=== PATIENT | female | born 1940 ===

== ENCOUNTER 2016-12-06 19:30 | Inpatient (IN) | payer MEDICARE, BC ==
[~2016-12-06] VITALS: Ht 157.5 cm; Wt 54.1 kg
[~2016-12-06 19:30] MED LIST: ACET500T68 PO; ALBU2.5V5 NEB; AMMO385C5 TP; AMOX1TAB58 PO; BENZ1LOZ48 MM; BENZ1TAB5 PO; BENZ2TAB5 PO; CALC1TAB67 PO; CEFT1FRO2 IV; CITA20TA5 PO; CRESTOR20 MG PO; CYCL1DRO OU; DEXT1DRO7 OP; DOCU100T5 PO; DONE10TA7 PO; GUAI600T28 PO; IPRA3AMP NEB; LAMO200T25 PO; LIPITOR80 MG PO; LISI-338 PO; LORA1TAB PO; MAG30ORA2 PO; MAGN2400 PO; MAGN400T3 PO; MEMA10TA PO; MEMA28CA PO; METF10002 PO; METH29OI TP; METO25TA4 PO; OLAN20TA7 PO; OMEP40CA5 PO; OXCA300T PO; OXYB5TAB7 PO; PANT40TA3 PO; POLY15DR7 OU; POLY17PO3 PO; ROPI0.5T2 PO; SENN8.6T3 PO; SODI104S NS; ZIPR20CA2 PO; ZIPR20VI IM; ZIPR40CA2 PO
[2016-12-06] MEDS ORDERED: METHYL SALICYLATE/MENTHOL TOPICAL OINTMENT 29GM TUBE. TP PRN (20:15)
[2016-12-06] MEDS ORDERED: ACETAMINOPHEN 325 MG TABLET PO PRN (20:15)
[2016-12-06] MEDS ORDERED: MAG HYDROX/AL HYDROX/SIMETH 30 ML ORAL.SUSP PO PRN (20:15)
[2016-12-06] MEDS ORDERED: FERR-26 PO (20:53)
[2016-12-06] MEDS ORDERED: METF10002 PO (20:53)
[2016-12-06] MEDS ORDERED: METO25TA9 PO (20:53)
[2016-12-06] MEDS ORDERED: ACET650T89 PO (20:53)
[2016-12-06] MEDS ORDERED: LISI-338 PO (20:53)
[2016-12-06] MEDS ORDERED: DEXT1DRO7 OU ×2 (20:53)
[2016-12-06] MEDS ORDERED: OMEP40CA5 PO (20:53)
[2016-12-06 21:00] LABS: BASO % 0 % (0-3); EOS % 0 % (0-3); HEMATOCRIT 33.1 % (36.0-47.0); HEMOGLOBIN 10.9 g/dL (12.0-15.5); LYMPH # 2.6 x10^3/uL (1.0-4.8); LYMPH % 19 % (24-48); MEAN CORPUSCULAR HEMOGLOBIN 29 pg (25-35); MEAN CORPUSCULAR HGB CONC 33 g/dL (31-37); MEAN CORPUSCULAR VOLUME 88 fL (79-100); MONO # 1.2 x10^3/uL (0.0-1.1); MONO % 9 % (0-9); NEUT # 9.5 x10^3uL (1.8-7.7); NEUT % 71 % (31-73); PLATELET COUNT 569 x10^3/uL (140-400); RED BLOOD COUNT 3.76 x10^6/uL (3.50-5.40); RED CELL DISTRIBUTION WIDTH 15.3 % (11.5-14.5); WHITE BLOOD COUNT 13.4 x10^3/uL (4.0-11.0)
[2016-12-06 21:08] LABS: ALBUMIN 3.5 g/dL (3.4-5.0); ALBUMIN/GLOBULIN RATIO 0.7 (1.0-1.7); CALCIUM 9.1 mg/dL (8.5-10.1); CREATININE 0.8 mg/dL (0.6-1.0); GFR 69.4; MAGNESIUM 1.5 mg/dL (1.8-2.4); POTASSIUM 3.7 mmol/L (3.5-5.1); TOTAL BILIRUBIN 0.4 mg/dL (0.2-1.0); TOTAL PROTEIN 8.3 g/dL (6.4-8.2)
--- NOTE | 2016-12-06 21:08 | PDOC ---
Exam Adrian Demential Exam: Adrian Note: Please also refer to the separate dictated note~for this date of service dictated separately.~Patient seen individually. Discussed the patient with Nursing staff reviewed the chart.~Reviewed interim history and current functioning. Reviewed vital signs,~Labs/ Radiology~and current medications noted below. Continue current treatment with the changes noted in the dictated addendum note Assessment: Labs: Laboratory Tests Test 12/06/16 20:48 White Blood Count 13.4x10^3/uL (4.0-11.0) H Red Blood Count 3.76x10^6/uL (3.50-5.40) Hemoglobin 10.9g/dL (12.0-15.5) L Hematocrit 33.1% (36.0-47.0) L Mean Corpuscular Volume 88fL (79-100) Mean Corpuscular Hemoglobin 29pg (25-35) Mean Corpuscular Hemoglobin Concent 33g/dL (31-37) Red Cell Distribution Width 15.3% (11.5-14.5) H Platelet Count 569x10^3/uL (140-400) #H Neutrophils (%) (Auto) 71% (31-73) Lymphocytes (%) (Auto) 19% (24-48) L Monocytes (%) (Auto) 9% (0-9) Eosinophils (%) (Auto) 0% (0-3) Basophils (%) (Auto) 0% (0-3) Neutrophils # (Auto) 9.5x10^3uL (1.8-7.7) H Lymphocytes # (Auto) 2.6x10^3/uL (1.0-4.8) Monocytes # (Auto) 1.2x10^3/uL (0.0-1.1) H Eosinophils # (Auto) 0.0x10^3/uL (0.0-0.7) Basophils # (Auto) 0.0x10^3/uL (0.0-0.2) Current Medications: Meds: Current Medications Acetaminophen (Tylenol) 650 mg PRN Q6HRS PRN PO PAIN / TEMP; Start 12/06/16 at 20:15 Multi-Ingredient Ointment (Analgesic Pryor) 1 dain PRN QID PRN TP MUSCLE PAIN; Start 3/21/17 at 20:15 Al Hydroxide/Mg Hydroxide (Mylanta Plus Xs) 15 ml PRN AFTMEALHC PRN PO DYSPEPSIA; Start 12/06/16 at 20:15 Magnesium Hydroxide (Milk Of Magnesia) 2,400 mg PRN QHS PRN PO CONSTIPATION; Start 12/06/16 at 20:15 Citalopram Hydrobromide (Celexa) 20 mg HS PO ; Start 12/06/16 at 21:00 Memantine (Namenda) 10 mg BID PO ; Start 12/06/16 at 21:00 Oxcarbazepine (Trileptal) 300 mg BID PO ; Start 12/06/16 at 21:00 Ziprasidone (Geodon) 40 mg BIDWMEALS PO ; Start 12/06/16 at 21:00 Non-Formulary Medication 200 mg HS PO MOOD STABIZILER; Start 12/06/16 at 21:00; Status UNV Active Scripts Active Reported Omeprazole 40 Mg Capsule.dr 40 Mg PO DAILY Artificial Tears (Dextran 70/Hypromellose) 1 Each Droperette 1 Each OU DAILY Artificial Tears (Dextran 70/Hypromellose) 1 Each Droperette 1 Each OU PRN QHS PRN Arthritis Pain (Acetaminophen) 650 Mg Tablet.er 650 Mg PO DAILY Metoprolol Succinate ( Xl ) (Metoprolol Succinate) 25 Mg Tab.er.24h 12.5 Mg PO BID Metformin Hcl 1,000 Mg Tablet 1,000 Mg PO BID Lisinopril 5 Mg Tablet 5 Mg PO DAILY Ferrous Sulfate 325 Mg Tablet 325 Mg PO BID Geodon (Ziprasidone Hcl) 40 Mg Capsule 40 Mg PO BID Give with food Oxcarbazepine 300 Mg Tablet 300 Mg PO BID Magnesium Oxide 400 Mg Tablet 400 Mg PO TID Namenda (Memantine Hcl) 10 Mg Tablet 10 Mg PO BID Lipitor (Atorvastatin Calcium) 80 Mg Tablet 80 Mg PO QHS Ropinirole Hcl 0.5 Mg Tablet 0.5 Mg PO TID Polyethylene Glycol 3350 17 Gm Powd.pack 17 Gm PO BID Oxybutynin Chloride 5 Mg Tablet 2.5 Mg PO DAILY Milk Of Magnesia (Magnesium Hydroxide) 2,400 Mg/10 Ml Oral.susp 2,400 Mg PO PRN DAILY PRN Lamotrigine 200 Mg Tab.er.24 200 Mg PO HS Docusate Sodium 100 Mg Tablet 200 Mg PO PRN HS PRN Restasis (Cyclosporine) 1 Each Droperette 1 Drop OU BID Citalopram Hbr (Citalopram Hydrobromide) 20 Mg Tablet 20 Mg PO HS Calcitrate + Vit D Caplet (Calcium Citrate/Vitamin D3) 1 Each Tablet 1 Tab PO DAILY Benztropine Mesylate 2 Mg Tablet 2 Mg PO BID Acetaminophen 500 Mg Tablet 650 Mg PO PRN Q6HRS PRN MAXIMUM DOSE OF ACETAMINIOPHEN IS 4,000 MG IN 24 HOURS FROM ALL SOURCES FOR ADULTS. LAST DOSE GIVEN: NOT GIVEN THIS ADMISSION NEXT DOSE DUE: DATE: TODAY TIME: IF NEEDED Diagnosis: Problems: (1) Healthcare-associated pneumonia (2) Anxiety disorder (3) Impulse control disorder (4) Psychosis, atypical (5) Schizoaffective disorder, chronic condition with acute exacerbation DONNELL VELASQUEZ MD Dec 06, 2016 21:08
[2016-12-06] MEDS ORDERED: lamoTRIgine 100 MG TABLET. PO SCH (21:30)
[2016-12-06] MEDS: ZIPRASIDONE 40 MG CAPSULE. PO SCH (22:03)
[2016-12-06] MEDS: CITALOPRAM 20 MG TABLET. PO SCH (22:03)
[2016-12-06] MEDS: MEMANTINE 10 MG TABLET. PO SCH (22:04)
[2016-12-06] MEDS: ATORVASTATIN CALCIUM 20 MG TABLET PO SCH (22:04)
[2016-12-06] MEDS: OLANZAPINE ZYDIS 5 MG TAB.RAPDIS PO PRN (22:16)
[2016-12-06] MEDS: HYDROXYZINE HCL 25 MG TABLET PO PRN (22:17)
[2016-12-06] MEDS: lamoTRIgine 100 MG TABLET. PO SCH (22:17)
[2016-12-06 23:17] VITALS: BP 199/107
[2016-12-07 00:53] VITALS: BP 151/72
[2016-12-07] MEDS: OLANZAPINE ZYDIS 5 MG TAB.RAPDIS PO PRN (01:55)
[2016-12-07] MEDS: HYDROXYZINE HCL 25 MG TABLET PO PRN (01:55)
[2016-12-07] MEDS ORDERED: DEXTRAN OU PRN (06:00)
[2016-12-07] MEDS ORDERED: HYPROMELLOSE OU PRN (06:00)
[2016-12-07] MEDS ORDERED: NON FORMULARY ITEM (Magnesium Hydroxide (Milk Of Magnesia) 2,400 MG) PO PRN (06:00)
[2016-12-07] MEDS ORDERED: traZODone 100 MG TABLET. PO PRN (06:00)
[2016-12-07] MEDS ORDERED: ACETAMINOPHEN 325 MG TABLET PO PRN (06:00)
[2016-12-07] MEDS ORDERED: DOCUSATE SODIUM 100 MG CAPSULE PO PRN (06:15)
[2016-12-07] MEDS ORDERED: traZODone 50 MG TABLET. PO ONE (06:30)
[2016-12-07 07:43] VITALS: BP 114/73
[2016-12-07] MEDS: METFORMIN 500 MG TABLET. PO SCH ×2 (08:34→16:57)
[2016-12-07] MEDS: ZIPRASIDONE 40 MG CAPSULE. PO SCH ×2 (08:34→16:57)
[2016-12-07] MEDS: PANTOPRAZOLE 40 MG TABLET. PO SCH (08:34)
[2016-12-07] MEDS: ACETAMINOPHEN 650 MG TABLET.ER PO SCH (08:35)
[2016-12-07] MEDS: LISINOPRIL 5 MG TABLET. PO SCH (08:36)
[2016-12-07] MEDS: rOPINIRole 0.5 MG TABLET. PO SCH ×3 (08:36→19:41)
[2016-12-07] MEDS: OXYBUTYNIN CHLORIDE 5 MG TABLET PO SCH (08:36)
[2016-12-07] MEDS: MEMANTINE 10 MG TABLET. PO SCH ×2 (08:36→19:41)
[2016-12-07] MEDS: MAGNESIUM OXIDE 400 MG TABLET PO SCH ×3 (08:36→19:42)
[2016-12-07] MEDS: lamoTRIgine 100 MG TABLET. PO SCH (08:37)
[2016-12-07] MEDS: FERROUS SULFATE 325 MG TABLET PO SCH ×2 (08:37→19:41)
[2016-12-07] MEDS: METOPROLOL TART IMMED RELEASE 25 MG TABLET PO SCH ×2 (08:37→19:43)
[2016-12-07] MEDS: BENZTROPINE MESYLATE 1 MG TABLET PO SCH ×2 (08:37→19:42)
[2016-12-07] MEDS: CALCIUM CARB/VIT D3 500/200 TABLET PO SCH (08:38)
[2016-12-07] MEDS: CYCLOSPORINE 0.05% OPTH DROPERETTE. OU SCH ×2 (08:38→20:11)
[2016-12-07] MEDS: POLYVINYL ALCOHOL 1.4% OPHTH SOLUTION 15ML BOTTLE. OU SCH (08:38)
[2016-12-07] MEDS: POLYETHYLENE GLYCOL 3350 17 GM PACKET. PO SCH ×2 (08:38→19:43)
--- NOTE | 2016-12-07 10:31 | HP ---
ADMIT DATE: 12/06/2016 ADMISSION PSYCHIATRIC HISTORY/EVALUATION This is a late entry for 12/06/2016. SUBJECTIVE: I met with the patient the evening of 12/06/2016 for this assessment in her room. Discussed with nursing staff, reviewed the chart. I had previously discussed with nursing staff after we receive the referral from the [facility] Emergency Room where she presented from [facility] on account of increased agitation, delusions, aggression, yelling, screaming, grandiose, unmanageable and dangerous behaviors. She had failed outpatient psychiatric interventions. IDENTIFYING DATA: The patient is a 76-year-old female, who was readmitted from the Emergency Room at [facility], referred from her fdc as noted above. CHIEF COMPLAINT: "Get the out of here. Don't say hello to me. Get out." The patient was extremely loud, disruptive, paranoid, psychotic. At the time of this dictation, I have been called by the nursing staff several times during the night late last evening and then early this morning on account of marked agitation, aggression, disruptive behaviors on the unit despite all the p.r.n. she has been given. She remains psychotic, dangerous, unmanageable and we made further adjustments to help compensate for this with her psychotropics. HISTORY OF PRESENT ILLNESS: The patient has a history of schizoaffective disorder, bipolar type. She has been residing at the above fdc for some time. Over the past several days, she has been increasingly agitated, psychotic, aggressive, disruptive as noted above. She has been yelling, screaming, physically and verbally aggressive with staff, grandiose. No active suicidal or homicidal ideation. She does have cognitive deficits, but despite this is reasonably oriented. PAST PSYCHIATRIC HISTORY: Schizoaffective disorder, bipolar type, mixed with psychotic symptoms. PAST MEDICAL HISTORY: Hypertension, hyperlipidemia, chronic kidney disease, GERD, overactive bladder, type 2 diabetes mellitus. ALLERGIES: HALDOL, RISPERDAL, MELLARIL. CURRENT PSYCHOTROPICS: Medication administration record was reviewed. FAMILY HISTORY: Noncontributory. SOCIAL HISTORY: No history of alcohol, drug abuse, physical, sexual or elder abuse history is noted. She is not known to be a perpetrator. MENTAL STATUS EXAMINATION: The patient was seen individually in her room the evening of 12/06/2016. She is extremely labile, psychotic, agitated, aggressive verbally as noted above. Speech coherent, rapid, loud at times. Abstraction fair, computation impaired, language function intact, attention span short, mood and affect labile. She denies active suicidal or homicidal ideation, but unable to engage in a conversation to any length to be able to question her further on this. Attention span short. Language function intact. Intellect average. Insight poor. Judgment marginal. LABORATORY DATA: Reviewed. REVIEW OF SYSTEMS: No CV, , pulmonary, eye, ENT system symptoms on review. VITAL SIGNS: Temperature 97.8, pulse 88, respirations 18. IMPRESSION: Schizoaffective disorder, bipolar type, mixed with psychotic features. Anxiety disorder, unspecified; impulse control disorder, unspecified; bipolar 1 disorder, mixed with psychotic features. Rest diagnoses as noted above. PLAN: Admit to geropsychiatry unit at [facility]. I will see the patient daily individually from a psychiatric standpoint. She will be followed medically per Dr. Salazar/Dr. Pacheco. Observe baseline, continue current psychotropics and adjust psychotropics as clinically indicated. We have added p.r.n. Zyprexa, hydroxyzine and we will reassess her mood stabilizers. MAN Gracia VELASQUEZ MD DR: JUSTIN/pattie JOB#: [id number] / [id number]
[2016-12-07 13:59] LABS: IRON,SERUM 38 ug/dL (50-170)
--- NOTE | 2016-12-07 14:42 | ACF ---
Admission Criteria Forms PSYCHIATRIC DISORDERS Clinical Indications for Inpatient Care (Place 'X' for any and all applicable criteria): Ongoing inpatient care may be needed for ANY ONE of the following(1)(2)(3)(4)(6) (7)(8): [ ]I. Danger to self or others not manageable at lower level of care. [ ]II. Grave disability (eg, inability to perform self care necessary at lower level of care) [X ]III. Agitation or inappropriate behavior interfering with care for primary condition (eg, attempting to discontinue lines or drains prematurely, unable to cooperate with respiratory care) [X ]IV. Severe disability or disorder indicated by ALL of the following: [X ]a) Severe behavioral health disorder-related symptoms or condition indicated by ANY ONE of the following: [ ]i) Severe problem with cognition, memory, judgment, or impulse control [X ]ii) Severe clinical manifestations (eg, hallucinations , delusions, other acute psychotic symptoms, anita, extreme agitation or anxiety) [ X]b) Patient management at lower level of care is not feasible until acute intervention or modification is initiated. Extended stay beyond goal length of stay for the primary condition may be indicated when ANY ONE of the following is present: (1)(2)(3)(4): [ ]a) Patient is a danger to self or others and not manageable at lower level of care. [ ]b) Behavior crisis management, including physical or chemical restraints, is required and is not available at a lower level of care. [ ]c) Behavioral symptoms (e.g., agitation, somnolence, inappropriate behavior) are present, and are not manageable at a lower level of care. [ ]d) Patient cannot understand follow-up treatment and crisis plan. [ ]e) Provider and supports are not sufficiently available at lower level of care. [ ]f) Patient cannot participate (e.g., verify absence of plan for harm) and is in needed of monitoring. The original [facility] [employer] content created by [facility] [employer] has been revised. The portions of the content which have been revised are identified through the use of italic text or in bold, and [email or web address] has neither reviewed nor approved the modified material. All other unmodified content is copyright [facility]. Please see references footnoted in the original [facility] edition 2016 Admission Criteria Met?: Yes COURT ANGELO Dec 07, 2016 14:42
--- NOTE | 2016-12-07 14:55 | HP ---
ADMIT DATE: 12/07/2016 MEDICAL HISTORY AND PHYSICAL FOR THE SENIOR BEHAVIOR UNIT REASON FOR ADMISSION TO THE SENIOR BEHAVIORAL UNIT: This is a 76-year-old female, who was referred from the [place] [facility] after failing outpatient intervention for agitation, delusions, aggressiveness with staff, grandiose thoughts, recurring theme of being and in labor. She was admitted here in 08/2016 for similar problems. PAST MEDICAL HISTORY: Dementia, psychosis, schizoaffective disorder with bipolar features, depression, diabetes, hypertension. Past hospitalized in August, had delirium. She has urinary retention, chronic kidney disease, diabetes, GERD, dry eyes. MEDICATIONS: Reviewed and are available on the NOV. ALLERGIES: HALDOL, RESPIRDAL, THIORIDAZINE. SOCIAL HISTORY: Resides at [facility] and had been treated with antibiotics. REVIEW OF SYSTEMS: The patient states she does not feel particularly well, but cannot give me any specifics. She is sitting in the hallway, calmly talking. OBJECTIVE: VITAL SIGNS: Blood pressure 114/73, pulse 97, temperature 97.3, O2 sat is 97% on room air, height 62 inches. GENERAL: Her weight is pending, but the patient looks more emaciated than she did previously. Her color is pale. HEENT: Her eyes are clear. Her nose was patent. Her throat was clear. Her gag reflex was intact. NECK: Supple. LUNGS: Clear. CARDIOVASCULAR: Regular rhythm and rate. ABDOMEN: Soft, nontender. EXTREMITIES: 1+ edema. MUSCULOSKELETAL: No tenderness. Gait was not examined, but is ambulating without assistance. Her parlor maid was good. NEUROLOGIC: No gross tremors were noted. Her cranial nerves were intact. She can follow directions. MENTAL STATUS: Right now is calm and cooperative, but confused. LABORATORY DATA: White blood cell count 13.4, hemoglobin , hematocrit 33.1. Chemistry: Magnesium was 1.5, iron 38, alkaline phosphatase 170. ASSESSMENT: Psychosis with schizoaffective disorder, bipolar type, anxiety, hypomagnesemia, iron deficiency, gastroesophageal reflux disease, fall risk, frail elderly. PLAN: Treat her medical conditions. Follow along with Dr. Carter. BILLIE STANTON DO DR: CANDY/pattie JOB#: [id number] / [id number]
[2016-12-07 14:56] LABS: THYROID STIM HORMONE (TSH) 2.251 uIU/mL (0.358-3.740)
[2016-12-07 16:24] VITALS: BP 153/85
[2016-12-07 17:10] LABS: T3 TOTAL 82 ng/dL (71-180); THYROXINE 8.4 ug/dL (4.5-12.0)
[2016-12-07] MEDS: ATORVASTATIN CALCIUM 20 MG TABLET PO SCH (19:40)
[2016-12-07] MEDS: CITALOPRAM 20 MG TABLET. PO SCH (19:42)
[2016-12-07] MEDS: DIVALPROEX ER 500 MG TAB.ER.24H PO SCH (20:10)
[2016-12-07] MEDS: traZODone 100 MG TABLET. PO SCH (20:11)
[2016-12-07] MEDS ORDERED: LAMOTRIGINE PO SCH (21:00)
--- NOTE | 2016-12-07 21:21 | PDOC ---
Exam Adrian Demential Exam: Adrian Note: Please also refer to the separate dictated note~for this date of service dictated separately.~Patient seen individually. Discussed the patient with Nursing staff reviewed the chart.~Reviewed interim history and current functioning. Reviewed vital signs,~Labs/ Radiology~and current medications noted below. Continue current treatment with the changes noted in the dictated addendum note Assessment: Vital Signs: Vital Signs Date Time Temp Pulse Resp B/P Pulse Ox O2 Delivery O2 Flow Rate FiO2 12/07/16 19:43 99 153/85 12/07/16 16:24 98.6 16 95 12/06/16 23:17 Room Air I&O Intake and Output 12/07/16 07:00 Intake Total 240 ml Balance 240 ml Intake Oral 240 ml # Voids 2 Current Medications: Meds: Current Medications Acetaminophen (Tylenol) 650 mg PRN Q6HRS PRN PO PAIN / TEMP; Start 12/06/16 at 20:15 Multi-Ingredient Ointment (Analgesic Carlton) 1 dain PRN QID PRN TP MUSCLE PAIN; Start 12/06/16 at 20:15 Al Hydroxide/Mg Hydroxide (Mylanta Plus Xs) 15 ml PRN AFTMEALHC PRN PO DYSPEPSIA; Start 12/06/16 at 20:15 Magnesium Hydroxide (Milk Of Magnesia) 2,400 mg PRN QHS PRN PO CONSTIPATION; Start 12/06/16 at 20:15 Citalopram Hydrobromide (Celexa) 20 mg HS PO Last administered on 12/07/16 19: 42; Start 12/06/16 at 21:00 Memantine (Namenda) 10 mg BID PO Last administered on 12/07/16 19:41; Start at 21:00 Oxcarbazepine (Trileptal) 300 mg BID PO Last administered on 12/07/16 19:41; Start 12/06/16 at 21:00 Ziprasidone (Geodon) 40 mg BIDWMEALS PO Last administered on 12/07/16 16:57; Start 12/06/16 at 21:00 Lamotrigine (LaMICtal) 200 mg QHS PO ; Start 12/06/16 at 21:30; Status Cancel Non-Formulary Medication 1 ea QHS PO ; Start 12/07/16 at 21:00; Status Cancel Lamotrigine (LaMICtal) 100 mg BID PO Last administered on 12/07/16 08:37; Start 12/06/16 at 22:15; Stop 12/07/16 at 18:21; Status DC Atorvastatin Calcium (Lipitor) 80 mg QHS PO Last administered on 12/07/16 19: 40; Start 12/06/16 at 22:00 Metformin HCl (Glucophage) 1,000 mg BIDWMEALS PO Last administered on 16:57; Start 12/07/16 at 08:00 Hydroxyzine HCl (Atarax) 50 mg PRN Q2HR PRN PO PSYCHOSIS Last administered on 01:55; Start 12/06/16 at 22:00 Olanzapine (Zyprexa Zydis) 5 mg PRN Q2HR PRN PO PSYCHOSIS Last administered on 12/07/16 01:55; Start 12/06/16 at 22:00 Acetaminophen (Tylenol) 650 mg PRN Q6HRS PRN PO fever/pain; Start 12/07/16 at 06:00 Acetaminophen (Tylenol Arthritis) 650 mg DAILY PO Last administered on 08:35; Start 12/07/16 at 09:00 Cyclosporine (Restasis) 1 drop BID OU Last administered on 12/07/16 20:11; Start 12/07/16 at 09:00 Ferrous Sulfate (Feosol) 325 mg BID PO Last administered on 12/07/16 19:41; Start 12/07/16 at 09:00 Lisinopril (Prinivil) 5 mg DAILY PO Last administered on 12/07/16 08:36; Start 12/07/16 at 09:00 Magnesium Oxide (Magnesium Oxide) 400 mg TID PO Last administered on 12/07/16 19:42; Start 12/07/16 at 09:00 Metoprolol Tartrate (Lopressor) 12.5 mg BID PO Last administered on 12/07/16 19:43; Start 12/07/16 at 09:00 Oxybutynin Chloride (Ditropan) 2.5 mg DAILY PO Last administered on 12/07/16 08:36; Start 12/07/16 at 09:00 Polyethylene Glycol (miraLAX) 17 gm BID PO Last administered on 12/07/16 19:43 ; Start 12/07/16 at 09:00 Ropinirole HCl (Requip) 0.5 mg TID PO Last administered on 12/07/16 19:41; Start 12/07/16 at 09:00 Benztropine Mesylate (Cogentin) 2 mg BID PO Last administered on 12/07/16 19: 42; Start 12/07/16 at 09:00 Calcium/Vitamin D (Oscal D 500mg/ 200uts) 1 tab DAILY PO Last administered on 08:38; Start 12/07/16 at 09:00 Artificial Tears (Artificial Tears) 1 drop DAILY OU Last administered on 08:38; Start 12/07/16 at 09:00 Non-Formulary Medication 1 each PRN QHS PRN OU DRY EYE; Start 12/07/16 at 06:00 ; Status UNV Docusate Sodium (Colace) 200 mg PRN QHS PRN PO CONSTIPATION; Start 12/07/16 at 06:15 Non-Formulary Medication 2,400 mg PRN DAILY PRN PO CONSTIPATION; Start at 06:00; Status UNV Pantoprazole Sodium (Protonix) 40 mg DAILYAC PO Last administered on 12/07/16 08:34; Start 12/07/16 at 07:30 Trazodone HCl (Desyrel) 100 mg 1X ONCE PO Last administered on 12/07/16 06:18 ; Start 12/07/16 at 06:30; Stop 12/07/16 at 06:31; Status DC Trazodone HCl (Desyrel) 100 mg PRN QHS PRN PO INSOMNIA; Start 12/07/16 at 06:00 Divalproex Sodium (Depakote Er) 500 mg QHS PO Last administered on 12/07/16 20 :10; Start 12/07/16 at 21:00 Trazodone HCl (Desyrel) 100 mg QHS PO Last administered on 12/07/16 20:11; Start 12/07/16 at 21:00 Active Scripts Active Reported Omeprazole 40 Mg Capsule.dr 40 Mg PO DAILY Artificial Tears (Dextran 70/Hypromellose) 1 Each Droperette 1 Each OU DAILY Artificial Tears (Dextran 70/Hypromellose) 1 Each Droperette 1 Each OU PRN QHS PRN Arthritis Pain (Acetaminophen) 650 Mg Tablet.er 650 Mg PO DAILY Metoprolol Succinate ( Xl ) (Metoprolol Succinate) 25 Mg Tab.er.24h 12.5 Mg PO BID Metformin Hcl 1,000 Mg Tablet 1,000 Mg PO BID Lisinopril 5 Mg Tablet 5 Mg PO DAILY Ferrous Sulfate 325 Mg Tablet 325 Mg PO BID Geodon (Ziprasidone Hcl) 40 Mg Capsule 40 Mg PO BID Give with food Oxcarbazepine 300 Mg Tablet 300 Mg PO BID Magnesium Oxide 400 Mg Tablet 400 Mg PO TID Namenda (Memantine Hcl) 10 Mg Tablet 10 Mg PO BID Lipitor (Atorvastatin Calcium) 80 Mg Tablet 80 Mg PO QHS Ropinirole Hcl 0.5 Mg Tablet 0.5 Mg PO TID Polyethylene Glycol 3350 17 Gm Powd.pack 17 Gm PO BID Oxybutynin Chloride 5 Mg Tablet 2.5 Mg PO DAILY Milk Of Magnesia (Magnesium Hydroxide) 2,400 Mg/10 Ml Oral.susp 2,400 Mg PO PRN DAILY PRN Lamotrigine 200 Mg Tab.er.24 200 Mg PO HS Docusate Sodium 100 Mg Tablet 200 Mg PO PRN HS PRN Restasis (Cyclosporine) 1 Each Droperette 1 Drop OU BID Citalopram Hbr (Citalopram Hydrobromide) 20 Mg Tablet 20 Mg PO HS Calcitrate + Vit D Caplet (Calcium Citrate/Vitamin D3) 1 Each Tablet 1 Tab PO DAILY Benztropine Mesylate 2 Mg Tablet 2 Mg PO BID Acetaminophen 500 Mg Tablet 650 Mg PO PRN Q6HRS PRN MAXIMUM DOSE OF ACETAMINIOPHEN IS 4,000 MG IN 24 HOURS FROM ALL SOURCES FOR ADULTS. LAST DOSE GIVEN: NOT GIVEN THIS ADMISSION NEXT DOSE DUE: DATE: TODAY TIME: IF NEEDED Diagnosis: Problems: (1) Anxiety disorder (2) Impulse control disorder (3) Psychosis, atypical (4) Schizoaffective disorder, chronic condition with acute exacerbation DONNELL VELASQUEZ MD Dec 07, 2016 21:21
--- NOTE | 2016-12-07 23:56 | EKG ---
[address] [address] Test Date: 2016-12-07 Test Time: 20:15:14 Pat Name: JULIAN SCHAEFER Department: Room: [address] [place] [address] Gender: F [employer] Technician: : 1940 Requested By: DONNELL VELASQUEZ Order Number: [id number] Reading MD: Braxton Proctor Measurements Intervals Basehor Rate: 101 P: -11 [place]: 168 QRS: -36 QRSD: 88 T: 50 QT: 382 QTc: 496 Interpretive Statements SINUS TACHYCARDIA Electronically Signed On 01-02-2017 14:46:38 CDT by Braxton Proctor
[2016-12-08 01:11] LABS: HEMOGLOBIN A1C 5.3 % (4.8-5.6)
[2016-12-08 03:12] LABS: RPR REFLEX Non Reactive (Non Reactive)
[2016-12-08 06:30] VITALS: BP 143/70
[2016-12-08 09:29] LABS: BILIRUBIN,URINE NEG (NEG); CLARITY,URINE CLEAR; COLOR,URINE AMBER; GLUCOSE,URINE NEG (NEG)
[2016-12-08 09:30] LABS: BACTERIA,URINE FEW /HPF (0-FEW); HYALINE CASTS, URINE MOD /HPF; NITRITE,URINE NEG (NEG); SQUAMOUS EPITHELIAL CELL,UR OCC /LPF; UROBILINOGEN,URINE 0.2 mg/dL (0.2 mg/dL)
[2016-12-08 10:03] LABS: BASO # 0.1 x10^3/uL (0.0-0.2); BASO % 0 % (0-3); EOS % 0 % (0-3); HEMATOCRIT 32.9 % (36.0-47.0); HEMOGLOBIN 10.5 g/dL (12.0-15.5); LYMPH % 16 % (24-48); MEAN CORPUSCULAR HEMOGLOBIN 29 pg (25-35); MEAN CORPUSCULAR HGB CONC 32 g/dL (31-37); MEAN CORPUSCULAR VOLUME 89 fL (79-100); MONO % 8 % (0-9); NEUT # 9.6 x10^3uL (1.8-7.7); NEUT % 76 % (31-73); PLATELET COUNT 542 x10^3/uL (140-400); RED CELL DISTRIBUTION WIDTH 15.2 % (11.5-14.5); WHITE BLOOD COUNT 12.7 x10^3/uL (4.0-11.0)
[2016-12-08 10:07] LABS: ALBUMIN 3.5 g/dL (3.4-5.0); ALBUMIN/GLOBULIN RATIO 0.8 (1.0-1.7); CALCIUM 9.4 mg/dL (8.5-10.1); GFR 53.6; POTASSIUM 4.3 mmol/L (3.5-5.1); TOTAL BILIRUBIN 0.3 mg/dL (0.2-1.0); TOTAL PROTEIN 7.9 g/dL (6.4-8.2)
[2016-12-08] MEDS: METOPROLOL TART IMMED RELEASE 25 MG TABLET PO SCH ×2 (10:18→20:44)
[2016-12-08] MEDS: PANTOPRAZOLE 40 MG TABLET. PO SCH (10:18)
[2016-12-08] MEDS: ACETAMINOPHEN 650 MG TABLET.ER PO SCH (10:18)
[2016-12-08] MEDS: BENZTROPINE MESYLATE 1 MG TABLET PO SCH ×2 (10:19→20:43)
[2016-12-08] MEDS: MAGNESIUM OXIDE 400 MG TABLET PO SCH ×3 (10:19→20:45)
[2016-12-08] MEDS: LISINOPRIL 5 MG TABLET. PO SCH (10:19)
[2016-12-08] MEDS: CALCIUM CARB/VIT D3 500/200 TABLET PO SCH (10:19)
[2016-12-08] MEDS: MEMANTINE 10 MG TABLET. PO SCH ×2 (10:19→20:43)
[2016-12-08] MEDS: rOPINIRole 0.5 MG TABLET. PO SCH ×3 (10:19→20:45)
[2016-12-08] MEDS: POLYVINYL ALCOHOL 1.4% OPHTH SOLUTION 15ML BOTTLE. OU SCH (10:20)
[2016-12-08] MEDS: CYCLOSPORINE 0.05% OPTH DROPERETTE. OU SCH ×2 (10:20→20:42)
[2016-12-08] MEDS: FERROUS SULFATE 325 MG TABLET PO SCH ×2 (10:20→20:46)
[2016-12-08] MEDS: OXYBUTYNIN CHLORIDE 5 MG TABLET PO SCH (10:20)
[2016-12-08] MEDS: ZIPRASIDONE 40 MG CAPSULE. PO SCH ×2 (10:20→17:08)
[2016-12-08] MEDS: POLYETHYLENE GLYCOL 3350 17 GM PACKET. PO SCH ×2 (10:20→20:45)
[2016-12-08] MEDS: METFORMIN 500 MG TABLET. PO SCH ×2 (10:20→17:08)
--- NOTE | 2016-12-08 15:35 | RAD ---
Indication change in mental status. Noncontrast images of the head were obtained. Note is made of a previous examination 09/08/2016. The calvarium appears unremarkable. The visualized paranasal sinuses appear normal. There is no subdural or epidural hematoma. The ventricles and sulci are within normal limits given the patient's age. There is no mass or midline shift. There is no hemorrhage. A significant change compared to the previous exam is not seen. IMPRESSION: No acute finding. No significant change PQRS Compliance Statement: One or more of the following individualized dose reduction techniques were utilized for this examination: 1. Automated exposure control 2. Adjustment of the mA and/or kV according to patient size 3. Use of iterative reconstruction technique
[2016-12-08 16:15] VITALS: BP 114/59
[2016-12-08] MEDS: ATORVASTATIN CALCIUM 20 MG TABLET PO SCH (20:42)
[2016-12-08] MEDS: traZODone 100 MG TABLET. PO SCH (20:44)
[2016-12-08] MEDS: DIVALPROEX ER 500 MG TAB.ER.24H PO SCH (20:44)
[2016-12-08] MEDS: CITALOPRAM 20 MG TABLET. PO SCH (20:44)
--- NOTE | 2016-12-08 21:06 | PDOC ---
Exam Adrian Demential Exam: Adrian Note: Please also refer to the separate dictated note~for this date of service dictated separately.~Patient seen individually. Discussed the patient with Nursing staff reviewed the chart.~Reviewed interim history and current functioning. Reviewed vital signs,~Labs/ Radiology~and current medications noted below. Continue current treatment with the changes noted in the dictated addendum note Assessment: Vital Signs: Vital Signs Date Time Temp Pulse Resp B/P Pulse Ox O2 Delivery O2 Flow Rate FiO2 12/08/16 20:44 84 114/59 12/08/16 16:15 97.8 18 95 12/06/16 23:17 Room Air I&O Intake and Output 12/08/16 07:00 Intake Total 120 ml Balance 120 ml Intake Oral 120 ml Labs: Laboratory Tests Test 12/08/16 09:05 12/08/16 09:40 12/08/16 12:46 12/08/16 17:21 Urine Collection Type Unknown Urine Color Chas[place] Urine Clarity Clear Urine pH 5.5 Urine Specific [place] 1.015 Urine Protein 30 mg/dl (NEG-TRACE) Urine Glucose (UA) Negmg/dL (NEG) Urine Ketones (Stick) Tracemg/dL (NEG) Urine Blood Neg (NEG) Urine Nitrite Neg (NEG) Urine Bilirubin Neg (NEG) Urine Urobilinogen Dipstick 0.2mg/dL (0.2 mg/dL) Urine Leukocyte Esterase Neg (NEG) Urine RBC 1-2/HPF (0-2) Urine WBC 5-10/HPF (0-4) Urine Squamous Epithelial Cells Occ/LPF Urine Bacteria Few/HPF (0-FEW) Urine Hyaline Casts Mod/HPF Urine Mucus Mod/LPF White Blood Count 12.7x10^3/uL (4.0-11.0) H Red Blood Count 3.70x10^6/uL (3.50-5.40) Hemoglobin 10.5g/dL (12.0-15.5) L Hematocrit 32.9% (36.0-47.0) L Mean Corpuscular Volume 89fL (79-100) Mean Corpuscular Hemoglobin 29pg (25-35) Mean Corpuscular Hemoglobin Concent 32g/dL (31-37) Red Cell Distribution Width 15.2% (11.5-14.5) H Platelet Count 542x10^3/uL (140-400) H Neutrophils (%) (Auto) 76% (31-73) H Lymphocytes (%) (Auto) 16% (24-48) L Monocytes (%) (Auto) 8% (0-9) Eosinophils (%) (Auto) 0% (0-3) Basophils (%) (Auto) 0% (0-3) Neutrophils # (Auto) 9.6x10^3uL (1.8-7.7) H Lymphocytes # (Auto) 2.0x10^3/uL (1.0-4.8) Monocytes # (Auto) 1.0x10^3/uL (0.0-1.1) Eosinophils # (Auto) 0.0x10^3/uL (0.0-0.7) Basophils # (Auto) 0.1x10^3/uL (0.0-0.2) Sodium Level 141mmol/L (136-145) Potassium Level 4.3mmol/L (3.5-5.1) Chloride Level 99mmol/L (98-107) Carbon Dioxide Level 31mmol/L (21-32) Anion Gap 11 (6-14) Blood Urea Nitrogen 23mg/dL (7-20) H Creatinine 1.0mg/dL (0.6-1.0) Estimated GFR (Cockcroft-Gault) 53.6 BUN/Creatinine Ratio 23 (6-20) H Glucose Level 173mg/dL (70-99) H Calcium Level 9.4mg/dL (8.5-10.1) Total Bilirubin 0.3mg/dL (0.2-1.0) Aspartate Amino Transferase (AST) 21U/L (15-37) Alanine Aminotransferase (ALT) 19U/L (14-59) Alkaline Phosphatase 179U/L (46-116) H Total Protein 7.9g/dL (6.4-8.2) Albumin 3.5g/dL (3.4-5.0) Albumin/Globulin Ratio 0.8 (1.0-1.7) L Glucose (Fingerstick) 149mg/dL (70-99) H 102mg/dL (70-99) H Test 12/08/16 19:12 Glucose (Fingerstick) 146mg/dL (70-99) H Current Medications: Meds: Current Medications Acetaminophen (Tylenol) 650 mg PRN Q6HRS PRN PO PAIN / TEMP; Start 12/06/16 at 20:15 Multi-Ingredient Ointment (Analgesic [place]) 1 dain PRN QID PRN TP MUSCLE PAIN; Start 12/06/16 at 20:15 Al Hydroxide/Mg Hydroxide (Mylanta Plus Xs) 15 ml PRN AFTMEALHC PRN PO DYSPEPSIA; Start 12/06/16 at 20:15 Magnesium Hydroxide (Milk Of Magnesia) 2,400 mg PRN QHS PRN PO CONSTIPATION; Start 12/06/16 at 20:15 Citalopram Hydrobromide (Celexa) 20 mg HS PO Last administered on 12/08/16 20: 44; Start 12/06/16 at 21:00 Memantine (Namenda) 10 mg BID PO Last administered on 12/08/16 20:43; Start at 21:00 Oxcarbazepine (Trileptal) 300 mg BID PO Last administered on 12/08/16 20:45; Start 12/06/16 at 21:00 Ziprasidone (Geodon) 40 mg BIDWMEALS PO Last administered on 12/08/16 17:08; Start 12/06/16 at 21:00 Lamotrigine (LaMICtal) 200 mg QHS PO ; Start 12/06/16 at 21:30; Status Cancel Non-Formulary Medication 1 ea QHS PO ; Start 12/07/16 at 21:00; Status Cancel Lamotrigine (LaMICtal) 100 mg BID PO Last administered on 12/07/16 08:37; Start 12/06/16 at 22:15; Stop 12/07/16 at 18:21; Status DC Atorvastatin Calcium (Lipitor) 80 mg QHS PO Last administered on 12/08/16 20: 42; Start 12/06/16 at 22:00 Metformin HCl (Glucophage) 1,000 mg BIDWMEALS PO Last administered on 17:08; Start 12/07/16 at 08:00 Hydroxyzine HCl (Atarax) 50 mg PRN Q2HR PRN PO PSYCHOSIS Last administered on 01:55; Start 12/06/16 at 22:00 Olanzapine (Zyprexa Zydis) 5 mg PRN Q2HR PRN PO PSYCHOSIS Last administered on 12/07/16 01:55; Start 12/06/16 at 22:00 Acetaminophen (Tylenol) 650 mg PRN Q6HRS PRN PO fever/pain; Start 12/07/16 at 06:00 Acetaminophen (Tylenol Arthritis) 650 mg DAILY PO Last administered on 10:18; Start 12/07/16 at 09:00 Cyclosporine (Restasis) 1 drop BID OU Last administered on 12/08/16 20:42; Start 12/07/16 at 09:00 Ferrous Sulfate (Feosol) 325 mg BID PO Last administered on 12/08/16 20:46; Start 12/07/16 at 09:00 Lisinopril (Prinivil) 5 mg DAILY PO Last administered on 12/08/16 10:19; Start 12/07/16 at 09:00 Magnesium Oxide (Magnesium Oxide) 400 mg TID PO Last administered on 12/08/16 20:45; Start 12/07/16 at 09:00 Metoprolol Tartrate (Lopressor) 12.5 mg BID PO Last administered on 12/08/16 20:44; Start 12/07/16 at 09:00 Oxybutynin Chloride (Ditropan) 2.5 mg DAILY PO Last administered on 12/08/16 10:20; Start 12/07/16 at 09:00 Polyethylene Glycol (miraLAX) 17 gm BID PO Last administered on 12/08/16 20:45 ; Start 12/07/16 at 09:00 Ropinirole HCl (Requip) 0.5 mg TID PO Last administered on 12/08/16 20:45; Start 12/07/16 at 09:00 Benztropine Mesylate (Cogentin) 2 mg BID PO Last administered on 12/08/16 20: 43; Start 12/07/16 at 09:00 Calcium/Vitamin D (Oscal D 500mg/ 200uts) 1 tab DAILY PO Last administered on 10:19; Start 12/07/16 at 09:00 Artificial Tears (Artificial Tears) 1 drop DAILY OU Last administered on 10:20; Start 12/07/16 at 09:00 Non-Formulary Medication 1 each PRN QHS PRN OU DRY EYE; Start 12/07/16 at 06:00 ; Status UNV Docusate Sodium (Colace) 200 mg PRN QHS PRN PO CONSTIPATION; Start 12/07/16 at 06:15 Non-Formulary Medication 2,400 mg PRN DAILY PRN PO CONSTIPATION; Start at 06:00; Status UNV Pantoprazole Sodium (Protonix) 40 mg DAILYAC PO Last administered on 12/08/16 10:18; Start 12/07/16 at 07:30 Trazodone HCl (Desyrel) 100 mg 1X ONCE PO Last administered on 12/07/16 06:18 ; Start 12/07/16 at 06:30; Stop 12/07/16 at 06:31; Status DC Trazodone HCl (Desyrel) 100 mg PRN QHS PRN PO INSOMNIA; Start 12/07/16 at 06:00 Divalproex Sodium (Depakote Er) 500 mg QHS PO Last administered on 12/08/16 20 :44; Start 12/07/16 at 21:00 Trazodone HCl (Desyrel) 100 mg QHS PO Last administered on 12/08/16 20:44; Start 12/07/16 at 21:00 Active Scripts Active Reported Omeprazole 40 Mg Capsule.dr 40 Mg PO DAILY Artificial Tears (Dextran 70/Hypromellose) 1 Each Droperette 1 Each OU DAILY Artificial Tears (Dextran 70/Hypromellose) 1 Each Droperette 1 Each OU PRN QHS PRN Arthritis Pain (Acetaminophen) 650 Mg Tablet.er 650 Mg PO DAILY Metoprolol Succinate ( Xl ) (Metoprolol Succinate) 25 Mg Tab.er.24h 12.5 Mg PO BID Metformin Hcl 1,000 Mg Tablet 1,000 Mg PO BID Lisinopril 5 Mg Tablet 5 Mg PO DAILY Ferrous Sulfate 325 Mg Tablet 325 Mg PO BID Geodon (Ziprasidone Hcl) 40 Mg Capsule 40 Mg PO BID Give with food Oxcarbazepine 300 Mg Tablet 300 Mg PO BID Magnesium Oxide 400 Mg Tablet 400 Mg PO TID Namenda (Memantine Hcl) 10 Mg Tablet 10 Mg PO BID Lipitor (Atorvastatin Calcium) 80 Mg Tablet 80 Mg PO QHS Ropinirole Hcl 0.5 Mg Tablet 0.5 Mg PO TID Polyethylene Glycol 3350 17 Gm Powd.pack 17 Gm PO BID Oxybutynin Chloride 5 Mg Tablet 2.5 Mg PO DAILY Milk Of Magnesia (Magnesium Hydroxide) 2,400 Mg/10 Ml Oral.susp 2,400 Mg PO PRN DAILY PRN Lamotrigine 200 Mg Tab.er.24 200 Mg PO HS Docusate Sodium 100 Mg Tablet 200 Mg PO PRN HS PRN Restasis (Cyclosporine) 1 Each Droperette 1 Drop OU BID Citalopram Hbr (Citalopram Hydrobromide) 20 Mg Tablet 20 Mg PO HS Calcitrate + Vit D Caplet (Calcium Citrate/Vitamin D3) 1 Each Tablet 1 Tab PO DAILY Benztropine Mesylate 2 Mg Tablet 2 Mg PO BID Acetaminophen 500 Mg Tablet 650 Mg PO PRN Q6HRS PRN MAXIMUM DOSE OF ACETAMINIOPHEN IS 4,000 MG IN 24 HOURS FROM ALL SOURCES FOR ADULTS. LAST DOSE GIVEN: NOT GIVEN THIS ADMISSION NEXT DOSE DUE: DATE: TODAY TIME: IF NEEDED Diagnosis: Problems: (1) Anxiety disorder (2) Impulse control disorder (3) Psychosis, atypical (4) Schizoaffective disorder, chronic condition with acute exacerbation DONNELL VELASQUEZ MD Dec 08, 2016 21:06
[2016-12-09 06:36] VITALS: BP 119/64
[2016-12-09] MEDS: PANTOPRAZOLE 40 MG TABLET. PO SCH (09:03)
[2016-12-09] MEDS: POLYETHYLENE GLYCOL 3350 17 GM PACKET. PO SCH ×2 (09:03→20:27)
[2016-12-09] MEDS: CALCIUM CARB/VIT D3 500/200 TABLET PO SCH (09:04)
[2016-12-09] MEDS: FERROUS SULFATE 325 MG TABLET PO SCH ×2 (09:04→20:27)
[2016-12-09] MEDS: MEMANTINE 10 MG TABLET. PO SCH ×2 (09:04→20:27)
[2016-12-09] MEDS: MAGNESIUM OXIDE 400 MG TABLET PO SCH ×3 (09:04→20:26)
[2016-12-09] MEDS: ZIPRASIDONE 40 MG CAPSULE. PO SCH ×2 (09:04→16:57)
[2016-12-09] MEDS: OXYBUTYNIN CHLORIDE 5 MG TABLET PO SCH (09:04)
[2016-12-09] MEDS: ACETAMINOPHEN 650 MG TABLET.ER PO SCH (09:05)
[2016-12-09] MEDS: METFORMIN 500 MG TABLET. PO SCH ×2 (09:05→16:57)
[2016-12-09] MEDS: CYCLOSPORINE 0.05% OPTH DROPERETTE. OU SCH ×2 (09:05→20:28)
[2016-12-09] MEDS: BENZTROPINE MESYLATE 1 MG TABLET PO SCH ×2 (09:05→20:27)
[2016-12-09] MEDS: rOPINIRole 0.5 MG TABLET. PO SCH ×3 (09:05→20:25)
[2016-12-09] MEDS: LISINOPRIL 5 MG TABLET. PO SCH (09:06)
[2016-12-09] MEDS: POLYVINYL ALCOHOL 1.4% OPHTH SOLUTION 15ML BOTTLE. OU SCH (09:07)
[2016-12-09] MEDS: METOPROLOL TART IMMED RELEASE 25 MG TABLET PO SCH ×2 (09:07→20:26)
[2016-12-09 16:09] VITALS: BP 125/62
[2016-12-09] MEDS: DIVALPROEX ER 500 MG TAB.ER.24H PO SCH (20:25)
[2016-12-09] MEDS: ATORVASTATIN CALCIUM 20 MG TABLET PO SCH (20:25)
[2016-12-09] MEDS: traZODone 100 MG TABLET. PO SCH (20:27)
[2016-12-09] MEDS: CITALOPRAM 20 MG TABLET. PO SCH (20:27)
--- NOTE | 2016-12-09 21:04 | PDOC ---
Exam Adrian Demential Exam: Adrian Note: Please also refer to the separate dictated note~for this date of service dictated separately.~Patient seen individually. Discussed the patient with Nursing staff reviewed the chart.~Reviewed interim history and current functioning. Reviewed vital signs,~Labs/ Radiology~and current medications noted below. Continue current treatment with the changes noted in the dictated addendum note Assessment: Vital Signs: Vital Signs Date Time Temp Pulse Resp B/P Pulse Ox O2 Delivery O2 Flow Rate FiO2 12/09/16 20:26 85 125/62 12/09/16 16:09 97.8 20 94 12/06/16 23:17 Room Air I&O Intake and Output 12/09/16 07:00 Intake Total 1020 ml Balance 1020 ml Intake Oral 1020 ml # Voids 3 Labs: Laboratory Tests Test 12/09/16 07:38 12/09/16 11:13 12/09/16 16:22 12/09/16 19:10 Glucose (Fingerstick) 110mg/dL (70-99) H 126mg/dL (70-99) H 77mg/dL (70-99) 91mg/dL (70-99) Current Medications: Meds: Current Medications Acetaminophen (Tylenol) 650 mg PRN Q6HRS PRN PO PAIN / TEMP; Start 12/06/16 at 20:15; Status Cancel Multi-Ingredient Ointment (Analgesic [place]) 1 dain PRN QID PRN TP MUSCLE PAIN; Start 12/06/16 at 20:15 Al Hydroxide/Mg Hydroxide (Mylanta Plus Xs) 15 ml PRN AFTMEALHC PRN PO DYSPEPSIA; Start 12/06/16 at 20:15 Magnesium Hydroxide (Milk Of Magnesia) 2,400 mg PRN QHS PRN PO CONSTIPATION; Start 12/06/16 at 20:15 Citalopram Hydrobromide (Celexa) 20 mg HS PO Last administered on 12/09/16 20: 27; Start 12/06/16 at 21:00 Memantine (Namenda) 10 mg BID PO Last administered on 12/09/16 20:27; Start at 21:00 Oxcarbazepine (Trileptal) 300 mg BID PO Last administered on 12/09/16 20:26; Start 12/06/16 at 21:00 Ziprasidone (Geodon) 40 mg BIDWMEALS PO Last administered on 12/09/16 16:57; Start 12/06/16 at 21:00 Lamotrigine (LaMICtal) 200 mg QHS PO ; Start 12/06/16 at 21:30; Status Cancel Non-Formulary Medication 1 ea QHS PO ; Start 12/07/16 at 21:00; Status Cancel Lamotrigine (LaMICtal) 100 mg BID PO Last administered on 12/07/16 08:37; Start 12/06/16 at 22:15; Stop 12/07/16 at 18:21; Status DC Atorvastatin Calcium (Lipitor) 80 mg QHS PO Last administered on 12/09/16 20: 25; Start 12/06/16 at 22:00 Metformin HCl (Glucophage) 1,000 mg BIDWMEALS PO Last administered on 16:57; Start 12/07/16 at 08:00 Hydroxyzine HCl (Atarax) 50 mg PRN Q2HR PRN PO PSYCHOSIS Last administered on 01:55; Start 12/06/16 at 22:00 Olanzapine (Zyprexa Zydis) 5 mg PRN Q2HR PRN PO PSYCHOSIS Last administered on 12/07/16 01:55; Start 12/06/16 at 22:00 Acetaminophen (Tylenol) 650 mg PRN Q6HRS PRN PO fever/pain; Start 12/07/16 at 06:00 Acetaminophen (Tylenol Arthritis) 650 mg DAILY PO Last administered on 09:05; Start 12/07/16 at 09:00 Cyclosporine (Restasis) 1 drop BID OU Last administered on 12/09/16 20:28; Start 12/07/16 at 09:00 Ferrous Sulfate (Feosol) 325 mg BID PO Last administered on 12/09/16 20:27; Start 12/07/16 at 09:00 Lisinopril (Prinivil) 5 mg DAILY PO Last administered on 12/09/16 09:06; Start 12/07/16 at 09:00 Magnesium Oxide (Magnesium Oxide) 400 mg TID PO Last administered on 12/09/16 20:26; Start 12/07/16 at 09:00 Metoprolol Tartrate (Lopressor) 12.5 mg BID PO Last administered on 12/09/16 20:26; Start 12/07/16 at 09:00 Oxybutynin Chloride (Ditropan) 2.5 mg DAILY PO Last administered on 12/09/16 09:04; Start 12/07/16 at 09:00 Polyethylene Glycol (miraLAX) 17 gm BID PO Last administered on 12/09/16 20:27 ; Start 12/07/16 at 09:00 Ropinirole HCl (Requip) 0.5 mg TID PO Last administered on 12/09/16 20:25; Start 12/07/16 at 09:00 Benztropine Mesylate (Cogentin) 2 mg BID PO Last administered on 12/09/16 20: 27; Start 12/07/16 at 09:00 Calcium/Vitamin D (Oscal D 500mg/ 200uts) 1 tab DAILY PO Last administered on 09:04; Start 12/07/16 at 09:00 Artificial Tears (Artificial Tears) 1 drop DAILY OU Last administered on 09:07; Start 12/07/16 at 09:00 Non-Formulary Medication 1 each PRN QHS PRN OU DRY EYE; Start 12/07/16 at 06:00 ; Status UNV Docusate Sodium (Colace) 200 mg PRN QHS PRN PO CONSTIPATION; Start 12/07/16 at 06:15 Non-Formulary Medication 2,400 mg PRN DAILY PRN PO CONSTIPATION; Start at 06:00; Status UNV Pantoprazole Sodium (Protonix) 40 mg DAILYAC PO Last administered on 12/09/16 09:03; Start 12/07/16 at 07:30 Trazodone HCl (Desyrel) 100 mg 1X ONCE PO Last administered on 12/07/16 06:18 ; Start 12/07/16 at 06:30; Stop 12/07/16 at 06:31; Status DC Trazodone HCl (Desyrel) 100 mg PRN QHS PRN PO INSOMNIA; Start 12/07/16 at 06:00 Divalproex Sodium (Depakote Er) 500 mg QHS PO Last administered on 3/24/17at 20 :25; Start 12/07/16 at 21:00 Trazodone HCl (Desyrel) 100 mg QHS PO Last administered on 12/09/16t 20:27; Start 12/07/16 at 21:00 Active Scripts Active Reported Omeprazole 40 Mg Capsule.dr 40 Mg PO DAILY Artificial Tears (Dextran 70/Hypromellose) 1 Each Droperette 1 Each OU DAILY Artificial Tears (Dextran 70/Hypromellose) 1 Each Droperette 1 Each OU PRN QHS PRN Arthritis Pain (Acetaminophen) 650 Mg Tablet.er 650 Mg PO DAILY Metoprolol Succinate ( Xl ) (Metoprolol Succinate) 25 Mg Tab.er.24h 12.5 Mg PO BID Metformin Hcl 1,000 Mg Tablet 1,000 Mg PO BID Lisinopril 5 Mg Tablet 5 Mg PO DAILY Ferrous Sulfate 325 Mg Tablet 325 Mg PO BID Geodon (Ziprasidone Hcl) 40 Mg Capsule 40 Mg PO BID Give with food Oxcarbazepine 300 Mg Tablet 300 Mg PO BID Magnesium Oxide 400 Mg Tablet 400 Mg PO TID Namenda (Memantine Hcl) 10 Mg Tablet 10 Mg PO BID Lipitor (Atorvastatin Calcium) 80 Mg Tablet 80 Mg PO QHS Ropinirole Hcl 0.5 Mg Tablet 0.5 Mg PO TID Polyethylene Glycol 3350 17 Gm Powd.pack 17 Gm PO BID Oxybutynin Chloride 5 Mg Tablet 2.5 Mg PO DAILY Milk Of Magnesia (Magnesium Hydroxide) 2,400 Mg/10 Ml Oral.susp 2,400 Mg PO PRN DAILY PRN Lamotrigine 200 Mg Tab.er.24 200 Mg PO HS Docusate Sodium 100 Mg Tablet 200 Mg PO PRN HS PRN Restasis (Cyclosporine) 1 Each Droperette 1 Drop OU BID Citalopram Hbr (Citalopram Hydrobromide) 20 Mg Tablet 20 Mg PO HS Calcitrate + Vit D Caplet (Calcium Citrate/Vitamin D3) 1 Each Tablet 1 Tab PO DAILY Benztropine Mesylate 2 Mg Tablet 2 Mg PO BID Acetaminophen 500 Mg Tablet 650 Mg PO PRN Q6HRS PRN MAXIMUM DOSE OF ACETAMINIOPHEN IS 4,000 MG IN 24 HOURS FROM ALL SOURCES FOR ADULTS. LAST DOSE GIVEN: NOT GIVEN THIS ADMISSION NEXT DOSE DUE: DATE: TODAY TIME: IF NEEDED Diagnosis: Problems: (1) Anxiety disorder (2) Impulse control disorder (3) Psychosis, atypical (4) Schizoaffective disorder, chronic condition with acute exacerbation (5) Healthcare-associated pneumonia DONNELL VELASQUEZ MD Dec 09, 2016 21:04
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
--- NOTE | 2016-12-10 02:21 | PN ---
DATE: 12/08/2016 This is a late entry for 12/08/2016, covers elements not covered in my initial note. SUBJECTIVE: The patient was staffed at a treatment team meeting with the entire team. Reviewed the patient's history, diagnoses, appetite about 50%, sleeping about 7-1/4 hours. She has been aggressive, cursing, belligerent, hitting staff member, labile, and psychotic. REVIEW OF SYSTEMS: No CV, , pulmonary, eye, ENT system symptoms on review. Reliability poor. MENTAL STATUS EXAM: Oriented to herself and situation. Speech coherent, rapid, loud at times; abstraction fair, computation impaired, language function intact, attention span short, mood and affect remain somewhat grandiose, labile. LABORATORY DATA: Reviewed. IMPRESSION: Schizoaffective disorder, bipolar type, mixed with psychotic features. Rest diagnoses unchanged. PLAN: Continue Geodon, Namenda, Trileptal, Celexa, Atarax p.r.n., Zyprexa p.r.n., Depakote ER 500 at bedtime, trazodone 100 at bedtime, may repeat x 1. Follow labs level on the Depakote. Adjust to reach a therapeutic level. DONNELL VELASQUEZ MD DR: JUSTIN/pattie JOB#: [id number] / [id number]
[2016-12-10 06:20] VITALS: BP 150/73
[2016-12-10 06:26] LABS: BASO % 1 % (0-3); EOS # 0.1 x10^3/uL (0.0-0.7); EOS % 1 % (0-3); HEMATOCRIT 33.3 % (36.0-47.0); HEMOGLOBIN 10.8 g/dL (12.0-15.5); LYMPH # 2.2 x10^3/uL (1.0-4.8); LYMPH % 21 % (24-48); MEAN CORPUSCULAR HEMOGLOBIN 29 pg (25-35); MEAN CORPUSCULAR HGB CONC 33 g/dL (31-37); MEAN CORPUSCULAR VOLUME 89 fL (79-100); MONO # 0.9 x10^3/uL (0.0-1.1); MONO % 8 % (0-9); NEUT # 7.3 x10^3uL (1.8-7.7); NEUT % 69 % (31-73); PLATELET COUNT 498 x10^3/uL (140-400); RED BLOOD COUNT 3.76 x10^6/uL (3.50-5.40); RED CELL DISTRIBUTION WIDTH 14.9 % (11.5-14.5); WHITE BLOOD COUNT 10.5 x10^3/uL (4.0-11.0)
[2016-12-10 06:47] LABS: ALBUMIN 3.1 g/dL (3.4-5.0); ALBUMIN/GLOBULIN RATIO 0.7 (1.0-1.7); CALCIUM 9.2 mg/dL (8.5-10.1); CREATININE 0.7 mg/dL (0.6-1.0); GFR 80.9; POTASSIUM 4.1 mmol/L (3.5-5.1); TOTAL BILIRUBIN 0.2 mg/dL (0.2-1.0); TOTAL PROTEIN 7.7 g/dL (6.4-8.2)
[2016-12-10] MEDS: ZIPRASIDONE 40 MG CAPSULE. PO SCH ×2 (08:28→16:50)
[2016-12-10] MEDS: METFORMIN 500 MG TABLET. PO SCH ×2 (08:28→16:50)
[2016-12-10] MEDS: FERROUS SULFATE 325 MG TABLET PO SCH ×2 (08:28→20:59)
[2016-12-10] MEDS: ACETAMINOPHEN 650 MG TABLET.ER PO SCH (08:28)
[2016-12-10] MEDS: MAGNESIUM OXIDE 400 MG TABLET PO SCH ×3 (08:28→21:00)
[2016-12-10] MEDS: PANTOPRAZOLE 40 MG TABLET. PO SCH (08:28)
[2016-12-10] MEDS: LISINOPRIL 5 MG TABLET. PO SCH (08:28)
[2016-12-10] MEDS: POLYETHYLENE GLYCOL 3350 17 GM PACKET. PO SCH ×2 (08:28→21:01)
[2016-12-10] MEDS: BENZTROPINE MESYLATE 1 MG TABLET PO SCH ×2 (08:28→20:59)
[2016-12-10] MEDS: CALCIUM CARB/VIT D3 500/200 TABLET PO SCH (08:29)
[2016-12-10] MEDS: MEMANTINE 10 MG TABLET. PO SCH ×2 (08:29→21:00)
[2016-12-10] MEDS: METOPROLOL TART IMMED RELEASE 25 MG TABLET PO SCH ×2 (08:31→21:00)
[2016-12-10] MEDS: rOPINIRole 0.5 MG TABLET. PO SCH ×3 (08:31→21:01)
[2016-12-10] MEDS: OXYBUTYNIN CHLORIDE 5 MG TABLET PO SCH (08:32)
[2016-12-10] MEDS: POLYVINYL ALCOHOL 1.4% OPHTH SOLUTION 15ML BOTTLE. OU SCH (08:33)
[2016-12-10] MEDS: CYCLOSPORINE 0.05% OPTH DROPERETTE. OU SCH ×2 (08:33→20:59)
[2016-12-10 16:37] VITALS: BP 133/70
[2016-12-10] MEDS: ATORVASTATIN CALCIUM 20 MG TABLET PO SCH (20:59)
[2016-12-10] MEDS: DIVALPROEX ER 500 MG TAB.ER.24H PO SCH (20:59)
[2016-12-10] MEDS: traZODone 100 MG TABLET. PO SCH (21:00)
[2016-12-10] MEDS: CITALOPRAM 20 MG TABLET. PO SCH (21:00)
--- NOTE | 2016-12-10 22:45 | PDOC ---
Exam Adrian Demential Exam: Adrian Note: Please also refer to the separate dictated note~for this date of service dictated separately.~Patient seen individually. Discussed the patient with Nursing staff reviewed the chart.~Reviewed interim history and current functioning. Reviewed vital signs,~Labs/ Radiology~and current medications noted below. Continue current treatment with the changes noted in the dictated addendum note Assessment: Vital Signs: Vital Signs Date Time Temp Pulse Resp B/P Pulse Ox O2 Delivery O2 Flow Rate FiO2 12/10/16 21:00 81 133/70 12/10/16 16:37 97.8 20 92 12/06/16 23:17 Room Air I&O Intake and Output 12/10/16 07:00 Intake Total 680 ml Balance 680 ml Intake Oral 680 ml # Voids 2 Labs: Laboratory Tests Test 12/10/16 06:05 12/10/16 07:51 12/10/16 11:45 12/10/16 16:33 White Blood Count 10.5x10^3/uL (4.0-11.0) Red Blood Count 3.76x10^6/uL (3.50-5.40) Hemoglobin 10.8g/dL (12.0-15.5) L Hematocrit 33.3% (36.0-47.0) L Mean Corpuscular Volume 89fL (79-100) Mean Corpuscular Hemoglobin 29pg (25-35) Mean Corpuscular Hemoglobin Concent 33g/dL (31-37) Red Cell Distribution Width 14.9% (11.5-14.5) H Platelet Count 498x10^3/uL (140-400) H Neutrophils (%) (Auto) 69% (31-73) Lymphocytes (%) (Auto) 21% (24-48) L Monocytes (%) (Auto) 8% (0-9) Eosinophils (%) (Auto) 1% (0-3) Basophils (%) (Auto) 1% (0-3) Neutrophils # (Auto) 7.3x10^3uL (1.8-7.7) Lymphocytes # (Auto) 2.2x10^3/uL (1.0-4.8) Monocytes # (Auto) 0.9x10^3/uL (0.0-1.1) Eosinophils # (Auto) 0.1x10^3/uL (0.0-0.7) Basophils # (Auto) 0.0x10^3/uL (0.0-0.2) Sodium Level 141mmol/L (136-145) Potassium Level 4.1mmol/L (3.5-5.1) Chloride Level 101mmol/L (98-107) Carbon Dioxide Level 32mmol/L (21-32) Anion Gap 8 (6-14) Blood Urea Nitrogen 25mg/dL (7-20) H Creatinine 0.7mg/dL (0.6-1.0) Estimated GFR (Cockcroft-Gault) 80.9 BUN/Creatinine Ratio 36 (6-20) H Glucose Level 99mg/dL (70-99) Calcium Level 9.2mg/dL (8.5-10.1) Total Bilirubin 0.2mg/dL (0.2-1.0) Aspartate Amino Transferase (AST) 15U/L (15-37) Alanine Aminotransferase (ALT) 19U/L (14-59) Alkaline Phosphatase 156U/L (46-116) H Total Protein 7.7g/dL (6.4-8.2) Albumin 3.1g/dL (3.4-5.0) L Albumin/Globulin Ratio 0.7 (1.0-1.7) L Glucose (Fingerstick) 79mg/dL (70-99) 104mg/dL (70-99) H 73mg/dL (70-99) Test 12/10/16 19:11 Glucose (Fingerstick) 77mg/dL (70-99) Current Medications: Meds: Current Medications Acetaminophen (Tylenol) 650 mg PRN Q6HRS PRN PO PAIN / TEMP; Start 12/06/16 at 20:15; Status Cancel Multi-Ingredient Ointment (Analgesic [place]) 1 dain PRN QID PRN TP MUSCLE PAIN; Start 12/06/16 at 20:15 Al Hydroxide/Mg Hydroxide (Mylanta Plus Xs) 15 ml PRN AFTMEALHC PRN PO DYSPEPSIA; Start 12/06/16 at 20:15 Magnesium Hydroxide (Milk Of Magnesia) 2,400 mg PRN QHS PRN PO CONSTIPATION; Start 12/06/16 at 20:15 Citalopram Hydrobromide (Celexa) 20 mg HS PO Last administered on 12/10/16 21: 00; Start 12/06/16 at 21:00 Memantine (Namenda) 10 mg BID PO Last administered on 12/10/16 21:00; Start at 21:00 Oxcarbazepine (Trileptal) 300 mg BID PO Last administered on 12/10/16 21:00; Start 12/06/16 at 21:00 Ziprasidone (Geodon) 40 mg BIDWMEALS PO Last administered on 12/10/16 16:50; Start 12/06/16 at 21:00 Lamotrigine (LaMICtal) 200 mg QHS PO ; Start 12/06/16 at 21:30; Status Cancel Non-Formulary Medication 1 ea QHS PO ; Start 12/07/16 at 21:00; Status Cancel Lamotrigine (LaMICtal) 100 mg BID PO Last administered on 12/07/16 08:37; Start 12/06/16 at 22:15; Stop 12/07/16 at 18:21; Status DC Atorvastatin Calcium (Lipitor) 80 mg QHS PO Last administered on 12/10/16 20: 59; Start 12/06/16 at 22:00 Metformin HCl (Glucophage) 1,000 mg BIDWMEALS PO Last administered on 16:50; Start 12/07/16 at 08:00 Hydroxyzine HCl (Atarax) 50 mg PRN Q2HR PRN PO PSYCHOSIS Last administered on 01:55; Start 12/06/16 at 22:00 Olanzapine (Zyprexa Zydis) 5 mg PRN Q2HR PRN PO PSYCHOSIS Last administered on 12/07/16 01:55; Start 12/06/16 at 22:00 Acetaminophen (Tylenol) 650 mg PRN Q6HRS PRN PO fever/pain; Start 12/07/16 at 06:00 Acetaminophen (Tylenol Arthritis) 650 mg DAILY PO Last administered on 08:28; Start 12/07/16 at 09:00 Cyclosporine (Restasis) 1 drop BID OU Last administered on 12/10/16 20:59; Start 12/07/16 at 09:00 Ferrous Sulfate (Feosol) 325 mg BID PO Last administered on 12/10/16 20:59; Start 12/07/16 at 09:00 Lisinopril (Prinivil) 5 mg DAILY PO Last administered on 12/10/16 08:28; Start 12/07/16 at 09:00 Magnesium Oxide (Magnesium Oxide) 400 mg TID PO Last administered on 12/10/16 21:00; Start 12/07/16 at 09:00 Metoprolol Tartrate (Lopressor) 12.5 mg BID PO Last administered on 12/10/16 21:00; Start 12/07/16 at 09:00 Oxybutynin Chloride (Ditropan) 2.5 mg DAILY PO Last administered on 12/10/16 08:32; Start 12/07/16 at 09:00 Polyethylene Glycol (miraLAX) 17 gm BID PO Last administered on 12/10/16 21:01 ; Start 12/07/16 at 09:00 Ropinirole HCl (Requip) 0.5 mg TID PO Last administered on 12/10/16 21:01; Start 12/07/16 at 09:00 Benztropine Mesylate (Cogentin) 2 mg BID PO Last administered on 12/10/16 20: 59; Start 12/07/16 at 09:00 Calcium/Vitamin D (Oscal D 500mg/ 200uts) 1 tab DAILY PO Last administered on 08:29; Start 12/07/16 at 09:00 Artificial Tears (Artificial Tears) 1 drop DAILY OU Last administered on 08:33; Start 12/07/16 at 09:00 Non-Formulary Medication 1 each PRN QHS PRN OU DRY EYE; Start 12/07/16 at 06:00 ; Status UNV Docusate Sodium (Colace) 200 mg PRN QHS PRN PO CONSTIPATION; Start 12/07/16 at 06:15 Non-Formulary Medication 2,400 mg PRN DAILY PRN PO CONSTIPATION; Start at 06:00; Status UNV Pantoprazole Sodium (Protonix) 40 mg DAILYAC PO Last administered on 12/10/16 08:28; Start 12/07/16 at 07:30 Trazodone HCl (Desyrel) 100 mg 1X ONCE PO Last administered on 12/07/16 06:18 ; Start 12/07/16 at 06:30; Stop 12/07/16 at 06:31; Status DC Trazodone HCl (Desyrel) 100 mg PRN QHS PRN PO INSOMNIA; Start 12/07/16 at 06:00 Divalproex Sodium (Depakote Er) 500 mg QHS PO Last administered on 12/10/16 20 :59; Start 12/07/16 at 21:00 Trazodone HCl (Desyrel) 100 mg QHS PO Last administered on 12/10/16 21:00; Start 12/07/16 at 21:00 Active Scripts Active Reported Omeprazole 40 Mg Capsule.dr 40 Mg PO DAILY Artificial Tears (Dextran 70/Hypromellose) 1 Each Droperette 1 Each OU DAILY Artificial Tears (Dextran 70/Hypromellose) 1 Each Droperette 1 Each OU PRN QHS PRN Arthritis Pain (Acetaminophen) 650 Mg Tablet.er 650 Mg PO DAILY Metoprolol Succinate ( Xl ) (Metoprolol Succinate) 25 Mg Tab.er.24h 12.5 Mg PO BID Metformin Hcl 1,000 Mg Tablet 1,000 Mg PO BID Lisinopril 5 Mg Tablet 5 Mg PO DAILY Ferrous Sulfate 325 Mg Tablet 325 Mg PO BID Geodon (Ziprasidone Hcl) 40 Mg Capsule 40 Mg PO BID Give with food Oxcarbazepine 300 Mg Tablet 300 Mg PO BID Magnesium Oxide 400 Mg Tablet 400 Mg PO TID Namenda (Memantine Hcl) 10 Mg Tablet 10 Mg PO BID Lipitor (Atorvastatin Calcium) 80 Mg Tablet 80 Mg PO QHS Ropinirole Hcl 0.5 Mg Tablet 0.5 Mg PO TID Polyethylene Glycol 3350 17 Gm Powd.pack 17 Gm PO BID Oxybutynin Chloride 5 Mg Tablet 2.5 Mg PO DAILY Milk Of Magnesia (Magnesium Hydroxide) 2,400 Mg/10 Ml Oral.susp 2,400 Mg PO PRN DAILY PRN Lamotrigine 200 Mg Tab.er.24 200 Mg PO HS Docusate Sodium 100 Mg Tablet 200 Mg PO PRN HS PRN Restasis (Cyclosporine) 1 Each Droperette 1 Drop OU BID Citalopram Hbr (Citalopram Hydrobromide) 20 Mg Tablet 20 Mg PO HS Calcitrate + Vit D Caplet (Calcium Citrate/Vitamin D3) 1 Each Tablet 1 Tab PO DAILY Benztropine Mesylate 2 Mg Tablet 2 Mg PO BID Acetaminophen 500 Mg Tablet 650 Mg PO PRN Q6HRS PRN MAXIMUM DOSE OF ACETAMINIOPHEN IS 4,000 MG IN 24 HOURS FROM ALL SOURCES FOR ADULTS. LAST DOSE GIVEN: NOT GIVEN THIS ADMISSION NEXT DOSE DUE: DATE: TODAY TIME: IF NEEDED Diagnosis: Problems: (1) Anxiety disorder (2) Impulse control disorder (3) Psychosis, atypical (4) Schizoaffective disorder, chronic condition with acute exacerbation (5) Healthcare-associated pneumonia DONNELL VELASQUEZ MD Dec 10, 2016 22:45
[2016-12-11 06:13] VITALS: BP 122/71
[2016-12-11] MEDS: POLYETHYLENE GLYCOL 3350 17 GM PACKET. PO SCH ×2 (08:01→20:49)
[2016-12-11] MEDS: MAGNESIUM OXIDE 400 MG TABLET PO SCH ×3 (08:01→20:48)
[2016-12-11] MEDS: LISINOPRIL 5 MG TABLET. PO SCH (08:01)
[2016-12-11] MEDS: ZIPRASIDONE 40 MG CAPSULE. PO SCH ×2 (08:02→16:51)
[2016-12-11] MEDS: MEMANTINE 10 MG TABLET. PO SCH ×2 (08:02→20:48)
[2016-12-11] MEDS: PANTOPRAZOLE 40 MG TABLET. PO SCH (08:02)
[2016-12-11] MEDS: rOPINIRole 0.5 MG TABLET. PO SCH ×3 (08:02→20:52)
[2016-12-11] MEDS: FERROUS SULFATE 325 MG TABLET PO SCH ×2 (08:02→20:48)
[2016-12-11] MEDS: METFORMIN 500 MG TABLET. PO SCH ×2 (08:02→16:51)
[2016-12-11] MEDS: OXYBUTYNIN CHLORIDE 5 MG TABLET PO SCH (08:02)
[2016-12-11] MEDS: ACETAMINOPHEN 650 MG TABLET.ER PO SCH (08:02)
[2016-12-11] MEDS: METOPROLOL TART IMMED RELEASE 25 MG TABLET PO SCH ×2 (08:04→20:53)
[2016-12-11] MEDS: CALCIUM CARB/VIT D3 500/200 TABLET PO SCH (08:04)
[2016-12-11] MEDS: POLYVINYL ALCOHOL 1.4% OPHTH SOLUTION 15ML BOTTLE. OU SCH (08:04)
[2016-12-11] MEDS: CYCLOSPORINE 0.05% OPTH DROPERETTE. OU SCH ×2 (08:04→20:48)
[2016-12-11] MEDS: BENZTROPINE MESYLATE 1 MG TABLET PO SCH ×2 (08:04→20:48)
[2016-12-11 08:13] LABS: BASO # 0.1 x10^3/uL (0.0-0.2); BASO % 1 % (0-3); EOS % 0 % (0-3); HEMATOCRIT 30.6 % (36.0-47.0); HEMOGLOBIN 10.2 g/dL (12.0-15.5); LYMPH # 1.7 x10^3/uL (1.0-4.8); LYMPH % 15 % (24-48); MEAN CORPUSCULAR HEMOGLOBIN 29 pg (25-35); MEAN CORPUSCULAR HGB CONC 33 g/dL (31-37); MEAN CORPUSCULAR VOLUME 88 fL (79-100); MONO # 0.7 x10^3/uL (0.0-1.1); MONO % 6 % (0-9); NEUT # 9.1 x10^3uL (1.8-7.7); NEUT % 78 % (31-73); PLATELET COUNT 455 x10^3/uL (140-400); RED BLOOD COUNT 3.49 x10^6/uL (3.50-5.40); RED CELL DISTRIBUTION WIDTH 15.2 % (11.5-14.5); WHITE BLOOD COUNT 11.6 x10^3/uL (4.0-11.0)
[2016-12-11 08:20] LABS: ALBUMIN/GLOBULIN RATIO 0.7 (1.0-1.7); ALK PHOS 154 U/L (46-116); ALT (SGPT) 16 U/L (14-59); ANION GAP 8 (6-14); AST (SGOT) 14 U/L (15-37); BLOOD UREA NITROGEN 26 mg/dL (7-20); BUN/CREATININE RATIO 37 (6-20); CALCIUM 9.3 mg/dL (8.5-10.1); CARBON DIOXIDE 31 mmol/L (21-32); CHLORIDE 102 mmol/L (98-107); CREATININE 0.7 mg/dL (0.6-1.0); GFR 80.9; GLUCOSE 78 mg/dL (70-99); POTASSIUM 4.9 mmol/L (3.5-5.1); SODIUM 141 mmol/L (136-145); TOTAL BILIRUBIN 0.3 mg/dL (0.2-1.0); TOTAL PROTEIN 7.5 g/dL (6.4-8.2)
[2016-12-11 08:25] LABS: VAL ACID 42 mcg/mL (50-100)
[2016-12-11 16:01] VITALS: BP 117/59
[2016-12-11] MEDS: ATORVASTATIN CALCIUM 20 MG TABLET PO SCH (20:47)
[2016-12-11] MEDS: CITALOPRAM 20 MG TABLET. PO SCH (20:48)
[2016-12-11] MEDS: DIVALPROEX ER 500 MG TAB.ER.24H PO SCH (20:48)
[2016-12-11] MEDS: traZODone 100 MG TABLET. PO SCH (20:52)
--- NOTE | 2016-12-11 21:12 | PDOC ---
Exam Adrian Demential Exam: Adrian Note: Please also refer to the separate dictated note~for this date of service dictated separately.~Patient seen individually. Discussed the patient with Nursing staff reviewed the chart.~Reviewed interim history and current functioning. Reviewed vital signs,~Labs/ Radiology~and current medications noted below. Continue current treatment with the changes noted in the dictated addendum note Assessment: Vital Signs: Vital Signs Date Time Temp Pulse Resp B/P Pulse Ox O2 Delivery O2 Flow Rate FiO2 12/11/16 20:53 85 117/59 12/11/16 16:01 98.2 18 96 12/06/16 23:17 Room Air I&O Intake and Output 12/11/16 07:00 Intake Total 840 ml Balance 840 ml Intake Oral 840 ml Labs: Laboratory Tests Test 12/11/16 07:20 12/11/16 07:44 12/11/16 11:18 12/11/16 16:36 Glucose (Fingerstick) 71mg/dL (70-99) 83mg/dL (70-99) 74mg/dL (70-99) White Blood Count 11.6x10^3/uL (4.0-11.0) H Red Blood Count 3.49x10^6/uL (3.50-5.40) L Hemoglobin 10.2g/dL (12.0-15.5) L Hematocrit 30.6% (36.0-47.0) L Mean Corpuscular Volume 88fL (79-100) Mean Corpuscular Hemoglobin 29pg (25-35) Mean Corpuscular Hemoglobin Concent 33g/dL (31-37) Red Cell Distribution Width 15.2% (11.5-14.5) H Platelet Count 455x10^3/uL (140-400) H Neutrophils (%) (Auto) 78% (31-73) H Lymphocytes (%) (Auto) 15% (24-48) L Monocytes (%) (Auto) 6% (0-9) Eosinophils (%) (Auto) 0% (0-3) Basophils (%) (Auto) 1% (0-3) Neutrophils # (Auto) 9.1x10^3uL (1.8-7.7) H Lymphocytes # (Auto) 1.7x10^3/uL (1.0-4.8) Monocytes # (Auto) 0.7x10^3/uL (0.0-1.1) Eosinophils # (Auto) 0.0x10^3/uL (0.0-0.7) Basophils # (Auto) 0.1x10^3/uL (0.0-0.2) Sodium Level 141mmol/L (136-145) Potassium Level 4.9mmol/L (3.5-5.1) Chloride Level 102mmol/L (98-107) Carbon Dioxide Level 31mmol/L (21-32) Anion Gap 8 (6-14) Blood Urea Nitrogen 26mg/dL (7-20) H Creatinine 0.7mg/dL (0.6-1.0) Estimated GFR (Cockcroft-Gault) 80.9 BUN/Creatinine Ratio 37 (6-20) H Glucose Level 78mg/dL (70-99) Calcium Level 9.3mg/dL (8.5-10.1) Total Bilirubin 0.3mg/dL (0.2-1.0) Aspartate Amino Transferase (AST) 14U/L (15-37) L Alanine Aminotransferase (ALT) 16U/L (14-59) Alkaline Phosphatase 154U/L (46-116) H Total Protein 7.5g/dL (6.4-8.2) Albumin 3.0g/dL (3.4-5.0) L Albumin/Globulin Ratio 0.7 (1.0-1.7) L Valproic Acid Level 42mcg/mL (50-100) L Valproic Acid Last Dose Date 12/10/16 Valproic Acid Last Dose Time 2100 Test 12/11/16 19:12 Glucose (Fingerstick) 82mg/dL (70-99) Current Medications: Meds: Current Medications Acetaminophen (Tylenol) 650 mg PRN Q6HRS PRN PO PAIN / TEMP; Start 12/06/16 at 20:15; Status Cancel Multi-Ingredient Ointment (Analgesic [place]) 1 dain PRN QID PRN TP MUSCLE PAIN; Start 12/06/16 at 20:15 Al Hydroxide/Mg Hydroxide (Mylanta Plus Xs) 15 ml PRN AFTMEALHC PRN PO DYSPEPSIA; Start 12/06/16 at 20:15 Magnesium Hydroxide (Milk Of Magnesia) 2,400 mg PRN QHS PRN PO CONSTIPATION; Start 12/06/16 at 20:15 Citalopram Hydrobromide (Celexa) 20 mg HS PO Last administered on 12/11/16 20: 48; Start 12/06/16 at 21:00 Memantine (Namenda) 10 mg BID PO Last administered on 12/11/16 20:48; Start at 21:00 Oxcarbazepine (Trileptal) 300 mg BID PO Last administered on 12/11/16 20:48; Start 12/06/16 at 21:00 Ziprasidone (Geodon) 40 mg BIDWMEALS PO Last administered on 12/11/16 16:51; Start 12/06/16 at 21:00 Lamotrigine (LaMICtal) 200 mg QHS PO ; Start 12/06/16 at 21:30; Status Cancel Non-Formulary Medication 1 ea QHS PO ; Start 12/07/16 at 21:00; Status Cancel Lamotrigine (LaMICtal) 100 mg BID PO Last administered on 12/07/16 08:37; Start 12/06/16 at 22:15; Stop 12/07/16 at 18:21; Status DC Atorvastatin Calcium (Lipitor) 80 mg QHS PO Last administered on 12/11/16 20: 47; Start 12/06/16 at 22:00 Metformin HCl (Glucophage) 1,000 mg BIDWMEALS PO Last administered on 16:51; Start 12/07/16 at 08:00 Hydroxyzine HCl (Atarax) 50 mg PRN Q2HR PRN PO PSYCHOSIS Last administered on 01:55; Start 12/06/16 at 22:00 Olanzapine (Zyprexa Zydis) 5 mg PRN Q2HR PRN PO PSYCHOSIS Last administered on 12/07/16 01:55; Start 12/06/16 at 22:00 Acetaminophen (Tylenol) 650 mg PRN Q6HRS PRN PO fever/pain; Start 12/07/16 at 06:00 Acetaminophen (Tylenol Arthritis) 650 mg DAILY PO Last administered on 08:02; Start 12/07/16 at 09:00 Cyclosporine (Restasis) 1 drop BID OU Last administered on 12/11/16 20:48; Start 12/07/16 at 09:00 Ferrous Sulfate (Feosol) 325 mg BID PO Last administered on 12/11/16 20:48; Start 12/07/16 at 09:00 Lisinopril (Prinivil) 5 mg DAILY PO Last administered on 12/11/16 08:01; Start 12/07/16 at 09:00 Magnesium Oxide (Magnesium Oxide) 400 mg TID PO Last administered on 12/11/16 20:48; Start 12/07/16 at 09:00 Metoprolol Tartrate (Lopressor) 12.5 mg BID PO Last administered on 12/11/16 08:04; Start 12/07/16 at 09:00 Oxybutynin Chloride (Ditropan) 2.5 mg DAILY PO Last administered on 12/11/16 08:02; Start 12/07/16 at 09:00 Polyethylene Glycol (miraLAX) 17 gm BID PO Last administered on 12/11/16 20:49 ; Start 12/07/16 at 09:00 Ropinirole HCl (Requip) 0.5 mg TID PO Last administered on 12/11/16 20:52; Start 12/07/16 at 09:00 Benztropine Mesylate (Cogentin) 2 mg BID PO Last administered on 12/11/16 20: 48; Start 12/07/16 at 09:00 Calcium/Vitamin D (Oscal D 500mg/ 200uts) 1 tab DAILY PO Last administered on 08:04; Start 12/07/16 at 09:00 Artificial Tears (Artificial Tears) 1 drop DAILY OU Last administered on 08:04; Start 12/07/16 at 09:00 Non-Formulary Medication 1 each PRN QHS PRN OU DRY EYE; Start 12/07/16 at 06:00 ; Status UNV Docusate Sodium (Colace) 200 mg PRN QHS PRN PO CONSTIPATION; Start 12/07/16 at 06:15 Non-Formulary Medication 2,400 mg PRN DAILY PRN PO CONSTIPATION; Start at 06:00; Status UNV Pantoprazole Sodium (Protonix) 40 mg DAILYAC PO Last administered on 12/11/16 08:02; Start 12/07/16 at 07:30 Trazodone HCl (Desyrel) 100 mg 1X ONCE PO Last administered on 12/07/16 06:18 ; Start 12/07/16 at 06:30; Stop 12/07/16 at 06:31; Status DC Trazodone HCl (Desyrel) 100 mg PRN QHS PRN PO INSOMNIA; Start 12/07/16 at 06:00 Divalproex Sodium (Depakote Er) 500 mg QHS PO Last administered on 12/11/16 20 :48; Start 12/07/16 at 21:00 Trazodone HCl (Desyrel) 100 mg QHS PO Last administered on 12/11/16 20:52; Start 12/07/16 at 21:00 Active Scripts Active Reported Omeprazole 40 Mg Capsule.dr 40 Mg PO DAILY Artificial Tears (Dextran 70/Hypromellose) 1 Each Droperette 1 Each OU DAILY Artificial Tears (Dextran 70/Hypromellose) 1 Each Droperette 1 Each OU PRN QHS PRN Arthritis Pain (Acetaminophen) 650 Mg Tablet.er 650 Mg PO DAILY Metoprolol Succinate ( Xl ) (Metoprolol Succinate) 25 Mg Tab.er.24h 12.5 Mg PO BID Metformin Hcl 1,000 Mg Tablet 1,000 Mg PO BID Lisinopril 5 Mg Tablet 5 Mg PO DAILY Ferrous Sulfate 325 Mg Tablet 325 Mg PO BID Geodon (Ziprasidone Hcl) 40 Mg Capsule 40 Mg PO BID Give with food Oxcarbazepine 300 Mg Tablet 300 Mg PO BID Magnesium Oxide 400 Mg Tablet 400 Mg PO TID Namenda (Memantine Hcl) 10 Mg Tablet 10 Mg PO BID Lipitor (Atorvastatin Calcium) 80 Mg Tablet 80 Mg PO QHS Ropinirole Hcl 0.5 Mg Tablet 0.5 Mg PO TID Polyethylene Glycol 3350 17 Gm Powd.pack 17 Gm PO BID Oxybutynin Chloride 5 Mg Tablet 2.5 Mg PO DAILY Milk Of Magnesia (Magnesium Hydroxide) 2,400 Mg/10 Ml Oral.susp 2,400 Mg PO PRN DAILY PRN Lamotrigine 200 Mg Tab.er.24 200 Mg PO HS Docusate Sodium 100 Mg Tablet 200 Mg PO PRN HS PRN Restasis (Cyclosporine) 1 Each Droperette 1 Drop OU BID Citalopram Hbr (Citalopram Hydrobromide) 20 Mg Tablet 20 Mg PO HS Calcitrate + Vit D Caplet (Calcium Citrate/Vitamin D3) 1 Each Tablet 1 Tab PO DAILY Benztropine Mesylate 2 Mg Tablet 2 Mg PO BID Acetaminophen 500 Mg Tablet 650 Mg PO PRN Q6HRS PRN MAXIMUM DOSE OF ACETAMINIOPHEN IS 4,000 MG IN 24 HOURS FROM ALL SOURCES FOR ADULTS. LAST DOSE GIVEN: NOT GIVEN THIS ADMISSION NEXT DOSE DUE: DATE: TODAY TIME: IF NEEDED Diagnosis: Problems: (1) Anxiety disorder (2) Impulse control disorder (3) Psychosis, atypical (4) Schizoaffective disorder, chronic condition with acute exacerbation (5) Healthcare-associated pneumonia DONNELL VELASQUEZ MD Dec 11, 2016 21:12
--- NOTE | 2016-12-11 22:00 | PN ---
DATE: 12/10/2016 PSYCHIATRIC PROGRESS NOTE SUBJECTIVE: The patient was seen on rounds the evening of 12/10/2016. Per nursing report, the patient has been irritable at times found on the floor of the bathroom at 6:20 a.m. Hands were on her bottom it likes she had put herself on the floor. No injuries noted. Making somewhat bizarre statements "I could strip if you like." REVIEW OF SYSTEMS: Ambulation impaired. No CV, , pulmonary, eye system symptoms on review. MENTAL STATUS EXAM: Reasonably oriented. Speech coherent at times difficult to understand, abstraction fair, computation impaired, language function intact. Mood and affect still labile. LABORATORY DATA: Reviewed. IMPRESSION: Unchanged from initial note. PLAN: Continue current psychotropic. Check CBC, CMP, valproic acid level in morning of 12/11/2016. Adjust further as clinically indicated. MAN Gracia VELASQUEZ MD DR: JUSTIN/pattie JOB#: [id number] / [id number]
--- NOTE | 2016-12-11 22:06 | PN ---
DATE: 12/09/2016 PSYCHIATRIC PROGRESS NOTE This is a late entry for 12/09/2016, covers elements not covered in my initial note. SUBJECTIVE: The patient has been compliant, at times difficult to understand, oriented x 3, withdrawn. REVIEW OF SYSTEMS: No CV, , pulmonary, eye, ENT system symptoms on review. MENTAL STATUS EXAM: Oriented x 3. Speech coherent, abstraction fair, computation impaired, language function intact, attention span short. Mood and affect, intermittently anxious, labile, but less agitated, less psychotic. LABORATORY DATA: Reviewed. IMPRESSION: Schizoaffective disorder, bipolar type, mixed with psychotic features. PLAN: The patient talked at length about her past psychiatrist, Dr. Farley and was able to remember quite accurately different things about that time. Continue Geodon 40 mg b.i.d., Namenda 10 mg b.i.d., Trileptal 300 mg b.i.d., Celexa 20 mg a day, Atarax p.r.n., Zyprexa p.r.n., Depakote ER 500 mg at bedtime. Check labs level, adjust as indicated, trazodone 100 mg at bedtime, may repeat x 1. MAN Gracia VELASQUEZ MD DR: JUSTIN/pattie JOB#: [id number] / [id number]
[2016-12-12 06:27] VITALS: BP 171/85
[2016-12-12] MEDS: POLYETHYLENE GLYCOL 3350 17 GM PACKET. PO SCH ×2 (08:52→20:18)
[2016-12-12] MEDS: LISINOPRIL 5 MG TABLET. PO SCH (08:53)
[2016-12-12] MEDS: ACETAMINOPHEN 650 MG TABLET.ER PO SCH (08:53)
[2016-12-12] MEDS: PANTOPRAZOLE 40 MG TABLET. PO SCH (08:53)
[2016-12-12] MEDS: MEMANTINE 10 MG TABLET. PO SCH ×2 (08:53→20:17)
[2016-12-12] MEDS: METFORMIN 500 MG TABLET. PO SCH ×2 (08:54→17:29)
[2016-12-12] MEDS: OXYBUTYNIN CHLORIDE 5 MG TABLET PO SCH (08:54)
[2016-12-12] MEDS: FERROUS SULFATE 325 MG TABLET PO SCH ×2 (08:54→20:15)
[2016-12-12] MEDS: BENZTROPINE MESYLATE 1 MG TABLET PO SCH ×2 (08:54→20:17)
[2016-12-12] MEDS: CYCLOSPORINE 0.05% OPTH DROPERETTE. OU SCH ×2 (08:54→20:20)
[2016-12-12] MEDS: rOPINIRole 0.5 MG TABLET. PO SCH ×3 (08:54→20:15)
[2016-12-12] MEDS: MAGNESIUM OXIDE 400 MG TABLET PO SCH ×3 (08:54→20:17)
[2016-12-12] MEDS: CALCIUM CARB/VIT D3 500/200 TABLET PO SCH (08:54)
[2016-12-12] MEDS: METOPROLOL TART IMMED RELEASE 25 MG TABLET PO SCH ×2 (08:57→20:16)
[2016-12-12] MEDS: POLYVINYL ALCOHOL 1.4% OPHTH SOLUTION 15ML BOTTLE. OU SCH (08:57)
[2016-12-12 16:23] VITALS: BP 136/84
[2016-12-12] MEDS: traZODone 100 MG TABLET. PO SCH (20:15)
[2016-12-12] MEDS: ATORVASTATIN CALCIUM 20 MG TABLET PO SCH (20:15)
[2016-12-12] MEDS: DIVALPROEX ER 250 MG TAB.ER.24H. PO SCH (20:16)
[2016-12-12] MEDS: CITALOPRAM 20 MG TABLET. PO SCH (20:17)
[2016-12-12] MEDS: DIVALPROEX ER 500 MG TAB.ER.24H PO SCH (20:17)
[2016-12-12] MEDS: QUEtiapine 50 MG TABLET. PO SCH (20:47)
--- NOTE | 2016-12-12 21:06 | PDOC ---
Exam Adrian Demential Exam: Adrian Note: Please also refer to the separate dictated note~for this date of service dictated separately.~Patient seen individually. Discussed the patient with Nursing staff reviewed the chart.~Reviewed interim history and current functioning. Reviewed vital signs,~Labs/ Radiology~and current medications noted below. Continue current treatment with the changes noted in the dictated addendum note Assessment: Vital Signs: Vital Signs Date Time Temp Pulse Resp B/P Pulse Ox O2 Delivery O2 Flow Rate FiO2 12/12/16 20:16 80 136/84 12/12/16 16:23 98.4 18 97 12/06/16 23:17 Room Air I&O Intake and Output 12/12/16 07:00 Intake Total 840 ml Balance 840 ml Intake Oral 840 ml Labs: Laboratory Tests Test 12/12/16 07:22 12/12/16 11:29 12/12/16 16:27 12/12/16 19:19 Glucose (Fingerstick) 101mg/dL (70-99) H 102mg/dL (70-99) H 83mg/dL (70-99) 83mg/dL (70-99) Current Medications: Meds: Current Medications Acetaminophen (Tylenol) 650 mg PRN Q6HRS PRN PO PAIN / TEMP; Start 12/06/16 at 20:15; Status Cancel Multi-Ingredient Ointment (Analgesic [place]) 1 dain PRN QID PRN TP MUSCLE PAIN; Start 12/06/16 at 20:15 Al Hydroxide/Mg Hydroxide (Mylanta Plus Xs) 15 ml PRN AFTMEALHC PRN PO DYSPEPSIA; Start 12/06/16 at 20:15 Magnesium Hydroxide (Milk Of Magnesia) 2,400 mg PRN QHS PRN PO CONSTIPATION; Start 12/06/16 at 20:15 Citalopram Hydrobromide (Celexa) 20 mg HS PO Last administered on 12/12/16 20: 17; Start 12/06/16 at 21:00 Memantine (Namenda) 10 mg BID PO Last administered on 12/12/16 20:17; Start at 21:00 Oxcarbazepine (Trileptal) 300 mg BID PO Last administered on 12/12/16 20:17; Start 12/06/16 at 21:00 Ziprasidone (Geodon) 40 mg BIDWMEALS PO Last administered on 12/11/16 16:51; Start 12/06/16 at 21:00; Stop 12/12/16 at 05:19; Status DC Lamotrigine (LaMICtal) 200 mg QHS PO ; Start 12/06/16 at 21:30; Status Cancel Non-Formulary Medication 1 ea QHS PO ; Start 12/07/16 at 21:00; Status Cancel Lamotrigine (LaMICtal) 100 mg BID PO Last administered on 12/07/16 08:37; Start 12/06/16 at 22:15; Stop 12/07/16 at 18:21; Status DC Atorvastatin Calcium (Lipitor) 80 mg QHS PO Last administered on 12/12/16 20: 15; Start 12/06/16 at 22:00 Metformin HCl (Glucophage) 1,000 mg BIDWMEALS PO Last administered on 17:29; Start 12/07/16 at 08:00 Hydroxyzine HCl (Atarax) 50 mg PRN Q2HR PRN PO PSYCHOSIS Last administered on 01:55; Start 12/06/16 at 22:00 Olanzapine (Zyprexa Zydis) 5 mg PRN Q2HR PRN PO PSYCHOSIS Last administered on 12/07/16 01:55; Start 12/06/16 at 22:00 Acetaminophen (Tylenol) 650 mg PRN Q6HRS PRN PO fever/pain; Start 12/07/16 at 06:00 Acetaminophen (Tylenol Arthritis) 650 mg DAILY PO Last administered on 08:53; Start 12/07/16 at 09:00 Cyclosporine (Restasis) 1 drop BID OU Last administered on 12/12/16 20:20; Start 12/07/16 at 09:00 Ferrous Sulfate (Feosol) 325 mg BID PO Last administered on 12/12/16 20:15; Start 12/07/16 at 09:00 Lisinopril (Prinivil) 5 mg DAILY PO Last administered on 12/12/16 08:53; Start 12/07/16 at 09:00 Magnesium Oxide (Magnesium Oxide) 400 mg TID PO Last administered on 12/12/16 20:17; Start 12/07/16 at 09:00 Metoprolol Tartrate (Lopressor) 12.5 mg BID PO Last administered on 12/12/16 20:16; Start 12/07/16 at 09:00 Oxybutynin Chloride (Ditropan) 2.5 mg DAILY PO Last administered on 12/12/16 08:54; Start 12/07/16 at 09:00 Polyethylene Glycol (miraLAX) 17 gm BID PO Last administered on 12/12/16 20:18 ; Start 12/07/16 at 09:00 Ropinirole HCl (Requip) 0.5 mg TID PO Last administered on 12/12/16 20:15; Start 12/07/16 at 09:00 Benztropine Mesylate (Cogentin) 2 mg BID PO Last administered on 12/12/16 20: 17; Start 12/07/16 at 09:00 Calcium/Vitamin D (Oscal D 500mg/ 200uts) 1 tab DAILY PO Last administered on 08:54; Start 12/07/16 at 09:00 Artificial Tears (Artificial Tears) 1 drop DAILY OU Last administered on 08:57; Start 12/07/16 at 09:00 Non-Formulary Medication 1 each PRN QHS PRN OU DRY EYE; Start 12/07/16 at 06:00 ; Status UNV Docusate Sodium (Colace) 200 mg PRN QHS PRN PO CONSTIPATION; Start 12/07/16 at 06:15 Non-Formulary Medication 2,400 mg PRN DAILY PRN PO CONSTIPATION; Start at 06:00; Status UNV Pantoprazole Sodium (Protonix) 40 mg DAILYAC PO Last administered on 12/12/16 08:53; Start 12/07/16 at 07:30 Trazodone HCl (Desyrel) 100 mg 1X ONCE PO Last administered on 12/07/16 06:18 ; Start 12/07/16 at 06:30; Stop 12/07/16 at 06:31; Status DC Trazodone HCl (Desyrel) 100 mg PRN QHS PRN PO INSOMNIA; Start 12/07/16 at 06:00 Divalproex Sodium (Depakote Er) 500 mg QHS PO Last administered on 12/11/16 20 :48; Start 12/07/16 at 21:00; Stop 12/12/16 at 13:16; Status DC Trazodone HCl (Desyrel) 100 mg QHS PO Last administered on 12/12/16 20:15; Start 12/07/16 at 21:00 Divalproex Sodium (Depakote Er) 500 mg HS PO Last administered on 12/12/16 20: 17; Start 12/12/16 at 21:00 Divalproex Sodium (Depakote Er) 250 mg HS PO Last administered on 12/12/16 20: 16; Start 12/12/16 at 21:00 Quetiapine Fumarate (SEROquel) 50 mg HS PO Last administered on 12/12/16 20:47 ; Start 12/12/16 at 21:00 Active Scripts Active Reported Omeprazole 40 Mg Capsule.dr 40 Mg PO DAILY Artificial Tears (Dextran 70/Hypromellose) 1 Each Droperette 1 Each OU DAILY Artificial Tears (Dextran 70/Hypromellose) 1 Each Droperette 1 Each OU PRN QHS PRN Arthritis Pain (Acetaminophen) 650 Mg Tablet.er 650 Mg PO DAILY Metoprolol Succinate ( Xl ) (Metoprolol Succinate) 25 Mg Tab.er.24h 12.5 Mg PO BID Metformin Hcl 1,000 Mg Tablet 1,000 Mg PO BID Lisinopril 5 Mg Tablet 5 Mg PO DAILY Ferrous Sulfate 325 Mg Tablet 325 Mg PO BID Geodon (Ziprasidone Hcl) 40 Mg Capsule 40 Mg PO BID Give with food Oxcarbazepine 300 Mg Tablet 300 Mg PO BID Magnesium Oxide 400 Mg Tablet 400 Mg PO TID Namenda (Memantine Hcl) 10 Mg Tablet 10 Mg PO BID Lipitor (Atorvastatin Calcium) 80 Mg Tablet 80 Mg PO QHS Ropinirole Hcl 0.5 Mg Tablet 0.5 Mg PO TID Polyethylene Glycol 3350 17 Gm Powd.pack 17 Gm PO BID Oxybutynin Chloride 5 Mg Tablet 2.5 Mg PO DAILY Milk Of Magnesia (Magnesium Hydroxide) 2,400 Mg/10 Ml Oral.susp 2,400 Mg PO PRN DAILY PRN Lamotrigine 200 Mg Tab.er.24 200 Mg PO HS Docusate Sodium 100 Mg Tablet 200 Mg PO PRN HS PRN Restasis (Cyclosporine) 1 Each Droperette 1 Drop OU BID Citalopram Hbr (Citalopram Hydrobromide) 20 Mg Tablet 20 Mg PO HS Calcitrate + Vit D Caplet (Calcium Citrate/Vitamin D3) 1 Each Tablet 1 Tab PO DAILY Benztropine Mesylate 2 Mg Tablet 2 Mg PO BID Acetaminophen 500 Mg Tablet 650 Mg PO PRN Q6HRS PRN MAXIMUM DOSE OF ACETAMINIOPHEN IS 4,000 MG IN 24 HOURS FROM ALL SOURCES FOR ADULTS. LAST DOSE GIVEN: NOT GIVEN THIS ADMISSION NEXT DOSE DUE: DATE: TODAY TIME: IF NEEDED Diagnosis: Problems: (1) Anxiety disorder (2) Impulse control disorder (3) Psychosis, atypical (4) Schizoaffective disorder, chronic condition with acute exacerbation DONNELL VELASQUEZ MD Dec 12, 2016 21:06
--- NOTE | 2016-12-12 23:17 | PN ---
DATE: 12/11/2016 PSYCHIATRIC PROGRESS NOTE This is a late entry for 12/11/2016, covers elements not covered in my initial note. SUBJECTIVE: Overall per nursing report, the patient has been irritable, compliant with medications, at times sedated. REVIEW OF SYSTEMS: No CV, , eye, ENT or pulmonary system symptoms on review. She is paranoid, suspicious as I met with her, but not aggressive. MENTAL STATUS EXAM: Oriented to herself and situation. Speech coherent, has some latency. Abstraction fair, computation impaired, language function intact. Mood and affect remain somewhat labile. LABORATORY DATA: Reviewed. IMPRESSION: Schizoaffective disorder, bipolar type, mixed with psychotic features, in partial remission. Rest unchanged. PLAN: Continue current psychotropics, adjust further as clinically indicated. At the time of this dictation, I was called around 4 a.m. this morning. The patient was having cogwheeling and rigidity, questioned by nursing staff was whether Geodon could be contributing to it. We stopped the Geodon. She remains on Cogentin 2 mg twice a day. We will have a Neurology consult with Dr. Coronado and then make further adjustments as indicated from there. We will check labs level on the Depakote. Adjust the Depakote to reach a therapeutic level. MAN Gracia VELASQUEZ MD DR: JUSTIN/pattie JOB#: [id number] / [id number]
[2016-12-13 06:43] VITALS: BP 149/69
[2016-12-13] MEDS: FERROUS SULFATE 325 MG TABLET PO SCH ×2 (08:29→21:42)
[2016-12-13] MEDS: OXYBUTYNIN CHLORIDE 5 MG TABLET PO SCH (08:31)
[2016-12-13] MEDS: CYCLOSPORINE 0.05% OPTH DROPERETTE. OU SCH ×2 (08:32→21:41)
[2016-12-13] MEDS: BENZTROPINE MESYLATE 1 MG TABLET PO SCH ×2 (08:32→21:41)
[2016-12-13] MEDS: METOPROLOL TART IMMED RELEASE 25 MG TABLET PO SCH ×2 (08:33→21:43)
[2016-12-13] MEDS: rOPINIRole 0.5 MG TABLET. PO SCH ×3 (08:33→21:41)
[2016-12-13] MEDS: METFORMIN 500 MG TABLET. PO SCH ×2 (08:34→16:40)
[2016-12-13] MEDS: ACETAMINOPHEN 650 MG TABLET.ER PO SCH (08:34)
[2016-12-13] MEDS: CALCIUM CARB/VIT D3 500/200 TABLET PO SCH (08:35)
[2016-12-13] MEDS: LISINOPRIL 5 MG TABLET. PO SCH (08:35)
[2016-12-13] MEDS: POLYVINYL ALCOHOL 1.4% OPHTH SOLUTION 15ML BOTTLE. OU SCH (08:35)
[2016-12-13] MEDS: MEMANTINE 10 MG TABLET. PO SCH ×2 (08:35→21:42)
[2016-12-13] MEDS: POLYETHYLENE GLYCOL 3350 17 GM PACKET. PO SCH ×2 (08:35→21:43)
[2016-12-13] MEDS: PANTOPRAZOLE 40 MG TABLET. PO SCH (08:35)
[2016-12-13] MEDS: MAGNESIUM OXIDE 400 MG TABLET PO SCH ×3 (08:37→21:43)
[2016-12-13 16:03] VITALS: BP 136/77
--- NOTE | 2016-12-13 21:18 | PDOC ---
Exam Adrian Demential Exam: Adrian Note: Please also refer to the separate dictated note~for this date of service dictated separately.~Patient seen individually. Discussed the patient with Nursing staff reviewed the chart.~Reviewed interim history and current functioning. Reviewed vital signs,~Labs/ Radiology~and current medications noted below. Continue current treatment with the changes noted in the dictated addendum note Assessment: Vital Signs: Vital Signs Date Time Temp Pulse Resp B/P Pulse Ox O2 Delivery O2 Flow Rate FiO2 12/13/16 16:03 97.5 88 20 136/77 94 12/13/16 06:43 Room Air I&O Intake and Output 12/13/16 07:00 Intake Total 840 ml Balance 840 ml Intake Oral 840 ml Labs: Laboratory Tests Test 12/13/16 07:14 12/13/16 11:10 12/13/16 16:58 Glucose (Fingerstick) 81mg/dL (70-99) 80mg/dL (70-99) 87mg/dL (70-99) Current Medications: Meds: Current Medications Acetaminophen (Tylenol) 650 mg PRN Q6HRS PRN PO PAIN / TEMP; Start 12/06/16 at 20:15; Status Cancel Multi-Ingredient Ointment (Analgesic [place]) 1 dain PRN QID PRN TP MUSCLE PAIN; Start 12/06/16 at 20:15 Al Hydroxide/Mg Hydroxide (Mylanta Plus Xs) 15 ml PRN AFTMEALHC PRN PO DYSPEPSIA; Start 12/06/16 at 20:15 Magnesium Hydroxide (Milk Of Magnesia) 2,400 mg PRN QHS PRN PO CONSTIPATION; Start 12/06/16 at 20:15 Citalopram Hydrobromide (Celexa) 20 mg HS PO Last administered on 12/12/16 20: 17; Start 12/06/16 at 21:00 Memantine (Namenda) 10 mg BID PO Last administered on 12/13/16 08:35; Start at 21:00 Oxcarbazepine (Trileptal) 300 mg BID PO Last administered on 12/13/16 08:33; Start 12/06/16 at 21:00; Stop 12/13/16 at 18:38; Status DC Ziprasidone (Geodon) 40 mg BIDWMEALS PO Last administered on 12/11/16 16:51; Start 12/06/16 at 21:00; Stop 12/12/16 at 05:19; Status DC Lamotrigine (LaMICtal) 200 mg QHS PO ; Start 12/06/16 at 21:30; Status Cancel Non-Formulary Medication 1 ea QHS PO ; Start 12/07/16 at 21:00; Status Cancel Lamotrigine (LaMICtal) 100 mg BID PO Last administered on 12/07/16 08:37; Start 12/06/16 at 22:15; Stop 12/07/16 at 18:21; Status DC Atorvastatin Calcium (Lipitor) 80 mg QHS PO Last administered on 12/12/16 20: 15; Start 12/06/16 at 22:00 Metformin HCl (Glucophage) 1,000 mg BIDWMEALS PO Last administered on 16:40; Start 12/07/16 at 08:00 Hydroxyzine HCl (Atarax) 50 mg PRN Q2HR PRN PO PSYCHOSIS Last administered on 01:55; Start 12/06/16 at 22:00 Olanzapine (Zyprexa Zydis) 5 mg PRN Q2HR PRN PO PSYCHOSIS Last administered on 12/07/16 01:55; Start 12/06/16 at 22:00 Acetaminophen (Tylenol) 650 mg PRN Q6HRS PRN PO fever/pain; Start 12/07/16 at 06:00 Acetaminophen (Tylenol Arthritis) 650 mg DAILY PO Last administered on 08:34; Start 12/07/16 at 09:00 Cyclosporine (Restasis) 1 drop BID OU Last administered on 12/13/16 08:32; Start 12/07/16 at 09:00 Ferrous Sulfate (Feosol) 325 mg BID PO Last administered on 12/13/16 08:29; Start 12/07/16 at 09:00 Lisinopril (Prinivil) 5 mg DAILY PO Last administered on 12/13/16 08:35; Start 12/07/16 at 09:00 Magnesium Oxide (Magnesium Oxide) 400 mg TID PO Last administered on 12/13/16 14:11; Start 12/07/16 at 09:00 Metoprolol Tartrate (Lopressor) 12.5 mg BID PO Last administered on 12/13/16 08:33; Start 12/07/16 at 09:00 Oxybutynin Chloride (Ditropan) 2.5 mg DAILY PO Last administered on 12/13/16 08:31; Start 12/07/16 at 09:00 Polyethylene Glycol (miraLAX) 17 gm BID PO Last administered on 12/13/16 08:35 ; Start 12/07/16 at 09:00 Ropinirole HCl (Requip) 0.5 mg TID PO Last administered on 12/13/16 14:11; Start 12/07/16 at 09:00 Benztropine Mesylate (Cogentin) 2 mg BID PO Last administered on 12/13/16 08: 32; Start 12/07/16 at 09:00 Calcium/Vitamin D (Oscal D 500mg/ 200uts) 1 tab DAILY PO Last administered on 08:35; Start 12/07/16 at 09:00 Artificial Tears (Artificial Tears) 1 drop DAILY OU Last administered on 08:35; Start 12/07/16 at 09:00 Non-Formulary Medication 1 each PRN QHS PRN OU DRY EYE; Start 12/07/16 at 06:00 ; Status UNV Docusate Sodium (Colace) 200 mg PRN QHS PRN PO CONSTIPATION; Start 12/07/16 at 06:15 Non-Formulary Medication 2,400 mg PRN DAILY PRN PO CONSTIPATION; Start at 06:00; Status UNV Pantoprazole Sodium (Protonix) 40 mg DAILYAC PO Last administered on 12/13/16 08:35; Start 12/07/16 at 07:30 Trazodone HCl (Desyrel) 100 mg 1X ONCE PO Last administered on 12/07/16 06:18 ; Start 12/07/16 at 06:30; Stop 12/07/16 at 06:31; Status DC Trazodone HCl (Desyrel) 100 mg PRN QHS PRN PO INSOMNIA; Start 12/07/16 at 06:00 Divalproex Sodium (Depakote Er) 500 mg QHS PO Last administered on 12/11/16 20 :48; Start 12/07/16 at 21:00; Stop 12/12/16 at 13:16; Status DC Trazodone HCl (Desyrel) 100 mg QHS PO Last administered on 12/12/16 20:15; Start 12/07/16 at 21:00 Divalproex Sodium (Depakote Er) 500 mg HS PO Last administered on 12/12/16 20: 17; Start 12/12/16 at 21:00 Divalproex Sodium (Depakote Er) 250 mg HS PO Last administered on 12/12/16 20: 16; Start 12/12/16 at 21:00 Quetiapine Fumarate (SEROquel) 50 mg HS PO Last administered on 12/12/16 20:47 ; Start 12/12/16 at 21:00 Active Scripts Active Reported Omeprazole 40 Mg Capsule.dr 40 Mg PO DAILY Artificial Tears (Dextran 70/Hypromellose) 1 Each Droperette 1 Each OU DAILY Artificial Tears (Dextran 70/Hypromellose) 1 Each Droperette 1 Each OU PRN QHS PRN Arthritis Pain (Acetaminophen) 650 Mg Tablet.er 650 Mg PO DAILY Metoprolol Succinate ( Xl ) (Metoprolol Succinate) 25 Mg Tab.er.24h 12.5 Mg PO BID Metformin Hcl 1,000 Mg Tablet 1,000 Mg PO BID Lisinopril 5 Mg Tablet 5 Mg PO DAILY Ferrous Sulfate 325 Mg Tablet 325 Mg PO BID Geodon (Ziprasidone Hcl) 40 Mg Capsule 40 Mg PO BID Give with food Oxcarbazepine 300 Mg Tablet 300 Mg PO BID Magnesium Oxide 400 Mg Tablet 400 Mg PO TID Namenda (Memantine Hcl) 10 Mg Tablet 10 Mg PO BID Lipitor (Atorvastatin Calcium) 80 Mg Tablet 80 Mg PO QHS Ropinirole Hcl 0.5 Mg Tablet 0.5 Mg PO TID Polyethylene Glycol 3350 17 Gm Powd.pack 17 Gm PO BID Oxybutynin Chloride 5 Mg Tablet 2.5 Mg PO DAILY Milk Of Magnesia (Magnesium Hydroxide) 2,400 Mg/10 Ml Oral.susp 2,400 Mg PO PRN DAILY PRN Lamotrigine 200 Mg Tab.er.24 200 Mg PO HS Docusate Sodium 100 Mg Tablet 200 Mg PO PRN HS PRN Restasis (Cyclosporine) 1 Each Droperette 1 Drop OU BID Citalopram Hbr (Citalopram Hydrobromide) 20 Mg Tablet 20 Mg PO HS Calcitrate + Vit D Caplet (Calcium Citrate/Vitamin D3) 1 Each Tablet 1 Tab PO DAILY Benztropine Mesylate 2 Mg Tablet 2 Mg PO BID Acetaminophen 500 Mg Tablet 650 Mg PO PRN Q6HRS PRN MAXIMUM DOSE OF ACETAMINIOPHEN IS 4,000 MG IN 24 HOURS FROM ALL SOURCES FOR ADULTS. LAST DOSE GIVEN: NOT GIVEN THIS ADMISSION NEXT DOSE DUE: DATE: TODAY TIME: IF NEEDED Diagnosis: Problems: (1) Impulse control disorder (2) Psychosis, atypical (3) Anxiety disorder (4) Schizoaffective disorder, chronic condition with acute exacerbation (5) Healthcare-associated pneumonia DONNELL VELASQUEZ MD Dec 13, 2016 21:18
[2016-12-13] MEDS: ATORVASTATIN CALCIUM 20 MG TABLET PO SCH (21:42)
[2016-12-13] MEDS: CITALOPRAM 20 MG TABLET. PO SCH (21:42)
[2016-12-13] MEDS: QUEtiapine 50 MG TABLET. PO SCH (21:42)
[2016-12-13] MEDS: DIVALPROEX ER 250 MG TAB.ER.24H. PO SCH (21:43)
[2016-12-13] MEDS: DIVALPROEX ER 500 MG TAB.ER.24H PO SCH (21:43)
[2016-12-13] MEDS: traZODone 100 MG TABLET. PO SCH (21:43)
--- NOTE | 2016-12-13 22:39 | PN ---
DATE: 12/12/2016 PSYCHIATRIC PROGRESS NOTE This is a late entry for 12/12/2016, covers elements not covered in my initial note. SUBJECTIVE: I was called by the nursing staff around 4 o'clock in the morning on 12/12/2016 because of the patient experiencing some cogwheeling and jerking movements of the arms. Nursing staff wondered whether Geodon could be causing some extrapyramidal symptoms and we stopped it and consulted Dr. Coronado for Neurology. She has done better since then. REVIEW OF SYSTEMS: No CV, , pulmonary, eye system symptoms on review. Does admit to some stiffness. MENTAL STATUS EXAM: Reasonably oriented. Speech coherent, abstraction fair, computation impaired. She is still paranoid. No active suicidal or homicidal ideation. Attention span short, language function intact. She slept 7-3/4 hours previous night. LABORATORY DATA: Reviewed. IMPRESSION: Schizoaffective disorder, bipolar type, with psychotic features, in partial remission. Rest diagnosis unchanged. PLAN: Continue current psychotropics. Depakote dosage has been adjusted. We will start Seroquel 50 mg at bedtime as an antipsychotic. MAN Gracia VELASQUEZ MD DR: JUSTIN/pattie JOB#: [id number] / [id number]
[2016-12-14 06:28] VITALS: BP 124/73
[2016-12-14] MEDS: OXYBUTYNIN CHLORIDE 5 MG TABLET PO SCH (08:28)
[2016-12-14] MEDS: PANTOPRAZOLE 40 MG TABLET. PO SCH (08:28)
[2016-12-14] MEDS: POLYETHYLENE GLYCOL 3350 17 GM PACKET. PO SCH ×2 (08:28→19:45)
[2016-12-14] MEDS: CYCLOSPORINE 0.05% OPTH DROPERETTE. OU SCH ×2 (08:28→19:43)
[2016-12-14] MEDS: BENZTROPINE MESYLATE 1 MG TABLET PO SCH ×2 (08:28→19:41)
[2016-12-14] MEDS: METFORMIN 500 MG TABLET. PO SCH ×2 (08:28→17:00)
[2016-12-14] MEDS: CALCIUM CARB/VIT D3 500/200 TABLET PO SCH (08:28)
[2016-12-14] MEDS: FERROUS SULFATE 325 MG TABLET PO SCH ×2 (08:30→19:41)
[2016-12-14] MEDS: MAGNESIUM OXIDE 400 MG TABLET PO SCH ×3 (08:30→19:40)
[2016-12-14] MEDS: ACETAMINOPHEN 650 MG TABLET.ER PO SCH (08:30)
[2016-12-14] MEDS: LISINOPRIL 5 MG TABLET. PO SCH (08:30)
[2016-12-14] MEDS: rOPINIRole 0.5 MG TABLET. PO SCH ×3 (08:30→19:41)
[2016-12-14] MEDS: METOPROLOL TART IMMED RELEASE 25 MG TABLET PO SCH ×2 (08:31→19:42)
[2016-12-14] MEDS: POLYVINYL ALCOHOL 1.4% OPHTH SOLUTION 15ML BOTTLE. OU SCH (08:32)
[2016-12-14] MEDS: MEMANTINE 10 MG TABLET. PO SCH ×2 (08:51→19:41)
[2016-12-14 16:24] VITALS: BP 123/78
[2016-12-14 18:21] LABS: BILIRUBIN,URINE NEG (NEG); CLARITY,URINE HAZY; COLOR,URINE YELLOW; GLUCOSE,URINE NEG (NEG); NITRITE,URINE NEG (NEG); UROBILINOGEN,URINE 0.2 mg/dL (0.2 mg/dL)
[2016-12-14 18:22] LABS: BACTERIA,URINE 0 /HPF (0-FEW); SQUAMOUS EPITHELIAL CELL,UR FEW /LPF
--- NOTE | 2016-12-14 19:00 | RAD ---
PROCEDURE CT head without intravenous contrast. HISTORY Altered mental status. TECHNIQUE Axial images are obtained of the head from the skull base through the vertex without IV contrast Exposure: One or more of the following individualized dose reduction techniques were utilized for this examination: 1. Automated exposure control. 2. Adjustment of the mA and/or kV according to patient size. 3. Use of iterative reconstruction technique. COMPARISON CT head December 08, 2016. FINDINGS The ventricles are appropriate in size, shape, and location for the patient's age.No obvious intracranial mass, mass-effect, midline shift, hemorrhage or obvious acute infarction is identified.Basilar cisterns are patent. Bone windows demonstrate no acute calvarial abnormality.The visualized paranasal sinuses appear clear. IMPRESSION No acute intracranial process. Please note that CT can be relatively insensitive to acute ischemic infarction for up to 24 hours after symptom onset. Electronically signed by: Pepe Daley MD (Dec 14, 2016 18:59:29)
[2016-12-14] MEDS: ATORVASTATIN CALCIUM 20 MG TABLET PO SCH (19:40)
[2016-12-14] MEDS: DIVALPROEX ER 250 MG TAB.ER.24H. PO SCH (19:40)
[2016-12-14] MEDS: DIVALPROEX ER 500 MG TAB.ER.24H PO SCH (19:40)
[2016-12-14] MEDS: traZODone 100 MG TABLET. PO SCH (19:41)
[2016-12-14] MEDS: CITALOPRAM 20 MG TABLET. PO SCH (19:41)
--- NOTE | 2016-12-15 03:19 | PN ---
DATE: 12/13/2016 This late entry 12/13/2016 covers elements not covered in my initial note. SUBJECTIVE: The patient has been somewhat drowsy at times, has tremors, unable to hold things in her hand. Dr. Coronado is following her neurologically. We stopped the Geodon in case the atypical antipsychotic could be contributing to it, but no change seen so far. REVIEW OF SYSTEMS: Ambulation impaired and difficulty holding things in her hand. No CV, , pulmonary, eye system symptoms on review. MENTAL STATUS EXAM: Oriented reasonably to herself and situation. Speech has some latency, coherent. Abstraction fair, computation impaired. She is still somewhat psychotic. LABORATORY DATA: Reviewed. IMPRESSION: Unchanged from initial note. PLAN: Continue Namenda 10 b.i.d., Depakote ER 750 at bedtime. Follow labs level. We may stop the Trileptal. Continue Celexa, Atarax p.r.n., trazodone and Cogentin at current dosage. DONNELL VELASQUEZ MD DR: JUSTIN/pattie JOB#: [id number] / [id number]
[2016-12-15 06:22] VITALS: BP 153/81
[2016-12-15] MEDS: PANTOPRAZOLE 40 MG TABLET. PO SCH ×2 (07:30→09:48)
[2016-12-15] MEDS: METFORMIN 500 MG TABLET. PO SCH ×4 (08:00→15:28)
[2016-12-15] MEDS: LISINOPRIL 5 MG TABLET. PO SCH ×2 (09:00→09:50)
[2016-12-15] MEDS: METOPROLOL TART IMMED RELEASE 25 MG TABLET PO SCH ×3 (09:00→20:39)
[2016-12-15] MEDS: POLYVINYL ALCOHOL 1.4% OPHTH SOLUTION 15ML BOTTLE. OU SCH ×2 (09:00→09:47)
[2016-12-15] MEDS: CALCIUM CARB/VIT D3 500/200 TABLET PO SCH ×2 (09:00→09:49)
[2016-12-15] MEDS: MAGNESIUM OXIDE 400 MG TABLET PO SCH ×5 (09:00→20:37)
[2016-12-15] MEDS: rOPINIRole 0.5 MG TABLET. PO SCH ×5 (09:00→20:39)
[2016-12-15] MEDS: CYCLOSPORINE 0.05% OPTH DROPERETTE. OU SCH ×3 (09:00→21:00)
[2016-12-15] MEDS: ARIPIPRAZOLE 5 MG TABLET PO SCH ×2 (09:00→09:51)
[2016-12-15] MEDS: BENZTROPINE MESYLATE 1 MG TABLET PO SCH ×3 (09:00→20:39)
[2016-12-15] MEDS: FERROUS SULFATE 325 MG TABLET PO SCH ×3 (09:00→20:40)
[2016-12-15] MEDS: MEMANTINE 10 MG TABLET. PO SCH ×3 (09:00→20:38)
[2016-12-15] MEDS: OXYBUTYNIN CHLORIDE 5 MG TABLET PO SCH ×2 (09:00→09:50)
[2016-12-15] MEDS: ACETAMINOPHEN 650 MG TABLET.ER PO SCH ×2 (09:00→09:49)
[2016-12-15] MEDS: POLYETHYLENE GLYCOL 3350 17 GM PACKET. PO SCH ×3 (09:00→20:42)
[2016-12-15 09:19] LABS: BASO # 0.1 x10^3/uL (0.0-0.2); BASO % 1 % (0-3); EOS % 0 % (0-3); HEMATOCRIT 33.2 % (36.0-47.0); HEMOGLOBIN 10.6 g/dL (12.0-15.5); LYMPH # 1.5 x10^3/uL (1.0-4.8); LYMPH % 13 % (24-48); MEAN CORPUSCULAR HEMOGLOBIN 29 pg (25-35); MEAN CORPUSCULAR HGB CONC 32 g/dL (31-37); MEAN CORPUSCULAR VOLUME 89 fL (79-100); MONO # 0.7 x10^3/uL (0.0-1.1); MONO % 6 % (0-9); NEUT # 9.1 x10^3uL (1.8-7.7); NEUT % 79 % (31-73); PLATELET COUNT 355 x10^3/uL (140-400); RED BLOOD COUNT 3.72 x10^6/uL (3.50-5.40); RED CELL DISTRIBUTION WIDTH 15.4 % (11.5-14.5); WHITE BLOOD COUNT 11.5 x10^3/uL (4.0-11.0)
[2016-12-15 09:32] LABS: ALBUMIN 3.2 g/dL (3.4-5.0); ALBUMIN/GLOBULIN RATIO 0.7 (1.0-1.7); ALK PHOS 157 U/L (46-116); ALT (SGPT) 19 U/L (14-59); ANION GAP 9 (6-14); AST (SGOT) 22 U/L (15-37); BLOOD UREA NITROGEN 37 mg/dL (7-20); BUN/CREATININE RATIO 53 (6-20); CALCIUM 9.1 mg/dL (8.5-10.1); CARBON DIOXIDE 32 mmol/L (21-32); CHLORIDE 106 mmol/L (98-107); CREATININE 0.7 mg/dL (0.6-1.0); GFR 80.9; GLUCOSE 96 mg/dL (70-99); POTASSIUM 4.1 mmol/L (3.5-5.1); SODIUM 147 mmol/L (136-145); TOTAL BILIRUBIN 0.2 mg/dL (0.2-1.0); TOTAL PROTEIN 7.9 g/dL (6.4-8.2)
[2016-12-15 09:35] LABS: VAL ACID 72 mcg/mL (50-100)
[2016-12-15] MEDS: OLANZAPINE ZYDIS 5 MG TAB.RAPDIS PO PRN (10:09)
[2016-12-15 16:29] VITALS: BP 147/63
[2016-12-15] MEDS: CITALOPRAM 20 MG TABLET. PO SCH (20:37)
[2016-12-15] MEDS: DIVALPROEX ER 500 MG TAB.ER.24H PO SCH (20:38)
[2016-12-15] MEDS: DIVALPROEX ER 250 MG TAB.ER.24H. PO SCH (20:38)
[2016-12-15] MEDS: ATORVASTATIN CALCIUM 20 MG TABLET PO SCH (20:40)
[2016-12-15] MEDS: traZODone 100 MG TABLET. PO SCH (20:40)
[2016-12-16 05:59] VITALS: BP 162/81
[2016-12-16] MEDS: CYCLOSPORINE 0.05% OPTH DROPERETTE. OU SCH ×2 (07:50→20:58)
[2016-12-16] MEDS: LISINOPRIL 5 MG TABLET. PO SCH (07:51)
[2016-12-16] MEDS: METOPROLOL TART IMMED RELEASE 25 MG TABLET PO SCH ×2 (07:53→20:53)
[2016-12-16] MEDS: rOPINIRole 0.5 MG TABLET. PO SCH ×3 (07:53→20:51)
[2016-12-16] MEDS: ARIPIPRAZOLE 5 MG TABLET PO SCH (07:53)
[2016-12-16] MEDS: ACETAMINOPHEN 650 MG TABLET.ER PO SCH (07:54)
[2016-12-16] MEDS: FERROUS SULFATE 325 MG TABLET PO SCH ×2 (07:54→20:52)
[2016-12-16] MEDS: OXYBUTYNIN CHLORIDE 5 MG TABLET PO SCH (07:54)
[2016-12-16] MEDS: CALCIUM CARB/VIT D3 500/200 TABLET PO SCH (07:54)
[2016-12-16] MEDS: MAGNESIUM OXIDE 400 MG TABLET PO SCH ×3 (07:54→20:53)
[2016-12-16] MEDS: METFORMIN 500 MG TABLET. PO SCH ×2 (07:54→16:52)
[2016-12-16] MEDS: PANTOPRAZOLE 40 MG TABLET. PO SCH (07:54)
[2016-12-16] MEDS: MEMANTINE 10 MG TABLET. PO SCH ×2 (07:55→20:53)
[2016-12-16] MEDS: BENZTROPINE MESYLATE 1 MG TABLET PO SCH ×2 (07:55→20:53)
[2016-12-16] MEDS: POLYVINYL ALCOHOL 1.4% OPHTH SOLUTION 15ML BOTTLE. OU SCH ×2 (07:55→20:54)
[2016-12-16] MEDS: POLYETHYLENE GLYCOL 3350 17 GM PACKET. PO SCH ×2 (07:55→20:55)
--- NOTE | 2016-12-16 09:26 | PDOC ---
Exam Adrian Demential Exam: Adrian Note: Please also refer to the separate dictated note~for this date of service dictated separately.~Patient seen individually. Discussed the patient with Nursing staff reviewed the chart.~Reviewed interim history and current functioning. Reviewed vital signs,~Labs/ Radiology~and current medications noted below. Continue current treatment with the changes noted in the dictated addendum note Assessment: Vital Signs: Vital Signs Date Time Temp Pulse Resp B/P Pulse Ox O2 Delivery O2 Flow Rate FiO2 12/16/16 07:53 76 162/81 12/16/16 05:59 97.1 18 94 12/14/16 16:24 Room Air I&O Intake and Output 12/16/16 07:00 Intake Total 840 ml Balance 840 ml Intake Oral 840 ml # Bowel Movements 2 Labs: Laboratory Tests Test 12/15/16 11:27 12/15/16 16:53 12/15/16 19:25 12/16/16 07:39 Glucose (Fingerstick) 95mg/dL (70-99) 83mg/dL (70-99) 77mg/dL (70-99) 84mg/dL (70-99) Current Medications: Meds: Current Medications Acetaminophen (Tylenol) 650 mg PRN Q6HRS PRN PO PAIN / TEMP; Start 12/06/16 at 20:15; Status Cancel Multi-Ingredient Ointment (Analgesic [place]) 1 dain PRN QID PRN TP MUSCLE PAIN; Start 12/06/16 at 20:15 Al Hydroxide/Mg Hydroxide (Mylanta Plus Xs) 15 ml PRN AFTMEALHC PRN PO DYSPEPSIA; Start 12/06/16 at 20:15 Magnesium Hydroxide (Milk Of Magnesia) 2,400 mg PRN QHS PRN PO CONSTIPATION; Start 12/06/16 at 20:15 Citalopram Hydrobromide (Celexa) 20 mg HS PO Last administered on 12/15/16 20: 37; Start 12/06/16 at 21:00 Memantine (Namenda) 10 mg BID PO Last administered on 12/16/16 07:55; Start at 21:00 Oxcarbazepine (Trileptal) 300 mg BID PO Last administered on 12/13/16 08:33; Start 12/06/16 at 21:00; Stop 12/13/16 at 18:38; Status DC Ziprasidone (Geodon) 40 mg BIDWMEALS PO Last administered on 12/11/16 16:51; Start 12/06/16 at 21:00; Stop 12/12/16 at 05:19; Status DC Lamotrigine (LaMICtal) 200 mg QHS PO ; Start 12/06/16 at 21:30; Status Cancel Non-Formulary Medication 1 ea QHS PO ; Start 12/07/16 at 21:00; Status Cancel Lamotrigine (LaMICtal) 100 mg BID PO Last administered on 12/07/16 08:37; Start 12/06/16 at 22:15; Stop 12/07/16 at 18:21; Status DC Atorvastatin Calcium (Lipitor) 80 mg QHS PO Last administered on 12/15/16 20: 40; Start 12/06/16 at 22:00 Metformin HCl (Glucophage) 1,000 mg BIDWMEALS PO Last administered on 07:54; Start 12/07/16 at 08:00 Hydroxyzine HCl (Atarax) 50 mg PRN Q2HR PRN PO PSYCHOSIS Last administered on 01:55; Start 12/06/16 at 22:00 Olanzapine (Zyprexa Zydis) 5 mg PRN Q2HR PRN PO PSYCHOSIS Last administered on 12/15/16 10:09; Start 12/06/16 at 22:00 Acetaminophen (Tylenol) 650 mg PRN Q6HRS PRN PO fever/pain; Start 12/07/16 at 06:00 Acetaminophen (Tylenol Arthritis) 650 mg DAILY PO Last administered on 07:54; Start 12/07/16 at 09:00 Cyclosporine (Restasis) 1 drop BID OU Last administered on 12/16/16 07:50; Start 12/07/16 at 09:00 Ferrous Sulfate (Feosol) 325 mg BID PO Last administered on 12/16/16 07:54; Start 12/07/16 at 09:00 Lisinopril (Prinivil) 5 mg DAILY PO Last administered on 12/16/16 07:51; Start 12/07/16 at 09:00 Magnesium Oxide (Magnesium Oxide) 400 mg TID PO Last administered on 12/16/16 07:54; Start 12/07/16 at 09:00 Metoprolol Tartrate (Lopressor) 12.5 mg BID PO Last administered on 12/16/16 07:53; Start 12/07/16 at 09:00 Oxybutynin Chloride (Ditropan) 2.5 mg DAILY PO Last administered on 12/16/16 07:54; Start 12/07/16 at 09:00 Polyethylene Glycol (miraLAX) 17 gm BID PO Last administered on 12/16/16 07:55 ; Start 12/07/16 at 09:00 Ropinirole HCl (Requip) 0.5 mg TID PO Last administered on 12/16/16 07:53; Start 12/07/16 at 09:00 Benztropine Mesylate (Cogentin) 2 mg BID PO Last administered on 12/16/16 07: 55; Start 12/07/16 at 09:00 Calcium/Vitamin D (Oscal D 500mg/ 200uts) 1 tab DAILY PO Last administered on 07:54; Start 12/07/16 at 09:00 Artificial Tears (Artificial Tears) 1 drop DAILY OU Last administered on 07:55; Start 12/07/16 at 09:00 Non-Formulary Medication 1 each PRN QHS PRN OU DRY EYE; Start 12/07/16 at 06:00 ; Status UNV Docusate Sodium (Colace) 200 mg PRN QHS PRN PO CONSTIPATION; Start 12/07/16 at 06:15 Non-Formulary Medication 2,400 mg PRN DAILY PRN PO CONSTIPATION; Start at 06:00; Status UNV Pantoprazole Sodium (Protonix) 40 mg DAILYAC PO Last administered on 12/16/16 07:54; Start 12/07/16 at 07:30 Trazodone HCl (Desyrel) 100 mg 1X ONCE PO Last administered on 12/07/16 06:18 ; Start 12/07/16 at 06:30; Stop 12/07/16 at 06:31; Status DC Trazodone HCl (Desyrel) 100 mg PRN QHS PRN PO INSOMNIA; Start 12/07/16 at 06:00 Divalproex Sodium (Depakote Er) 500 mg QHS PO Last administered on 12/11/16 20 :48; Start 12/07/16 at 21:00; Stop 12/12/16 at 13:16; Status DC Trazodone HCl (Desyrel) 100 mg QHS PO Last administered on 12/15/16 20:40; Start 12/07/16 at 21:00 Divalproex Sodium (Depakote Er) 500 mg HS PO Last administered on 12/15/16 20: 38; Start 12/12/16 at 21:00 Divalproex Sodium (Depakote Er) 250 mg HS PO Last administered on 12/15/16 20: 38; Start 12/12/16 at 21:00 Quetiapine Fumarate (SEROquel) 50 mg HS PO Last administered on 12/13/16 21:42 ; Start 12/12/16 at 21:00; Stop 12/14/16 at 18:24; Status DC Aripiprazole (Abilify) 5 mg DAILY PO Last administered on 12/16/16 07:53; Start 12/15/16 at 09:00 Active Scripts Active Reported Omeprazole 40 Mg Capsule.dr 40 Mg PO DAILY Artificial Tears (Dextran 70/Hypromellose) 1 Each Droperette 1 Each OU DAILY Artificial Tears (Dextran 70/Hypromellose) 1 Each Droperette 1 Each OU PRN QHS PRN Arthritis Pain (Acetaminophen) 650 Mg Tablet.er 650 Mg PO DAILY Metoprolol Succinate ( Xl ) (Metoprolol Succinate) 25 Mg Tab.er.24h 12.5 Mg PO BID Metformin Hcl 1,000 Mg Tablet 1,000 Mg PO BID Lisinopril 5 Mg Tablet 5 Mg PO DAILY Ferrous Sulfate 325 Mg Tablet 325 Mg PO BID Geodon (Ziprasidone Hcl) 40 Mg Capsule 40 Mg PO BID Give with food Oxcarbazepine 300 Mg Tablet 300 Mg PO BID Magnesium Oxide 400 Mg Tablet 400 Mg PO TID Namenda (Memantine Hcl) 10 Mg Tablet 10 Mg PO BID Lipitor (Atorvastatin Calcium) 80 Mg Tablet 80 Mg PO QHS Ropinirole Hcl 0.5 Mg Tablet 0.5 Mg PO TID Polyethylene Glycol 3350 17 Gm Powd.pack 17 Gm PO BID Oxybutynin Chloride 5 Mg Tablet 2.5 Mg PO DAILY Milk Of Magnesia (Magnesium Hydroxide) 2,400 Mg/10 Ml Oral.susp 2,400 Mg PO PRN DAILY PRN Lamotrigine 200 Mg Tab.er.24 200 Mg PO HS Docusate Sodium 100 Mg Tablet 200 Mg PO PRN HS PRN Restasis (Cyclosporine) 1 Each Droperette 1 Drop OU BID Citalopram Hbr (Citalopram Hydrobromide) 20 Mg Tablet 20 Mg PO HS Calcitrate + Vit D Caplet (Calcium Citrate/Vitamin D3) 1 Each Tablet 1 Tab PO DAILY Benztropine Mesylate 2 Mg Tablet 2 Mg PO BID Acetaminophen 500 Mg Tablet 650 Mg PO PRN Q6HRS PRN MAXIMUM DOSE OF ACETAMINIOPHEN IS 4,000 MG IN 24 HOURS FROM ALL SOURCES FOR ADULTS. LAST DOSE GIVEN: NOT GIVEN THIS ADMISSION NEXT DOSE DUE: DATE: TODAY TIME: IF NEEDED Diagnosis: Problems: (1) Anxiety disorder (2) Impulse control disorder (3) Psychosis, atypical (4) Schizoaffective disorder, chronic condition with acute exacerbation DONNELL VELASQUEZ MD Dec 16, 2016 09:26
[2016-12-16 16:24] VITALS: BP 157/62
[2016-12-16] MEDS: DIVALPROEX ER 250 MG TAB.ER.24H. PO SCH (20:51)
[2016-12-16] MEDS: traZODone 100 MG TABLET. PO SCH (20:51)
[2016-12-16] MEDS: ATORVASTATIN CALCIUM 20 MG TABLET PO SCH (20:51)
[2016-12-16] MEDS: DIVALPROEX ER 500 MG TAB.ER.24H PO SCH (20:52)
[2016-12-16] MEDS: CITALOPRAM 20 MG TABLET. PO SCH (20:53)
--- NOTE | 2016-12-17 02:56 | PN ---
DATE: 12/14/2016 PSYCHIATRIC PROGRESS NOTE This is a late entry of 12/14/2016. Covers elements not covered in my initial note. SUBJECTIVE: The patient was staffed at a treatment team meeting with the entire team. Reviewed a history. Neurological changes. Difficulty holding things in her hands, noncompliance with medications. Neurology consult, UA, C and S. is negative. We will repeat a CT head since his mental status change, despite the fact she had a CT head at admission, which was unremarkable. We will also be checking a UA. REVIEW OF SYSTEMS: Ambulation impaired, difficulty holding things in her hand. No CV, , pulmonary, eye system symptoms on review. MENTAL STATUS EXAM: Reasonably oriented. Speech coherent, abstraction fair, computation impaired, language function intact, attention span short, mood and affect, lability is improved, but she is still psychotic. LABORATORY DATA: Reviewed. IMPRESSION: Schizoaffective disorder, bipolar type, mixed with psychotic features. Rest diagnoses unchanged. PLAN: Change the Seroquel 50 at bedtime to Abilify 5 mg a day for her ongoing psychosis. Continue Depakote. We will stop the Trileptal, maintain Namenda 10 b.i.d., Celexa 20 mg a day, Atarax p.r.n., trazodone 100 at bedtime, may repeat x 1, Cogentin 2 b.i.d. Adjust further as clinically indicated. MAN Gracia VELASQUEZ MD DR: JUSTIN/pattie JOB#: [id number] / [id number]
--- NOTE | 2016-12-17 03:03 | PN ---
DATE: 12/15/2016 PSYCHIATRIC PROGRESS NOTE This is a late entry for 12/15/2016, covers elements not covered in my initial note. SUBJECTIVE: Temperature 97.2, BP 153/81, pulse 93, respirations 18. Overall, the patient has had a very difficult day, yelling, rude, sarcastic, psychotic, refused medications, wiped applesauce on the leg of a nursing staff, received Zyprexa at 10 a.m., UA negative, CT head negative and refusing to eat, take her medications. WBC increased. She is somewhat dehydrated. Sodium 147, BUN 37, valproic acid level 72. REVIEW OF SYSTEMS: Ambulation impaired, in her wheelchair, difficulty holding things and some tremors, though these seem better. No CV, , pulmonary, eye system symptoms on review. MENTAL STATUS EXAM: Reasonably oriented. Speech is coherent, has some latency, less pressured. Abstraction fair, computation impaired, language function intact, attention span short. Mood and affect somewhat labile. LABORATORY DATA: Reviewed. IMPRESSION: Schizoaffective disorder, bipolar type, with psychotic features. Rest diagnoses unchanged. PLAN: Trileptal was stopped. Continue Depakote, level therapeutic. Namenda is 10 b.i.d., Celexa 20 mg a day, Atarax, Zyprexa p.r.n., Depakote ER 750 at bedtime, trazodone 100 at bedtime, may repeat x 1. Nursing staff will give Abilify with syringe for compliance, Cogentin 2 mg twice a day. We had considered IM Haldol scheduled, but she is allergic to HALDOL. DONNELL VELASQUEZ MD DR: JUSTIN/pattie JOB#: [id number] / [id number]
[2016-12-17 06:13] VITALS: BP 157/78
[2016-12-17] MEDS: METOPROLOL TART IMMED RELEASE 25 MG TABLET PO SCH ×2 (07:26→20:02)
[2016-12-17] MEDS: MEMANTINE 10 MG TABLET. PO SCH ×2 (07:27→20:02)
[2016-12-17] MEDS: BENZTROPINE MESYLATE 1 MG TABLET PO SCH ×2 (07:27→20:01)
[2016-12-17] MEDS: ARIPIPRAZOLE 5 MG TABLET PO SCH (07:27)
[2016-12-17] MEDS: ACETAMINOPHEN 650 MG TABLET.ER PO SCH (07:27)
[2016-12-17] MEDS: METFORMIN 500 MG TABLET. PO SCH ×2 (07:27→16:02)
[2016-12-17] MEDS: CALCIUM CARB/VIT D3 500/200 TABLET PO SCH (07:27)
[2016-12-17] MEDS: OXYBUTYNIN CHLORIDE 5 MG TABLET PO SCH (07:28)
[2016-12-17] MEDS: FERROUS SULFATE 325 MG TABLET PO SCH ×2 (07:28→20:02)
[2016-12-17] MEDS: MAGNESIUM OXIDE 400 MG TABLET PO SCH ×3 (07:28→20:00)
[2016-12-17] MEDS: LISINOPRIL 5 MG TABLET. PO SCH (07:29)
[2016-12-17] MEDS: rOPINIRole 0.5 MG TABLET. PO SCH ×3 (07:29→20:00)
[2016-12-17] MEDS: PANTOPRAZOLE 40 MG TABLET. PO SCH (07:29)
[2016-12-17] MEDS: POLYETHYLENE GLYCOL 3350 17 GM PACKET. PO SCH ×2 (07:29→20:03)
[2016-12-17] MEDS: CYCLOSPORINE 0.05% OPTH DROPERETTE. OU SCH ×2 (07:29→20:04)
[2016-12-17] MEDS: SALIVA STIMULANT AGENT MOUTHWASH 237ML BOTTLE. PO PRN ×2 (09:59→13:39)
[2016-12-17 16:21] VITALS: BP 116/71
[2016-12-17] MEDS: CITALOPRAM 20 MG TABLET. PO SCH (20:01)
[2016-12-17] MEDS: traZODone 100 MG TABLET. PO SCH (20:01)
[2016-12-17] MEDS: DIVALPROEX ER 500 MG TAB.ER.24H PO SCH (20:01)
[2016-12-17] MEDS: ATORVASTATIN CALCIUM 20 MG TABLET PO SCH (20:02)
[2016-12-17] MEDS: DIVALPROEX ER 250 MG TAB.ER.24H. PO SCH (20:02)
--- NOTE | 2016-12-17 22:09 | PDOC ---
Exam Adrian Demential Exam: Adrian Note: Please also refer to the separate dictated note~for this date of service dictated separately.~Patient seen individually. Discussed the patient with Nursing staff reviewed the chart.~Reviewed interim history and current functioning. Reviewed vital signs,~Labs/ Radiology~and current medications noted below. Continue current treatment with the changes noted in the dictated addendum note Assessment: Vital Signs: Vital Signs Date Time Temp Pulse Resp B/P Pulse Ox O2 Delivery O2 Flow Rate FiO2 12/17/16 20:02 79 116/71 12/17/16 16:21 97.8 18 97 12/17/16 06:13 Room Air I&O Intake and Output 12/17/16 07:00 Intake Total 480 ml Balance 480 ml Intake Oral 480 ml Labs: Laboratory Tests Test 12/17/16 07:29 12/17/16 11:48 12/17/16 16:56 12/17/16 19:28 Glucose (Fingerstick) 85mg/dL (70-99) 102mg/dL (70-99) H 94mg/dL (70-99) 96mg/dL (70-99) Current Medications: Meds: Current Medications Acetaminophen (Tylenol) 650 mg PRN Q6HRS PRN PO PAIN / TEMP; Start 12/06/16 at 20:15; Status Cancel Multi-Ingredient Ointment (Analgesic [place]) 1 dain PRN QID PRN TP MUSCLE PAIN; Start 12/06/16 at 20:15 Al Hydroxide/Mg Hydroxide (Mylanta Plus Xs) 15 ml PRN AFTMEALHC PRN PO DYSPEPSIA; Start 12/06/16 at 20:15 Magnesium Hydroxide (Milk Of Magnesia) 2,400 mg PRN QHS PRN PO CONSTIPATION; Start 12/06/16 at 20:15 Citalopram Hydrobromide (Celexa) 20 mg HS PO Last administered on 12/17/16 20: 01; Start 12/06/16 at 21:00 Memantine (Namenda) 10 mg BID PO Last administered on 12/17/16 20:02; Start at 21:00 Oxcarbazepine (Trileptal) 300 mg BID PO Last administered on 12/13/16 08:33; Start 12/06/16 at 21:00; Stop 12/13/16 at 18:38; Status DC Ziprasidone (Geodon) 40 mg BIDWMEALS PO Last administered on 12/11/16 16:51; Start 12/06/16 at 21:00; Stop 12/12/16 at 05:19; Status DC Lamotrigine (LaMICtal) 200 mg QHS PO ; Start 12/06/16 at 21:30; Status Cancel Non-Formulary Medication 1 ea QHS PO ; Start 12/07/16 at 21:00; Status Cancel Lamotrigine (LaMICtal) 100 mg BID PO Last administered on 12/07/16 08:37; Start 12/06/16 at 22:15; Stop 12/07/16 at 18:21; Status DC Atorvastatin Calcium (Lipitor) 80 mg QHS PO Last administered on 12/17/16 20:02 ; Start 12/06/16 at 22:00 Metformin HCl (Glucophage) 1,000 mg BIDWMEALS PO Last administered on 12/17/16 16:02; Start 12/07/16 at 08:00 Hydroxyzine HCl (Atarax) 50 mg PRN Q2HR PRN PO PSYCHOSIS Last administered on 01:55; Start 12/06/16 at 22:00 Olanzapine (Zyprexa Zydis) 5 mg PRN Q2HR PRN PO PSYCHOSIS Last administered on 12/15/16 10:09; Start 12/06/16 at 22:00 Acetaminophen (Tylenol) 650 mg PRN Q6HRS PRN PO fever/pain; Start 12/07/16 at 06:00 Acetaminophen (Tylenol Arthritis) 650 mg DAILY PO Last administered on 07:27; Start 12/07/16 at 09:00 Cyclosporine (Restasis) 1 drop BID OU Last administered on 12/17/16 20:04; Start 12/07/16 at 09:00 Ferrous Sulfate (Feosol) 325 mg BID PO Last administered on 12/17/16 20:02; Start 12/07/16 at 09:00 Lisinopril (Prinivil) 5 mg DAILY PO Last administered on 12/17/16 07:29; Start 12/07/16 at 09:00 Magnesium Oxide (Magnesium Oxide) 400 mg TID PO Last administered on 12/17/16 20:00; Start 12/07/16 at 09:00 Metoprolol Tartrate (Lopressor) 12.5 mg BID PO Last administered on 12/17/16 20 :02; Start 12/07/16 at 09:00 Oxybutynin Chloride (Ditropan) 2.5 mg DAILY PO Last administered on 12/17/16 07 :28; Start 12/07/16 at 09:00 Polyethylene Glycol (miraLAX) 17 gm BID PO Last administered on 12/17/16 20:03 ; Start 12/07/16 at 09:00 Ropinirole HCl (Requip) 0.5 mg TID PO Last administered on 12/17/16 20:00; Start 12/07/16 at 09:00 Benztropine Mesylate (Cogentin) 2 mg BID PO Last administered on 12/17/16 20:01 ; Start 12/07/16 at 09:00 Calcium/Vitamin D (Oscal D 500mg/ 200uts) 1 tab DAILY PO Last administered on 07:27; Start 12/07/16 at 09:00 Artificial Tears (Artificial Tears) 1 drop DAILY OU Last administered on 20:54; Start 12/07/16 at 09:00 Non-Formulary Medication 1 each PRN QHS PRN OU DRY EYE; Start 12/07/16 at 06:00 ; Status UNV Docusate Sodium (Colace) 200 mg PRN QHS PRN PO CONSTIPATION; Start 12/07/16 at 06:15 Non-Formulary Medication 2,400 mg PRN DAILY PRN PO CONSTIPATION; Start at 06:00; Status UNV Pantoprazole Sodium (Protonix) 40 mg DAILYAC PO Last administered on 12/17/16 07:29; Start 12/07/16 at 07:30 Trazodone HCl (Desyrel) 100 mg 1X ONCE PO Last administered on 12/07/16 06:18 ; Start 12/07/16 at 06:30; Stop 12/07/16 at 06:31; Status DC Trazodone HCl (Desyrel) 100 mg PRN QHS PRN PO INSOMNIA; Start 12/07/16 at 06:00 Divalproex Sodium (Depakote Er) 500 mg QHS PO Last administered on 12/11/16 20 :48; Start 12/07/16 at 21:00; Stop 12/12/16 at 13:16; Status DC Trazodone HCl (Desyrel) 100 mg QHS PO Last administered on 12/17/16 20:01; Start 12/07/16 at 21:00 Divalproex Sodium (Depakote Er) 500 mg HS PO Last administered on 12/17/16 20: 01; Start 12/12/16 at 21:00 Divalproex Sodium (Depakote Er) 250 mg HS PO Last administered on 12/17/16 20: 02; Start 12/12/16 at 21:00 Quetiapine Fumarate (SEROquel) 50 mg HS PO Last administered on 12/13/16 21:42 ; Start 12/12/16 at 21:00; Stop 12/14/16 at 18:24; Status DC Aripiprazole (Abilify) 5 mg DAILY PO Last administered on 12/17/16 07:27; Start 12/15/16 at 09:00 Saliva Substitute (Biotene Dry Mouth) 1 adin PRN Q15MIN PRN PO DRY MOUTH Last administered on 12/17/16 13:39; Start 12/16/16 at 18:00 Active Scripts Active Reported Omeprazole 40 Mg Capsule.dr 40 Mg PO DAILY Artificial Tears (Dextran 70/Hypromellose) 1 Each Droperette 1 Each OU DAILY Artificial Tears (Dextran 70/Hypromellose) 1 Each Droperette 1 Each OU PRN QHS PRN Arthritis Pain (Acetaminophen) 650 Mg Tablet.er 650 Mg PO DAILY Metoprolol Succinate ( Xl ) (Metoprolol Succinate) 25 Mg Tab.er.24h 12.5 Mg PO BID Metformin Hcl 1,000 Mg Tablet 1,000 Mg PO BID Lisinopril 5 Mg Tablet 5 Mg PO DAILY Ferrous Sulfate 325 Mg Tablet 325 Mg PO BID Geodon (Ziprasidone Hcl) 40 Mg Capsule 40 Mg PO BID Give with food Oxcarbazepine 300 Mg Tablet 300 Mg PO BID Magnesium Oxide 400 Mg Tablet 400 Mg PO TID Namenda (Memantine Hcl) 10 Mg Tablet 10 Mg PO BID Lipitor (Atorvastatin Calcium) 80 Mg Tablet 80 Mg PO QHS Ropinirole Hcl 0.5 Mg Tablet 0.5 Mg PO TID Polyethylene Glycol 3350 17 Gm Powd.pack 17 Gm PO BID Oxybutynin Chloride 5 Mg Tablet 2.5 Mg PO DAILY Milk Of Magnesia (Magnesium Hydroxide) 2,400 Mg/10 Ml Oral.susp 2,400 Mg PO PRN DAILY PRN Lamotrigine 200 Mg Tab.er.24 200 Mg PO HS Docusate Sodium 100 Mg Tablet 200 Mg PO PRN HS PRN Restasis (Cyclosporine) 1 Each Droperette 1 Drop OU BID Citalopram Hbr (Citalopram Hydrobromide) 20 Mg Tablet 20 Mg PO HS Calcitrate + Vit D Caplet (Calcium Citrate/Vitamin D3) 1 Each Tablet 1 Tab PO DAILY Benztropine Mesylate 2 Mg Tablet 2 Mg PO BID Acetaminophen 500 Mg Tablet 650 Mg PO PRN Q6HRS PRN MAXIMUM DOSE OF ACETAMINIOPHEN IS 4,000 MG IN 24 HOURS FROM ALL SOURCES FOR ADULTS. LAST DOSE GIVEN: NOT GIVEN THIS ADMISSION NEXT DOSE DUE: DATE: TODAY TIME: IF NEEDED Diagnosis: Problems: (1) Anxiety disorder (2) Impulse control disorder (3) Psychosis, atypical (4) Schizoaffective disorder, chronic condition with acute exacerbation (5) Healthcare-associated pneumonia DONNELL VELASQUEZ MD Dec 17, 2016 22:09
[2016-12-18 06:34] VITALS: BP 155/71
[2016-12-18] MEDS: ACETAMINOPHEN 650 MG TABLET.ER PO SCH (07:24)
[2016-12-18] MEDS: ARIPIPRAZOLE 5 MG TABLET PO SCH (07:24)
[2016-12-18] MEDS: MAGNESIUM OXIDE 400 MG TABLET PO SCH ×3 (07:24→20:12)
[2016-12-18] MEDS: POLYETHYLENE GLYCOL 3350 17 GM PACKET. PO SCH ×2 (07:24→20:12)
[2016-12-18] MEDS: CYCLOSPORINE 0.05% OPTH DROPERETTE. OU SCH ×2 (07:25→20:08)
[2016-12-18] MEDS: METFORMIN 500 MG TABLET. PO SCH ×2 (07:25→16:30)
[2016-12-18] MEDS: CALCIUM CARB/VIT D3 500/200 TABLET PO SCH (07:25)
[2016-12-18] MEDS: FERROUS SULFATE 325 MG TABLET PO SCH ×2 (07:25→20:09)
[2016-12-18] MEDS: PANTOPRAZOLE 40 MG TABLET. PO SCH (07:25)
[2016-12-18] MEDS: LISINOPRIL 5 MG TABLET. PO SCH (07:25)
[2016-12-18] MEDS: MEMANTINE 10 MG TABLET. PO SCH ×2 (07:25→20:11)
[2016-12-18] MEDS: rOPINIRole 0.5 MG TABLET. PO SCH ×3 (07:25→20:11)
[2016-12-18] MEDS: BENZTROPINE MESYLATE 1 MG TABLET PO SCH ×2 (07:27→20:09)
[2016-12-18] MEDS: OXYBUTYNIN CHLORIDE 5 MG TABLET PO SCH (07:27)
[2016-12-18] MEDS: METOPROLOL TART IMMED RELEASE 25 MG TABLET PO SCH ×2 (07:27→20:11)
[2016-12-18] MEDS: POLYVINYL ALCOHOL 1.4% OPHTH SOLUTION 15ML BOTTLE. OU SCH (07:28)
[2016-12-18 15:55] VITALS: BP 146/78
[2016-12-18] MEDS: CITALOPRAM 20 MG TABLET. PO SCH (20:09)
[2016-12-18] MEDS: DIVALPROEX ER 250 MG TAB.ER.24H. PO SCH (20:09)
[2016-12-18] MEDS: DIVALPROEX ER 500 MG TAB.ER.24H PO SCH (20:09)
[2016-12-18] MEDS: traZODone 100 MG TABLET. PO SCH (20:11)
[2016-12-18] MEDS: ATORVASTATIN CALCIUM 20 MG TABLET PO SCH (20:11)
--- NOTE | 2016-12-18 20:40 | PN ---
DATE: 12/16/2016 This is a late entry for 12/16/2016 covers elements not covered in my initial note. SUBJECTIVE: The patient is doing better. Hand tremors a better, refused lunch. Complains of mouth hurting. I stood with her for supper and fed her whole can of ____ and she enjoys the chocolate flavor. We will start Biotene for mouthwash. She is still slightly dehydrated. REVIEW OF SYSTEMS: Ambulation impaired, impaired appetite. No CV, , pulmonary, eye system symptoms on review. MENTAL STATUS EXAM: Reasonably oriented. Speech coherent, less pressured. Abstraction fair, less psychotic. No active suicidal or homicidal ideation. Attention span short. Language function intact. IMPRESSION: Unchanged. PLAN: Continue current psychotropics mentioned in my initial note. Adjust further as clinically indicated. MAN Gracia VELASQUEZ MD DR: JUSTIN/pattie JOB#: [id number] / [id number]
--- NOTE | 2016-12-18 20:42 | PN ---
DATE: 12/17/2016 PSYCHIATRIC PROGRESS NOTE This is a late entry for 12/17/2016 covers elements not covered in my initial note. SUBJECTIVE: The patient is doing better on 12/17/2016 tremors are better. She is using Biotene mouth is better. Appetite is still poor and I again federal a whole can of Boost chocolate flavored. No CV, , eye, ENT system symptoms on review other than the mouth discomfort. Ambulation impaired in a wheelchair. MENTAL STATUS EXAM: Reasonably oriented. Speech coherent, has some latency. Abstraction fair, language function intact. Mood and affect, lability is improved. LABORATORY DATA: Reviewed. IMPRESSION: Unchanged from initial note. PLAN: Continue psychotropics mentioned in my initial note. Follow labs level. Adjust as clinically indicated. Trileptal was stopped. MAN Gracia VELASQUEZ MD DR: JUSTIN/pattie JOB#: [id number] / [id number]
--- NOTE | 2016-12-18 20:52 | PDOC ---
Exam Adrian Demential Exam: Adrian Note: Please also refer to the separate dictated note~for this date of service dictated separately.~Patient seen individually. Discussed the patient with Nursing staff reviewed the chart.~Reviewed interim history and current functioning. Reviewed vital signs,~Labs/ Radiology~and current medications noted below. Continue current treatment with the changes noted in the dictated addendum note Assessment: Vital Signs: Vital Signs Date Time Temp Pulse Resp B/P Pulse Ox O2 Delivery O2 Flow Rate FiO2 12/18/16 20:11 65 146/78 12/18/16 15:55 97.5 17 95 12/17/16 06:13 Room Air I&O Intake and Output 12/18/16 07:00 Intake Total 960 ml Balance 960 ml Intake Oral 960 ml Labs: Laboratory Tests Test 12/18/16 08:00 12/18/16 11:10 12/18/16 16:17 12/18/16 19:41 Glucose (Fingerstick) 87mg/dL (70-99) 110mg/dL (70-99) H 80mg/dL (70-99) 96mg/dL (70-99) Current Medications: Meds: Current Medications Acetaminophen (Tylenol) 650 mg PRN Q6HRS PRN PO PAIN / TEMP; Start 12/06/16 at 20:15; Status Cancel Multi-Ingredient Ointment (Analgesic [place]) 1 dain PRN QID PRN TP MUSCLE PAIN; Start 12/06/16 at 20:15 Al Hydroxide/Mg Hydroxide (Mylanta Plus Xs) 15 ml PRN AFTMEALHC PRN PO DYSPEPSIA; Start 12/06/16 at 20:15 Magnesium Hydroxide (Milk Of Magnesia) 2,400 mg PRN QHS PRN PO CONSTIPATION; Start 12/06/16 at 20:15 Citalopram Hydrobromide (Celexa) 20 mg HS PO Last administered on 12/18/16 20: 09; Start 12/06/16 at 21:00 Memantine (Namenda) 10 mg BID PO Last administered on 12/18/16 20:11; Start at 21:00 Oxcarbazepine (Trileptal) 300 mg BID PO Last administered on 12/13/16 08:33; Start 12/06/16 at 21:00; Stop 12/13/16 at 18:38; Status DC Ziprasidone (Geodon) 40 mg BIDWMEALS PO Last administered on 12/11/16 16:51; Start 12/06/16 at 21:00; Stop 12/12/16 at 05:19; Status DC Lamotrigine (LaMICtal) 200 mg QHS PO ; Start 12/06/16 at 21:30; Status Cancel Non-Formulary Medication 1 ea QHS PO ; Start 12/07/16 at 21:00; Status Cancel Lamotrigine (LaMICtal) 100 mg BID PO Last administered on 12/07/16 08:37; Start 12/06/16 at 22:15; Stop 12/07/16 at 18:21; Status DC Atorvastatin Calcium (Lipitor) 80 mg QHS PO Last administered on 12/18/16 20:11 ; Start 12/06/16 at 22:00 Metformin HCl (Glucophage) 1,000 mg BIDWMEALS PO Last administered on 12/18/16 16:30; Start 12/07/16 at 08:00 Hydroxyzine HCl (Atarax) 50 mg PRN Q2HR PRN PO PSYCHOSIS Last administered on 01:55; Start 12/06/16 at 22:00 Olanzapine (Zyprexa Zydis) 5 mg PRN Q2HR PRN PO PSYCHOSIS Last administered on 12/15/16 10:09; Start 12/06/16 at 22:00 Acetaminophen (Tylenol) 650 mg PRN Q6HRS PRN PO fever/pain; Start 12/07/16 at 06:00 Acetaminophen (Tylenol Arthritis) 650 mg DAILY PO Last administered on 07:24; Start 12/07/16 at 09:00 Cyclosporine (Restasis) 1 drop BID OU Last administered on 12/18/16 20:08; Start 12/07/16 at 09:00 Ferrous Sulfate (Feosol) 325 mg BID PO Last administered on 12/18/16 20:09; Start 12/07/16 at 09:00 Lisinopril (Prinivil) 5 mg DAILY PO Last administered on 12/18/16 07:25; Start 12/07/16 at 09:00 Magnesium Oxide (Magnesium Oxide) 400 mg TID PO Last administered on 12/18/16 20:12; Start 12/07/16 at 09:00 Metoprolol Tartrate (Lopressor) 12.5 mg BID PO Last administered on 12/18/16 20 :11; Start 12/07/16 at 09:00 Oxybutynin Chloride (Ditropan) 2.5 mg DAILY PO Last administered on 12/18/16 07 :27; Start 12/07/16 at 09:00 Polyethylene Glycol (miraLAX) 17 gm BID PO Last administered on 12/18/16 20:12 ; Start 12/07/16 at 09:00 Ropinirole HCl (Requip) 0.5 mg TID PO Last administered on 12/18/16 20:11; Start 12/07/16 at 09:00 Benztropine Mesylate (Cogentin) 2 mg BID PO Last administered on 12/18/16 20:09 ; Start 12/07/16 at 09:00 Calcium/Vitamin D (Oscal D 500mg/ 200uts) 1 tab DAILY PO Last administered on 07:25; Start 12/07/16 at 09:00 Artificial Tears (Artificial Tears) 1 drop DAILY OU Last administered on 07:28; Start 12/07/16 at 09:00 Non-Formulary Medication 1 each PRN QHS PRN OU DRY EYE; Start 12/07/16 at 06:00 ; Status UNV Docusate Sodium (Colace) 200 mg PRN QHS PRN PO CONSTIPATION; Start 12/07/16 at 06:15 Non-Formulary Medication 2,400 mg PRN DAILY PRN PO CONSTIPATION; Start at 06:00; Status UNV Pantoprazole Sodium (Protonix) 40 mg DAILYAC PO Last administered on 12/18/16 07:25; Start 12/07/16 at 07:30 Trazodone HCl (Desyrel) 100 mg 1X ONCE PO Last administered on 12/07/16 06:18 ; Start 12/07/16 at 06:30; Stop 12/07/16 at 06:31; Status DC Trazodone HCl (Desyrel) 100 mg PRN QHS PRN PO INSOMNIA; Start 12/07/16 at 06:00 Divalproex Sodium (Depakote Er) 500 mg QHS PO Last administered on 12/11/16 20 :48; Start 12/07/16 at 21:00; Stop 12/12/16 at 13:16; Status DC Trazodone HCl (Desyrel) 100 mg QHS PO Last administered on 12/18/16 20:11; Start 12/07/16 at 21:00 Divalproex Sodium (Depakote Er) 500 mg HS PO Last administered on 12/18/16 20: 09; Start 12/12/16 at 21:00 Divalproex Sodium (Depakote Er) 250 mg HS PO Last administered on 12/18/16 20: 09; Start 12/12/16 at 21:00 Quetiapine Fumarate (SEROquel) 50 mg HS PO Last administered on 12/13/16 21:42 ; Start 12/12/16 at 21:00; Stop 12/14/16 at 18:24; Status DC Aripiprazole (Abilify) 5 mg DAILY PO Last administered on 12/18/16 07:24; Start 12/15/16 at 09:00 Saliva Substitute (Biotene Dry Mouth) 1 dain PRN Q15MIN PRN PO DRY MOUTH Last administered on 12/17/16 13:39; Start 12/16/16 at 18:00 Active Scripts Active Reported Omeprazole 40 Mg Capsule.dr 40 Mg PO DAILY Artificial Tears (Dextran 70/Hypromellose) 1 Each Droperette 1 Each OU DAILY Artificial Tears (Dextran 70/Hypromellose) 1 Each Droperette 1 Each OU PRN QHS PRN Arthritis Pain (Acetaminophen) 650 Mg Tablet.er 650 Mg PO DAILY Metoprolol Succinate ( Xl ) (Metoprolol Succinate) 25 Mg Tab.er.24h 12.5 Mg PO BID Metformin Hcl 1,000 Mg Tablet 1,000 Mg PO BID Lisinopril 5 Mg Tablet 5 Mg PO DAILY Ferrous Sulfate 325 Mg Tablet 325 Mg PO BID Geodon (Ziprasidone Hcl) 40 Mg Capsule 40 Mg PO BID Give with food Oxcarbazepine 300 Mg Tablet 300 Mg PO BID Magnesium Oxide 400 Mg Tablet 400 Mg PO TID Namenda (Memantine Hcl) 10 Mg Tablet 10 Mg PO BID Lipitor (Atorvastatin Calcium) 80 Mg Tablet 80 Mg PO QHS Ropinirole Hcl 0.5 Mg Tablet 0.5 Mg PO TID Polyethylene Glycol 3350 17 Gm Powd.pack 17 Gm PO BID Oxybutynin Chloride 5 Mg Tablet 2.5 Mg PO DAILY Milk Of Magnesia (Magnesium Hydroxide) 2,400 Mg/10 Ml Oral.susp 2,400 Mg PO PRN DAILY PRN Lamotrigine 200 Mg Tab.er.24 200 Mg PO HS Docusate Sodium 100 Mg Tablet 200 Mg PO PRN HS PRN Restasis (Cyclosporine) 1 Each Droperette 1 Drop OU BID Citalopram Hbr (Citalopram Hydrobromide) 20 Mg Tablet 20 Mg PO HS Calcitrate + Vit D Caplet (Calcium Citrate/Vitamin D3) 1 Each Tablet 1 Tab PO DAILY Benztropine Mesylate 2 Mg Tablet 2 Mg PO BID Acetaminophen 500 Mg Tablet 650 Mg PO PRN Q6HRS PRN MAXIMUM DOSE OF ACETAMINIOPHEN IS 4,000 MG IN 24 HOURS FROM ALL SOURCES FOR ADULTS. LAST DOSE GIVEN: NOT GIVEN THIS ADMISSION NEXT DOSE DUE: DATE: TODAY TIME: IF NEEDED Diagnosis: Problems: (1) Anxiety disorder (2) Impulse control disorder (3) Psychosis, atypical (4) Schizoaffective disorder, chronic condition with acute exacerbation (5) Healthcare-associated pneumonia DONNELL VELASQUEZ MD Dec 18, 2016 20:52
[2016-12-19 06:57] VITALS: BP 158/73
[2016-12-19] MEDS: ARIPIPRAZOLE 5 MG TABLET PO SCH (08:23)
[2016-12-19] MEDS: ACETAMINOPHEN 650 MG TABLET.ER PO SCH (08:23)
[2016-12-19] MEDS: BENZTROPINE MESYLATE 1 MG TABLET PO SCH ×2 (08:23→19:17)
[2016-12-19] MEDS: METFORMIN 500 MG TABLET. PO SCH ×2 (08:24→16:11)
[2016-12-19] MEDS: PANTOPRAZOLE 40 MG TABLET. PO SCH (08:24)
[2016-12-19] MEDS: LISINOPRIL 5 MG TABLET. PO SCH (08:24)
[2016-12-19] MEDS: OXYBUTYNIN CHLORIDE 5 MG TABLET PO SCH (08:25)
[2016-12-19] MEDS: MEMANTINE 10 MG TABLET. PO SCH ×2 (08:25→19:18)
[2016-12-19] MEDS: FERROUS SULFATE 325 MG TABLET PO SCH ×2 (08:25→19:17)
[2016-12-19] MEDS: CYCLOSPORINE 0.05% OPTH DROPERETTE. OU SCH ×2 (08:25→21:00)
[2016-12-19] MEDS: METOPROLOL TART IMMED RELEASE 25 MG TABLET PO SCH ×2 (08:25→19:19)
[2016-12-19] MEDS: MAGNESIUM OXIDE 400 MG TABLET PO SCH ×3 (08:25→19:18)
[2016-12-19] MEDS: CALCIUM CARB/VIT D3 500/200 TABLET PO SCH (08:26)
[2016-12-19] MEDS: POLYETHYLENE GLYCOL 3350 17 GM PACKET. PO SCH ×2 (08:26→19:17)
[2016-12-19] MEDS: rOPINIRole 0.5 MG TABLET. PO SCH ×3 (08:26→19:17)
[2016-12-19] MEDS: POLYVINYL ALCOHOL 1.4% OPHTH SOLUTION 15ML BOTTLE. OU SCH (08:28)
[2016-12-19 10:53] LABS: BASO # 0.1 x10^3/uL (0.0-0.2); BASO % 1 % (0-3); EOS # 0.1 x10^3/uL (0.0-0.7); EOS % 1 % (0-3); HEMOGLOBIN 11.2 g/dL (12.0-15.5); LYMPH # 1.8 x10^3/uL (1.0-4.8); LYMPH % 15 % (24-48); MEAN CORPUSCULAR HEMOGLOBIN 28 pg (25-35); MEAN CORPUSCULAR HGB CONC 32 g/dL (31-37); MEAN CORPUSCULAR VOLUME 89 fL (79-100); MONO # 0.6 x10^3/uL (0.0-1.1); MONO % 6 % (0-9); NEUT # 8.8 x10^3uL (1.8-7.7); NEUT % 77 % (31-73); PLATELET COUNT 370 x10^3/uL (140-400); RED BLOOD COUNT 3.94 x10^6/uL (3.50-5.40); RED CELL DISTRIBUTION WIDTH 15.5 % (11.5-14.5); WHITE BLOOD COUNT 11.4 x10^3/uL (4.0-11.0)
[2016-12-19 11:10] LABS: ALBUMIN 3.2 g/dL (3.4-5.0); ALBUMIN/GLOBULIN RATIO 0.8 (1.0-1.7); CALCIUM 9.3 mg/dL (8.5-10.1); CREATININE 0.7 mg/dL (0.6-1.0); GFR 80.9; POTASSIUM 4.6 mmol/L (3.5-5.1); TOTAL BILIRUBIN 0.2 mg/dL (0.2-1.0); TOTAL PROTEIN 7.3 g/dL (6.4-8.2)
[2016-12-19 16:57] VITALS: BP 123/63
[2016-12-19] MEDS: traZODone 100 MG TABLET. PO SCH (19:17)
[2016-12-19] MEDS: DIVALPROEX ER 250 MG TAB.ER.24H. PO SCH (19:18)
[2016-12-19] MEDS: CITALOPRAM 20 MG TABLET. PO SCH (19:18)
[2016-12-19] MEDS: DIVALPROEX ER 500 MG TAB.ER.24H PO SCH (19:18)
[2016-12-19] MEDS: ATORVASTATIN CALCIUM 20 MG TABLET PO SCH (19:19)
--- NOTE | 2016-12-19 21:18 | PDOC ---
Exam Adrian Demential Exam: Adrian Note: Please also refer to the separate dictated note~for this date of service dictated separately.~Patient seen individually. Discussed the patient with Nursing staff reviewed the chart.~Reviewed interim history and current functioning. Reviewed vital signs,~Labs/ Radiology~and current medications noted below. Continue current treatment with the changes noted in the dictated addendum note Assessment: Vital Signs: Vital Signs Date Time Temp Pulse Resp B/P Pulse Ox O2 Delivery O2 Flow Rate FiO2 12/19/16 19:19 74 123/63 12/19/16 16:57 96.7 18 94 12/17/16 06:13 Room Air I&O Intake and Output 12/19/16 07:00 Intake Total 838 ml Balance 838 ml Intake Oral 838 ml # Bowel Movements 1 Labs: Laboratory Tests Test 12/19/16 07:12 12/19/16 10:31 12/19/16 11:40 12/19/16 17:05 Glucose (Fingerstick) 96mg/dL (70-99) 102mg/dL (70-99) H 89mg/dL (70-99) White Blood Count 11.4x10^3/uL (4.0-11.0) H Red Blood Count 3.94x10^6/uL (3.50-5.40) Hemoglobin 11.2g/dL (12.0-15.5) L Hematocrit 35.0% (36.0-47.0) L Mean Corpuscular Volume 89fL (79-100) Mean Corpuscular Hemoglobin 28pg (25-35) Mean Corpuscular Hemoglobin Concent 32g/dL (31-37) Red Cell Distribution Width 15.5% (11.5-14.5) H Platelet Count 370x10^3/uL (140-400) Neutrophils (%) (Auto) 77% (31-73) H Lymphocytes (%) (Auto) 15% (24-48) L Monocytes (%) (Auto) 6% (0-9) Eosinophils (%) (Auto) 1% (0-3) Basophils (%) (Auto) 1% (0-3) Neutrophils # (Auto) 8.8x10^3uL (1.8-7.7) H Lymphocytes # (Auto) 1.8x10^3/uL (1.0-4.8) Monocytes # (Auto) 0.6x10^3/uL (0.0-1.1) Eosinophils # (Auto) 0.1x10^3/uL (0.0-0.7) Basophils # (Auto) 0.1x10^3/uL (0.0-0.2) Sodium Level 147mmol/L (136-145) H Potassium Level 4.6mmol/L (3.5-5.1) Chloride Level 107mmol/L (98-107) Carbon Dioxide Level 30mmol/L (21-32) Anion Gap 10 (6-14) Blood Urea Nitrogen 31mg/dL (7-20) H Creatinine 0.7mg/dL (0.6-1.0) Estimated GFR (Cockcroft-Gault) 80.9 BUN/Creatinine Ratio 44 (6-20) H Glucose Level 102mg/dL (70-99) H Calcium Level 9.3mg/dL (8.5-10.1) Total Bilirubin 0.2mg/dL (0.2-1.0) Aspartate Amino Transferase (AST) 20U/L (15-37) Alanine Aminotransferase (ALT) 18U/L (14-59) Alkaline Phosphatase 140U/L (46-116) H Total Protein 7.3g/dL (6.4-8.2) Albumin 3.2g/dL (3.4-5.0) L Albumin/Globulin Ratio 0.8 (1.0-1.7) L Test 12/19/16 19:10 Glucose (Fingerstick) 92mg/dL (70-99) Current Medications: Meds: Current Medications Acetaminophen (Tylenol) 650 mg PRN Q6HRS PRN PO PAIN / TEMP; Start 12/06/16 at 20:15; Status Cancel Multi-Ingredient Ointment (Analgesic [place]) 1 dain PRN QID PRN TP MUSCLE PAIN; Start 12/06/16 at 20:15 Al Hydroxide/Mg Hydroxide (Mylanta Plus Xs) 15 ml PRN AFTMEALHC PRN PO DYSPEPSIA; Start 12/06/16 at 20:15 Magnesium Hydroxide (Milk Of Magnesia) 2,400 mg PRN QHS PRN PO CONSTIPATION; Start 12/06/16 at 20:15 Citalopram Hydrobromide (Celexa) 20 mg HS PO Last administered on 12/19/16 19: 18; Start 12/06/16 at 21:00 Memantine (Namenda) 10 mg BID PO Last administered on 12/19/16 19:18; Start at 21:00 Oxcarbazepine (Trileptal) 300 mg BID PO Last administered on 12/13/16 08:33; Start 12/06/16 at 21:00; Stop 12/13/16 at 18:38; Status DC Ziprasidone (Geodon) 40 mg BIDWMEALS PO Last administered on 12/11/16 16:51; Start 12/06/16 at 21:00; Stop 12/12/16 at 05:19; Status DC Lamotrigine (LaMICtal) 200 mg QHS PO ; Start 12/06/16 at 21:30; Status Cancel Non-Formulary Medication 1 ea QHS PO ; Start 12/07/16 at 21:00; Status Cancel Lamotrigine (LaMICtal) 100 mg BID PO Last administered on 12/07/16 08:37; Start 12/06/16 at 22:15; Stop 12/07/16 at 18:21; Status DC Atorvastatin Calcium (Lipitor) 80 mg QHS PO Last administered on 12/19/16 19:19 ; Start 12/06/16 at 22:00 Metformin HCl (Glucophage) 1,000 mg BIDWMEALS PO Last administered on 12/19/16 16:11; Start 12/07/16 at 08:00 Hydroxyzine HCl (Atarax) 50 mg PRN Q2HR PRN PO PSYCHOSIS Last administered on 01:55; Start 12/06/16 at 22:00 Olanzapine (Zyprexa Zydis) 5 mg PRN Q2HR PRN PO PSYCHOSIS Last administered on 12/15/16 10:09; Start 12/06/16 at 22:00 Acetaminophen (Tylenol) 650 mg PRN Q6HRS PRN PO fever/pain; Start 12/07/16 at 06:00 Acetaminophen (Tylenol Arthritis) 650 mg DAILY PO Last administered on 08:23; Start 12/07/16 at 09:00 Cyclosporine (Restasis) 1 drop BID OU Last administered on 12/19/16 08:25; Start 12/07/16 at 09:00 Ferrous Sulfate (Feosol) 325 mg BID PO Last administered on 12/19/16 19:17; Start 12/07/16 at 09:00 Lisinopril (Prinivil) 5 mg DAILY PO Last administered on 12/19/16 08:24; Start 12/07/16 at 09:00 Magnesium Oxide (Magnesium Oxide) 400 mg TID PO Last administered on 12/19/16 19:18; Start 12/07/16 at 09:00 Metoprolol Tartrate (Lopressor) 12.5 mg BID PO Last administered on 12/19/16 19 :19; Start 12/07/16 at 09:00 Oxybutynin Chloride (Ditropan) 2.5 mg DAILY PO Last administered on 12/19/16 08 :25; Start 12/07/16 at 09:00 Polyethylene Glycol (miraLAX) 17 gm BID PO Last administered on 12/19/16 19:17 ; Start 12/07/16 at 09:00 Ropinirole HCl (Requip) 0.5 mg TID PO Last administered on 12/19/16 19:17; Start 12/07/16 at 09:00 Benztropine Mesylate (Cogentin) 2 mg BID PO Last administered on 12/19/16 19:17 ; Start 12/07/16 at 09:00 Calcium/Vitamin D (Oscal D 500mg/ 200uts) 1 tab DAILY PO Last administered on 08:26; Start 12/07/16 at 09:00 Artificial Tears (Artificial Tears) 1 drop DAILY OU Last administered on 08:28; Start 12/07/16 at 09:00 Non-Formulary Medication 1 each PRN QHS PRN OU DRY EYE; Start 12/07/16 at 06:00 ; Status UNV Docusate Sodium (Colace) 200 mg PRN QHS PRN PO CONSTIPATION; Start 12/07/16 at 06:15 Non-Formulary Medication 2,400 mg PRN DAILY PRN PO CONSTIPATION; Start at 06:00; Status UNV Pantoprazole Sodium (Protonix) 40 mg DAILYAC PO Last administered on 12/19/16 08:24; Start 12/07/16 at 07:30 Trazodone HCl (Desyrel) 100 mg 1X ONCE PO Last administered on 12/07/16 06:18 ; Start 12/07/16 at 06:30; Stop 12/07/16 at 06:31; Status DC Trazodone HCl (Desyrel) 100 mg PRN QHS PRN PO INSOMNIA; Start 12/07/16 at 06:00 Divalproex Sodium (Depakote Er) 500 mg QHS PO Last administered on 12/11/16 20 :48; Start 12/07/16 at 21:00; Stop 12/12/16 at 13:16; Status DC Trazodone HCl (Desyrel) 100 mg QHS PO Last administered on 12/19/16 19:17; Start 12/07/16 at 21:00 Divalproex Sodium (Depakote Er) 500 mg HS PO Last administered on 12/19/16 19: 18; Start 12/12/16 at 21:00 Divalproex Sodium (Depakote Er) 250 mg HS PO Last administered on 12/19/16 19: 18; Start 12/12/16 at 21:00 Quetiapine Fumarate (SEROquel) 50 mg HS PO Last administered on 12/13/16 21:42 ; Start 12/12/16 at 21:00; Stop 12/14/16 at 18:24; Status DC Aripiprazole (Abilify) 5 mg DAILY PO Last administered on 12/19/16 08:23; Start 12/15/16 at 09:00 Saliva Substitute (Biotene Dry Mouth) 1 dain PRN Q15MIN PRN PO DRY MOUTH Last administered on 12/17/16 13:39; Start 12/16/16 at 18:00 Active Scripts Active Reported Omeprazole 40 Mg Capsule.dr 40 Mg PO DAILY Artificial Tears (Dextran 70/Hypromellose) 1 Each Droperette 1 Each OU DAILY Artificial Tears (Dextran 70/Hypromellose) 1 Each Droperette 1 Each OU PRN QHS PRN Arthritis Pain (Acetaminophen) 650 Mg Tablet.er 650 Mg PO DAILY Metoprolol Succinate ( Xl ) (Metoprolol Succinate) 25 Mg Tab.er.24h 12.5 Mg PO BID Metformin Hcl 1,000 Mg Tablet 1,000 Mg PO BID Lisinopril 5 Mg Tablet 5 Mg PO DAILY Ferrous Sulfate 325 Mg Tablet 325 Mg PO BID Geodon (Ziprasidone Hcl) 40 Mg Capsule 40 Mg PO BID Give with food Oxcarbazepine 300 Mg Tablet 300 Mg PO BID Magnesium Oxide 400 Mg Tablet 400 Mg PO TID Namenda (Memantine Hcl) 10 Mg Tablet 10 Mg PO BID Lipitor (Atorvastatin Calcium) 80 Mg Tablet 80 Mg PO QHS Ropinirole Hcl 0.5 Mg Tablet 0.5 Mg PO TID Polyethylene Glycol 3350 17 Gm Powd.pack 17 Gm PO BID Oxybutynin Chloride 5 Mg Tablet 2.5 Mg PO DAILY Milk Of Magnesia (Magnesium Hydroxide) 2,400 Mg/10 Ml Oral.susp 2,400 Mg PO PRN DAILY PRN Lamotrigine 200 Mg Tab.er.24 200 Mg PO HS Docusate Sodium 100 Mg Tablet 200 Mg PO PRN HS PRN Restasis (Cyclosporine) 1 Each Droperette 1 Drop OU BID Citalopram Hbr (Citalopram Hydrobromide) 20 Mg Tablet 20 Mg PO HS Calcitrate + Vit D Caplet (Calcium Citrate/Vitamin D3) 1 Each Tablet 1 Tab PO DAILY Benztropine Mesylate 2 Mg Tablet 2 Mg PO BID Acetaminophen 500 Mg Tablet 650 Mg PO PRN Q6HRS PRN MAXIMUM DOSE OF ACETAMINIOPHEN IS 4,000 MG IN 24 HOURS FROM ALL SOURCES FOR ADULTS. LAST DOSE GIVEN: NOT GIVEN THIS ADMISSION NEXT DOSE DUE: DATE: TODAY TIME: IF NEEDED Diagnosis: Problems: (1) Anxiety disorder (2) Impulse control disorder (3) Psychosis, atypical (4) Schizoaffective disorder, chronic condition with acute exacerbation (5) Healthcare-associated pneumonia DONNELL VELASQUEZ MD Dec 19, 2016 21:18
--- NOTE | 2016-12-19 23:44 | PN ---
DATE: 12/18/2016 PSYCHIATRIC PROGRESS NOTE This is a late entry for 12/18/2016, covers elements not covered in my initial note. SUBJECTIVE: Overall, per nursing report, the patient has been cooperative on the unit, less tremulous, holding things better in her hand. I fed her Boost again at suppertime. REVIEW OF SYSTEMS: Ambulation impaired in her wheelchair. No CV, , pulmonary, eye system symptoms on review. MENTAL STATUS EXAM: Reasonably oriented. Speech coherent, abstraction fair, computation impaired, language function intact, attention span short, mood and affect less labile. LABORATORY DATA: Reviewed. IMPRESSION: Schizoaffective disorder, bipolar type, mixed with psychotic features, in partial remission. Rest unchanged. PLAN: Continue Namenda 10 mg b.i.d., Celexa 20 mg a day, Atarax p.r.n., Abilify 5 mg a day, Depakote ER 750 mg at bedtime, check her level, may need to adjust this, Cogentin 2 mg b.i.d. and trazodone p.r.n. DONNELL VELASQUEZ MD DR: JUSTIN/pattie JOB#: [id number] / [id number]
[2016-12-20 06:07] VITALS: BP 154/63
[2016-12-20 07:08] LABS: VAL ACID 74 mcg/mL (50-100)
[2016-12-20] MEDS: ACETAMINOPHEN 650 MG TABLET.ER PO SCH (08:10)
[2016-12-20] MEDS: CYCLOSPORINE 0.05% OPTH DROPERETTE. OU SCH ×2 (08:10→19:37)
[2016-12-20] MEDS: BENZTROPINE MESYLATE 1 MG TABLET PO SCH ×2 (08:10→19:37)
[2016-12-20] MEDS: METFORMIN 500 MG TABLET. PO SCH ×2 (08:12→17:13)
[2016-12-20] MEDS: LISINOPRIL 5 MG TABLET. PO SCH (08:12)
[2016-12-20] MEDS: METOPROLOL TART IMMED RELEASE 25 MG TABLET PO SCH ×2 (08:13→19:36)
[2016-12-20] MEDS: PANTOPRAZOLE 40 MG TABLET. PO SCH (08:13)
[2016-12-20] MEDS: MAGNESIUM OXIDE 400 MG TABLET PO SCH ×3 (08:13→19:36)
[2016-12-20] MEDS: CALCIUM CARB/VIT D3 500/200 TABLET PO SCH (08:13)
[2016-12-20] MEDS: rOPINIRole 0.5 MG TABLET. PO SCH ×3 (08:13→19:35)
[2016-12-20] MEDS: FERROUS SULFATE 325 MG TABLET PO SCH ×2 (08:13→19:36)
[2016-12-20] MEDS: MEMANTINE 10 MG TABLET. PO SCH ×2 (08:14→19:36)
[2016-12-20] MEDS: ARIPIPRAZOLE 5 MG TABLET PO SCH (08:14)
[2016-12-20] MEDS: OXYBUTYNIN CHLORIDE 5 MG TABLET PO SCH (08:14)
[2016-12-20] MEDS: POLYVINYL ALCOHOL 1.4% OPHTH SOLUTION 15ML BOTTLE. OU SCH (08:15)
[2016-12-20] MEDS: POLYETHYLENE GLYCOL 3350 17 GM PACKET. PO SCH ×2 (08:15→19:35)
[2016-12-20 16:26] VITALS: BP 120/68
[2016-12-20] MEDS: DIVALPROEX ER 250 MG TAB.ER.24H. PO SCH (19:36)
[2016-12-20] MEDS: CITALOPRAM 20 MG TABLET. PO SCH (19:36)
[2016-12-20] MEDS: DIVALPROEX ER 500 MG TAB.ER.24H PO SCH (19:36)
[2016-12-20] MEDS: traZODone 100 MG TABLET. PO SCH (19:37)
[2016-12-20] MEDS: ATORVASTATIN CALCIUM 20 MG TABLET PO SCH (19:37)
--- NOTE | 2016-12-20 21:14 | PDOC ---
Exam Adrian Demential Exam: Adrian Note: Please also refer to the separate dictated note~for this date of service dictated separately.~Patient seen individually. Discussed the patient with Nursing staff reviewed the chart.~Reviewed interim history and current functioning. Reviewed vital signs,~Labs/ Radiology~and current medications noted below. Continue current treatment with the changes noted in the dictated addendum note Assessment: Vital Signs: Vital Signs Date Time Temp Pulse Resp B/P Pulse Ox O2 Delivery O2 Flow Rate FiO2 12/20/16 19:36 77 120/68 12/20/16 16:26 97.3 18 99 12/20/16 06:07 Room Air I&O Intake and Output 12/20/16 07:00 Intake Total 800 ml Balance 800 ml Intake Oral 800 ml # Voids 1 Labs: Laboratory Tests Test 12/20/16 06:36 12/20/16 07:16 12/20/16 11:12 12/20/16 16:26 Valproic Acid Level 74mcg/mL (50-100) Valproic Acid Last Dose Date 12/19/2016 Valproic Acid Last Dose Time 2100 Glucose (Fingerstick) 83mg/dL (70-99) 83mg/dL (70-99) 80mg/dL (70-99) Test 12/20/16 19:29 Glucose (Fingerstick) 77mg/dL (70-99) Current Medications: Meds: Current Medications Acetaminophen (Tylenol) 650 mg PRN Q6HRS PRN PO PAIN / TEMP; Start 12/06/16 at 20:15; Status Cancel Multi-Ingredient Ointment (Analgesic [place]) 1 dain PRN QID PRN TP MUSCLE PAIN; Start 12/06/16 at 20:15 Al Hydroxide/Mg Hydroxide (Mylanta Plus Xs) 15 ml PRN AFTMEALHC PRN PO DYSPEPSIA; Start 12/06/16 at 20:15 Magnesium Hydroxide (Milk Of Magnesia) 2,400 mg PRN QHS PRN PO CONSTIPATION; Start 12/06/16 at 20:15 Citalopram Hydrobromide (Celexa) 20 mg HS PO Last administered on 12/20/16 19: 36; Start 12/06/16 at 21:00 Memantine (Namenda) 10 mg BID PO Last administered on 12/20/16 19:36; Start at 21:00 Oxcarbazepine (Trileptal) 300 mg BID PO Last administered on 12/13/16 08:33; Start 12/06/16 at 21:00; Stop 12/13/16 at 18:38; Status DC Ziprasidone (Geodon) 40 mg BIDWMEALS PO Last administered on 12/11/16 16:51; Start 12/06/16 at 21:00; Stop 12/12/16 at 05:19; Status DC Lamotrigine (LaMICtal) 200 mg QHS PO ; Start 12/06/16 at 21:30; Status Cancel Non-Formulary Medication 1 ea QHS PO ; Start 12/07/16 at 21:00; Status Cancel Lamotrigine (LaMICtal) 100 mg BID PO Last administered on 12/07/16 08:37; Start 12/06/16 at 22:15; Stop 12/07/16 at 18:21; Status DC Atorvastatin Calcium (Lipitor) 80 mg QHS PO Last administered on 12/20/16 19:37 ; Start 12/06/16 at 22:00 Metformin HCl (Glucophage) 1,000 mg BIDWMEALS PO Last administered on 12/20/16 17:13; Start 12/07/16 at 08:00 Hydroxyzine HCl (Atarax) 50 mg PRN Q2HR PRN PO PSYCHOSIS Last administered on 01:55; Start 12/06/16 at 22:00 Olanzapine (Zyprexa Zydis) 5 mg PRN Q2HR PRN PO PSYCHOSIS Last administered on 12/15/16 10:09; Start 12/06/16 at 22:00 Acetaminophen (Tylenol) 650 mg PRN Q6HRS PRN PO fever/pain; Start 12/07/16 at 06:00 Acetaminophen (Tylenol Arthritis) 650 mg DAILY PO Last administered on 08:10; Start 12/07/16 at 09:00 Cyclosporine (Restasis) 1 drop BID OU Last administered on 12/20/16 19:37; Start 12/07/16 at 09:00 Ferrous Sulfate (Feosol) 325 mg BID PO Last administered on 12/20/16 19:36; Start 12/07/16 at 09:00 Lisinopril (Prinivil) 5 mg DAILY PO Last administered on 12/20/16 08:12; Start 12/07/16 at 09:00 Magnesium Oxide (Magnesium Oxide) 400 mg TID PO Last administered on 12/20/16 19:36; Start 12/07/16 at 09:00 Metoprolol Tartrate (Lopressor) 12.5 mg BID PO Last administered on 12/20/16 19 :36; Start 12/07/16 at 09:00 Oxybutynin Chloride (Ditropan) 2.5 mg DAILY PO Last administered on 12/20/16 08 :14; Start 12/07/16 at 09:00 Polyethylene Glycol (miraLAX) 17 gm BID PO Last administered on 12/20/16 19:35 ; Start 12/07/16 at 09:00 Ropinirole HCl (Requip) 0.5 mg TID PO Last administered on 12/20/16 19:35; Start 12/07/16 at 09:00 Benztropine Mesylate (Cogentin) 2 mg BID PO Last administered on 12/20/16 19:37 ; Start 12/07/16 at 09:00 Calcium/Vitamin D (Oscal D 500mg/ 200uts) 1 tab DAILY PO Last administered on 08:13; Start 12/07/16 at 09:00 Artificial Tears (Artificial Tears) 1 drop DAILY OU Last administered on 08:15; Start 12/07/16 at 09:00 Non-Formulary Medication 1 each PRN QHS PRN OU DRY EYE; Start 12/07/16 at 06:00 ; Status UNV Docusate Sodium (Colace) 200 mg PRN QHS PRN PO CONSTIPATION; Start 12/07/16 at 06:15 Non-Formulary Medication 2,400 mg PRN DAILY PRN PO CONSTIPATION; Start at 06:00; Status UNV Pantoprazole Sodium (Protonix) 40 mg DAILYAC PO Last administered on 12/20/16 08:13; Start 12/07/16 at 07:30 Trazodone HCl (Desyrel) 100 mg 1X ONCE PO Last administered on 12/07/16 06:18 ; Start 12/07/16 at 06:30; Stop 12/07/16 at 06:31; Status DC Trazodone HCl (Desyrel) 100 mg PRN QHS PRN PO INSOMNIA; Start 12/07/16 at 06:00 Divalproex Sodium (Depakote Er) 500 mg QHS PO Last administered on 12/11/16 20 :48; Start 12/07/16 at 21:00; Stop 12/12/16 at 13:16; Status DC Trazodone HCl (Desyrel) 100 mg QHS PO Last administered on 12/20/16 19:37; Start 12/07/16 at 21:00 Divalproex Sodium (Depakote Er) 500 mg HS PO Last administered on 12/20/16 19: 36; Start 12/12/16 at 21:00 Divalproex Sodium (Depakote Er) 250 mg HS PO Last administered on 12/20/16 19: 36; Start 12/12/16 at 21:00 Quetiapine Fumarate (SEROquel) 50 mg HS PO Last administered on 12/13/16 21:42 ; Start 12/12/16 at 21:00; Stop 12/14/16 at 18:24; Status DC Aripiprazole (Abilify) 5 mg DAILY PO Last administered on 12/20/16 08:14; Start 12/15/16 at 09:00 Saliva Substitute (Biotene Dry Mouth) 1 dain PRN Q15MIN PRN PO DRY MOUTH Last administered on 12/17/16 13:39; Start 12/16/16 at 18:00 Active Scripts Active Reported Omeprazole 40 Mg Capsule.dr 40 Mg PO DAILY Artificial Tears (Dextran 70/Hypromellose) 1 Each Droperette 1 Each OU DAILY Artificial Tears (Dextran 70/Hypromellose) 1 Each Droperette 1 Each OU PRN QHS PRN Arthritis Pain (Acetaminophen) 650 Mg Tablet.er 650 Mg PO DAILY Metoprolol Succinate ( Xl ) (Metoprolol Succinate) 25 Mg Tab.er.24h 12.5 Mg PO BID Metformin Hcl 1,000 Mg Tablet 1,000 Mg PO BID Lisinopril 5 Mg Tablet 5 Mg PO DAILY Ferrous Sulfate 325 Mg Tablet 325 Mg PO BID Geodon (Ziprasidone Hcl) 40 Mg Capsule 40 Mg PO BID Give with food Oxcarbazepine 300 Mg Tablet 300 Mg PO BID Magnesium Oxide 400 Mg Tablet 400 Mg PO TID Namenda (Memantine Hcl) 10 Mg Tablet 10 Mg PO BID Lipitor (Atorvastatin Calcium) 80 Mg Tablet 80 Mg PO QHS Ropinirole Hcl 0.5 Mg Tablet 0.5 Mg PO TID Polyethylene Glycol 3350 17 Gm Powd.pack 17 Gm PO BID Oxybutynin Chloride 5 Mg Tablet 2.5 Mg PO DAILY Milk Of Magnesia (Magnesium Hydroxide) 2,400 Mg/10 Ml Oral.susp 2,400 Mg PO PRN DAILY PRN Lamotrigine 200 Mg Tab.er.24 200 Mg PO HS Docusate Sodium 100 Mg Tablet 200 Mg PO PRN HS PRN Restasis (Cyclosporine) 1 Each Droperette 1 Drop OU BID Citalopram Hbr (Citalopram Hydrobromide) 20 Mg Tablet 20 Mg PO HS Calcitrate + Vit D Caplet (Calcium Citrate/Vitamin D3) 1 Each Tablet 1 Tab PO DAILY Benztropine Mesylate 2 Mg Tablet 2 Mg PO BID Acetaminophen 500 Mg Tablet 650 Mg PO PRN Q6HRS PRN MAXIMUM DOSE OF ACETAMINIOPHEN IS 4,000 MG IN 24 HOURS FROM ALL SOURCES FOR ADULTS. LAST DOSE GIVEN: NOT GIVEN THIS ADMISSION NEXT DOSE DUE: DATE: TODAY TIME: IF NEEDED Diagnosis: Problems: (1) Anxiety disorder (2) Impulse control disorder (3) Psychosis, atypical (4) Schizoaffective disorder, chronic condition with acute exacerbation (5) Healthcare-associated pneumonia DONNELL VELASQUEZ MD Dec 20, 2016 21:14
--- NOTE | 2016-12-21 03:39 | PN ---
DATE: 12/19/2016 PSYCHIATRIC PROGRESS NOTE This is a late entry for 12/19/2016, covers elements not covered in my initial note. SUBJECTIVE: The patient remains irritable, a little labile at times, poor appetite, I fed her a whole can of Boost at supper, spends much time in her room, started physical therapy. REVIEW OF SYSTEMS: Ambulation impaired, in a wheelchair, difficulty with her swallowing due to complaints of sore mouth. No CV, , eye, ENT system symptoms on review. MENTAL STATUS EXAM: Reasonably oriented. Speech coherent, has some latency, low in volume. Abstraction fair, computation impaired. Mood and affect showing improvement. LABORATORY DATA: Reviewed. IMPRESSION: Unchanged from initial note. PLAN: Continue current psychotropics. Check valproic acid level on 12/20/2016. Adjust as indicated. MAN Gracia VELASQUEZ MD DR: JUSTIN/pattie JOB#: [id number] / [id number]
[2016-12-21 05:25] VITALS: BP 151/61
[2016-12-21] MEDS: POLYETHYLENE GLYCOL 3350 17 GM PACKET. PO SCH ×2 (08:34→20:40)
[2016-12-21] MEDS: CALCIUM CARB/VIT D3 500/200 TABLET PO SCH (08:34)
[2016-12-21] MEDS: METFORMIN 500 MG TABLET. PO SCH ×2 (08:34→16:43)
[2016-12-21] MEDS: PANTOPRAZOLE 40 MG TABLET. PO SCH (08:34)
[2016-12-21] MEDS: ACETAMINOPHEN 650 MG TABLET.ER PO SCH (08:34)
[2016-12-21] MEDS: LISINOPRIL 5 MG TABLET. PO SCH (08:35)
[2016-12-21] MEDS: rOPINIRole 0.5 MG TABLET. PO SCH ×3 (08:35→20:42)
[2016-12-21] MEDS: ARIPIPRAZOLE 5 MG TABLET PO SCH (08:35)
[2016-12-21] MEDS: BENZTROPINE MESYLATE 1 MG TABLET PO SCH ×2 (08:35→20:40)
[2016-12-21] MEDS: MEMANTINE 10 MG TABLET. PO SCH ×2 (08:35→20:41)
[2016-12-21] MEDS: FERROUS SULFATE 325 MG TABLET PO SCH ×2 (08:35→20:41)
[2016-12-21] MEDS: METOPROLOL TART IMMED RELEASE 25 MG TABLET PO SCH ×2 (08:36→20:42)
[2016-12-21] MEDS: OXYBUTYNIN CHLORIDE 5 MG TABLET PO SCH (08:37)
[2016-12-21] MEDS: MAGNESIUM OXIDE 400 MG TABLET PO SCH ×3 (08:37→20:42)
[2016-12-21] MEDS: POLYVINYL ALCOHOL 1.4% OPHTH SOLUTION 15ML BOTTLE. OU SCH (08:39)
[2016-12-21] MEDS: CYCLOSPORINE 0.05% OPTH DROPERETTE. OU SCH ×2 (08:39→20:43)
[2016-12-21] MEDS: OLANZAPINE ZYDIS 5 MG TAB.RAPDIS PO PRN (15:54)
[2016-12-21] MEDS: traZODone 100 MG TABLET. PO SCH (20:40)
[2016-12-21] MEDS: DIVALPROEX ER 500 MG TAB.ER.24H PO SCH (20:41)
[2016-12-21] MEDS: DIVALPROEX ER 250 MG TAB.ER.24H. PO SCH (20:41)
[2016-12-21] MEDS: ATORVASTATIN CALCIUM 20 MG TABLET PO SCH (20:41)
[2016-12-21] MEDS: CITALOPRAM 20 MG TABLET. PO SCH (20:42)
--- NOTE | 2016-12-21 21:17 | PDOC ---
Exam Adrian Demential Exam: Adrian Note: Please also refer to the separate dictated note~for this date of service dictated separately.~Patient seen individually. Discussed the patient with Nursing staff reviewed the chart.~Reviewed interim history and current functioning. Reviewed vital signs,~Labs/ Radiology~and current medications noted below. Continue current treatment with the changes noted in the dictated addendum note Assessment: Vital Signs: Vital Signs Date Time Temp Pulse Resp B/P Pulse Ox O2 Delivery O2 Flow Rate FiO2 12/21/16 20:42 71 161/61 12/21/16 05:25 97.4 16 94 12/20/16 06:07 Room Air I&O Intake and Output 12/21/16 07:00 Intake Total 720 ml Balance 720 ml Intake Oral 720 ml # Voids 2 Labs: Laboratory Tests Test 12/21/16 07:14 12/21/16 11:43 12/21/16 16:39 12/21/16 19:16 Glucose (Fingerstick) 71mg/dL (70-99) 92mg/dL (70-99) 87mg/dL (70-99) 94mg/dL (70-99) Current Medications: Meds: Current Medications Acetaminophen (Tylenol) 650 mg PRN Q6HRS PRN PO PAIN / TEMP; Start 12/06/16 at 20:15; Status Cancel Multi-Ingredient Ointment (Analgesic [place]) 1 dain PRN QID PRN TP MUSCLE PAIN; Start 12/06/16 at 20:15 Al Hydroxide/Mg Hydroxide (Mylanta Plus Xs) 15 ml PRN AFTMEALHC PRN PO DYSPEPSIA; Start 12/06/16 at 20:15 Magnesium Hydroxide (Milk Of Magnesia) 2,400 mg PRN QHS PRN PO CONSTIPATION; Start 12/06/16 at 20:15 Citalopram Hydrobromide (Celexa) 20 mg HS PO Last administered on 12/21/16 20: 42; Start 12/06/16 at 21:00 Memantine (Namenda) 10 mg BID PO Last administered on 12/21/16 20:41; Start at 21:00 Oxcarbazepine (Trileptal) 300 mg BID PO Last administered on 12/13/16 08:33; Start 12/06/16 at 21:00; Stop 12/13/16 at 18:38; Status DC Ziprasidone (Geodon) 40 mg BIDWMEALS PO Last administered on 12/11/16 16:51; Start 12/06/16 at 21:00; Stop 12/12/16 at 05:19; Status DC Lamotrigine (LaMICtal) 200 mg QHS PO ; Start 12/06/16 at 21:30; Status Cancel Non-Formulary Medication 1 ea QHS PO ; Start 12/07/16 at 21:00; Status Cancel Lamotrigine (LaMICtal) 100 mg BID PO Last administered on 12/07/16 08:37; Start 12/06/16 at 22:15; Stop 12/07/16 at 18:21; Status DC Atorvastatin Calcium (Lipitor) 80 mg QHS PO Last administered on 12/21/16 20:41 ; Start 12/06/16 at 22:00 Metformin HCl (Glucophage) 1,000 mg BIDWMEALS PO Last administered on 12/21/16 16:43; Start 12/07/16 at 08:00 Hydroxyzine HCl (Atarax) 50 mg PRN Q2HR PRN PO PSYCHOSIS Last administered on 01:55; Start 12/06/16 at 22:00 Olanzapine (Zyprexa Zydis) 5 mg PRN Q2HR PRN PO PSYCHOSIS Last administered on 12/21/16 15:54; Start 12/06/16 at 22:00 Acetaminophen (Tylenol) 650 mg PRN Q6HRS PRN PO fever/pain; Start 12/07/16 at 06:00 Acetaminophen (Tylenol Arthritis) 650 mg DAILY PO Last administered on 08:34; Start 12/07/16 at 09:00 Cyclosporine (Restasis) 1 drop BID OU Last administered on 12/21/16 20:43; Start 12/07/16 at 09:00 Ferrous Sulfate (Feosol) 325 mg BID PO Last administered on 12/21/16 20:41; Start 12/07/16 at 09:00 Lisinopril (Prinivil) 5 mg DAILY PO Last administered on 12/21/16 08:35; Start 12/07/16 at 09:00 Magnesium Oxide (Magnesium Oxide) 400 mg TID PO Last administered on 12/21/16 20:42; Start 12/07/16 at 09:00 Metoprolol Tartrate (Lopressor) 12.5 mg BID PO Last administered on 12/21/16 20 :42; Start 12/07/16 at 09:00 Oxybutynin Chloride (Ditropan) 2.5 mg DAILY PO Last administered on 12/21/16 08 :37; Start 12/07/16 at 09:00 Polyethylene Glycol (miraLAX) 17 gm BID PO Last administered on 12/21/16 20:40 ; Start 12/07/16 at 09:00 Ropinirole HCl (Requip) 0.5 mg TID PO Last administered on 12/21/16 20:42; Start 12/07/16 at 09:00 Benztropine Mesylate (Cogentin) 2 mg BID PO Last administered on 12/21/16 20:40 ; Start 12/07/16 at 09:00 Calcium/Vitamin D (Oscal D 500mg/ 200uts) 1 tab DAILY PO Last administered on 08:34; Start 12/07/16 at 09:00 Artificial Tears (Artificial Tears) 1 drop DAILY OU Last administered on 08:39; Start 12/07/16 at 09:00 Non-Formulary Medication 1 each PRN QHS PRN OU DRY EYE; Start 12/07/16 at 06:00 ; Status UNV Docusate Sodium (Colace) 200 mg PRN QHS PRN PO CONSTIPATION; Start 12/07/16 at 06:15 Non-Formulary Medication 2,400 mg PRN DAILY PRN PO CONSTIPATION; Start at 06:00; Status UNV Pantoprazole Sodium (Protonix) 40 mg DAILYAC PO Last administered on 12/21/16 08:34; Start 12/07/16 at 07:30 Trazodone HCl (Desyrel) 100 mg 1X ONCE PO Last administered on 12/07/16 06:18 ; Start 12/07/16 at 06:30; Stop 12/07/16 at 06:31; Status DC Trazodone HCl (Desyrel) 100 mg PRN QHS PRN PO INSOMNIA; Start 12/07/16 at 06:00 Divalproex Sodium (Depakote Er) 500 mg QHS PO Last administered on 12/11/16 20 :48; Start 12/07/16 at 21:00; Stop 12/12/16 at 13:16; Status DC Trazodone HCl (Desyrel) 100 mg QHS PO Last administered on 12/21/16 20:40; Start 12/07/16 at 21:00 Divalproex Sodium (Depakote Er) 500 mg HS PO Last administered on 12/21/16 20: 41; Start 12/12/16 at 21:00 Divalproex Sodium (Depakote Er) 250 mg HS PO Last administered on 12/21/16 20: 41; Start 12/12/16 at 21:00 Quetiapine Fumarate (SEROquel) 50 mg HS PO Last administered on 12/13/16 21:42 ; Start 12/12/16 at 21:00; Stop 12/14/16 at 18:24; Status DC Aripiprazole (Abilify) 5 mg DAILY PO Last administered on 12/21/16 08:35; Start 12/15/16 at 09:00 Saliva Substitute (Biotene Dry Mouth) 1 dain PRN Q15MIN PRN PO DRY MOUTH Last administered on 12/17/16 13:39; Start 12/16/16 at 18:00 Active Scripts Active Reported Omeprazole 40 Mg Capsule.dr 40 Mg PO DAILY Artificial Tears (Dextran 70/Hypromellose) 1 Each Droperette 1 Each OU DAILY Artificial Tears (Dextran 70/Hypromellose) 1 Each Droperette 1 Each OU PRN QHS PRN Arthritis Pain (Acetaminophen) 650 Mg Tablet.er 650 Mg PO DAILY Metoprolol Succinate ( Xl ) (Metoprolol Succinate) 25 Mg Tab.er.24h 12.5 Mg PO BID Metformin Hcl 1,000 Mg Tablet 1,000 Mg PO BID Lisinopril 5 Mg Tablet 5 Mg PO DAILY Ferrous Sulfate 325 Mg Tablet 325 Mg PO BID Geodon (Ziprasidone Hcl) 40 Mg Capsule 40 Mg PO BID Give with food Oxcarbazepine 300 Mg Tablet 300 Mg PO BID Magnesium Oxide 400 Mg Tablet 400 Mg PO TID Namenda (Memantine Hcl) 10 Mg Tablet 10 Mg PO BID Lipitor (Atorvastatin Calcium) 80 Mg Tablet 80 Mg PO QHS Ropinirole Hcl 0.5 Mg Tablet 0.5 Mg PO TID Polyethylene Glycol 3350 17 Gm Powd.pack 17 Gm PO BID Oxybutynin Chloride 5 Mg Tablet 2.5 Mg PO DAILY Milk Of Magnesia (Magnesium Hydroxide) 2,400 Mg/10 Ml Oral.susp 2,400 Mg PO PRN DAILY PRN Lamotrigine 200 Mg Tab.er.24 200 Mg PO HS Docusate Sodium 100 Mg Tablet 200 Mg PO PRN HS PRN Restasis (Cyclosporine) 1 Each Droperette 1 Drop OU BID Citalopram Hbr (Citalopram Hydrobromide) 20 Mg Tablet 20 Mg PO HS Calcitrate + Vit D Caplet (Calcium Citrate/Vitamin D3) 1 Each Tablet 1 Tab PO DAILY Benztropine Mesylate 2 Mg Tablet 2 Mg PO BID Acetaminophen 500 Mg Tablet 650 Mg PO PRN Q6HRS PRN MAXIMUM DOSE OF ACETAMINIOPHEN IS 4,000 MG IN 24 HOURS FROM ALL SOURCES FOR ADULTS. LAST DOSE GIVEN: NOT GIVEN THIS ADMISSION NEXT DOSE DUE: DATE: TODAY TIME: IF NEEDED Diagnosis: Problems: (1) Anxiety disorder (2) Impulse control disorder (3) Psychosis, atypical (4) Schizoaffective disorder, chronic condition with acute exacerbation (5) Healthcare-associated pneumonia DONNELL VELASQUEZ MD Dec 21, 2016 21:17
--- NOTE | 2016-12-22 00:33 | PN ---
DATE: 12/20/2016 PSYCHIATRIC PROGRESS NOTE This is a late entry for 12/20/2016 covers elements not covered in my initial note of 12/20/2016. SUBJECTIVE: Per nursing report, the patient has been "nicer today." She has been more out of her room. Appetite is still poor and I helped feed her a can of boost, but she is very resistive to doing this. Physical therapy came to help ambulate her and she said she was too tired to try and walk. REVIEW OF SYSTEMS: Ambulation impaired in a wheelchair. No CV, , pulmonary, eye system symptoms on review. MENTAL STATUS EXAM: Reasonably oriented. Speech coherent, had some latency, low in volume. Abstraction fair, computation impaired, language function intact. Mood and affect still somewhat withdrawn, but no clear psychotic symptoms. No suicidal or homicidal ideation. LABORATORY DATA: Valproic acid level 74. IMPRESSION: Schizoaffective disorder, bipolar type, mixed with psychotic features, in partial remission. Rest diagnoses unchanged. PLAN: Continue Namenda 10 b.i.d., Celexa 20 mg a day, Atarax p.r.n., Zyprexa p.r.n., Depakote ER 750 at bedtime, trazodone 100 at bedtime, may repeat for insomnia, Cogentin 2 mg b.i.d., Abilify 5 mg a day. Adjust further as clinically indicated. MAN Gracia VELASQUEZ MD DR: JUSTIN/pattie JOB#: [id number] / [id number]
[2016-12-22 05:13] VITALS: BP 142/56
[2016-12-22] MEDS: POLYETHYLENE GLYCOL 3350 17 GM PACKET. PO SCH ×2 (08:06→19:30)
[2016-12-22] MEDS: MEMANTINE 10 MG TABLET. PO SCH ×2 (08:07→19:31)
[2016-12-22] MEDS: METFORMIN 500 MG TABLET. PO SCH ×2 (08:07→16:39)
[2016-12-22] MEDS: BENZTROPINE MESYLATE 1 MG TABLET PO SCH ×2 (08:07→19:31)
[2016-12-22] MEDS: FERROUS SULFATE 325 MG TABLET PO SCH ×2 (08:08→19:31)
[2016-12-22] MEDS: OXYBUTYNIN CHLORIDE 5 MG TABLET PO SCH (08:08)
[2016-12-22] MEDS: MAGNESIUM OXIDE 400 MG TABLET PO SCH ×3 (08:08→19:31)
[2016-12-22] MEDS: rOPINIRole 0.5 MG TABLET. PO SCH ×3 (08:08→19:32)
[2016-12-22] MEDS: METOPROLOL TART IMMED RELEASE 25 MG TABLET PO SCH ×2 (08:09→19:32)
[2016-12-22] MEDS: CALCIUM CARB/VIT D3 500/200 TABLET PO SCH (08:09)
[2016-12-22] MEDS: LISINOPRIL 5 MG TABLET. PO SCH (08:09)
[2016-12-22] MEDS: ARIPIPRAZOLE 5 MG TABLET PO SCH (08:10)
[2016-12-22] MEDS: PANTOPRAZOLE 40 MG TABLET. PO SCH (08:10)
[2016-12-22] MEDS: CYCLOSPORINE 0.05% OPTH DROPERETTE. OU SCH ×2 (08:10→19:42)
[2016-12-22] MEDS: POLYVINYL ALCOHOL 1.4% OPHTH SOLUTION 15ML BOTTLE. OU SCH (08:12)
[2016-12-22] MEDS: ACETAMINOPHEN 650 MG TABLET.ER PO SCH (08:12)
[2016-12-22] MEDS: HYDROXYZINE HCL 25 MG TABLET PO PRN (10:58)
[2016-12-22 15:53] VITALS: BP 114/61
[2016-12-22] MEDS: traZODone 100 MG TABLET. PO SCH (19:31)
[2016-12-22] MEDS: DIVALPROEX ER 250 MG TAB.ER.24H. PO SCH (19:31)
[2016-12-22] MEDS: DIVALPROEX ER 500 MG TAB.ER.24H PO SCH (19:31)
[2016-12-22] MEDS: ATORVASTATIN CALCIUM 20 MG TABLET PO SCH (19:31)
[2016-12-22] MEDS: CITALOPRAM 20 MG TABLET. PO SCH (19:42)
[2016-12-22] MEDS: ARIPIPRAZOLE 10 MG TABLET PO SCH (19:42)
--- NOTE | 2016-12-22 21:28 | PDOC ---
Exam Adrian Demential Exam: Adrian Note: Please also refer to the separate dictated note~for this date of service dictated separately.~Patient seen individually. Discussed the patient with Nursing staff reviewed the chart.~Reviewed interim history and current functioning. Reviewed vital signs,~Labs/ Radiology~and current medications noted below. Continue current treatment with the changes noted in the dictated addendum note Assessment: Vital Signs: Vital Signs Date Time Temp Pulse Resp B/P Pulse Ox O2 Delivery O2 Flow Rate FiO2 12/22/16 19:32 72 114/61 12/22/16 15:53 97.7 18 99 12/20/16 06:07 Room Air I&O Intake and Output 12/22/16 07:00 Intake Total 420 ml Balance 420 ml Intake Oral 420 ml Labs: Laboratory Tests Test 12/22/16 07:09 12/22/16 11:23 12/22/16 16:55 12/22/16 18:57 Glucose (Fingerstick) 77mg/dL (70-99) 109mg/dL (70-99) H 94mg/dL (70-99) 91mg/dL (70-99) Current Medications: Meds: Current Medications Acetaminophen (Tylenol) 650 mg PRN Q6HRS PRN PO PAIN / TEMP; Start 12/06/16 at 20:15; Status Cancel Multi-Ingredient Ointment (Analgesic [place]) 1 adin PRN QID PRN TP MUSCLE PAIN; Start 12/06/16 at 20:15 Al Hydroxide/Mg Hydroxide (Mylanta Plus Xs) 15 ml PRN AFTMEALHC PRN PO DYSPEPSIA; Start 12/06/16 at 20:15 Magnesium Hydroxide (Milk Of Magnesia) 2,400 mg PRN QHS PRN PO CONSTIPATION; Start 12/06/16 at 20:15 Citalopram Hydrobromide (Celexa) 20 mg HS PO Last administered on 12/22/16 19: 42; Start 12/06/16 at 21:00 Memantine (Namenda) 10 mg BID PO Last administered on 12/22/16 19:31; Start at 21:00 Oxcarbazepine (Trileptal) 300 mg BID PO Last administered on 12/13/16 08:33; Start 12/06/16 at 21:00; Stop 12/13/16 at 18:38; Status DC Ziprasidone (Geodon) 40 mg BIDWMEALS PO Last administered on 12/11/16 16:51; Start 12/06/16 at 21:00; Stop 12/12/16 at 05:19; Status DC Lamotrigine (LaMICtal) 200 mg QHS PO ; Start 12/06/16 at 21:30; Status Cancel Non-Formulary Medication 1 ea QHS PO ; Start 12/07/16 at 21:00; Status Cancel Lamotrigine (LaMICtal) 100 mg BID PO Last administered on 12/07/16 08:37; Start 12/06/16 at 22:15; Stop 12/07/16 at 18:21; Status DC Atorvastatin Calcium (Lipitor) 80 mg QHS PO Last administered on 12/22/16 19:31 ; Start 12/06/16 at 22:00 Metformin HCl (Glucophage) 1,000 mg BIDWMEALS PO Last administered on 12/22/16 16:39; Start 12/07/16 at 08:00 Hydroxyzine HCl (Atarax) 50 mg PRN Q2HR PRN PO PSYCHOSIS Last administered on 10:58; Start 12/06/16 at 22:00 Olanzapine (Zyprexa Zydis) 5 mg PRN Q2HR PRN PO PSYCHOSIS Last administered on 12/21/16 15:54; Start 12/06/16 at 22:00 Acetaminophen (Tylenol) 650 mg PRN Q6HRS PRN PO fever/pain; Start 12/07/16 at 06:00 Acetaminophen (Tylenol Arthritis) 650 mg DAILY PO Last administered on 08:34; Start 12/07/16 at 09:00 Cyclosporine (Restasis) 1 drop BID OU Last administered on 12/22/16 19:42; Start 12/07/16 at 09:00 Ferrous Sulfate (Feosol) 325 mg BID PO Last administered on 12/22/16 19:31; Start 12/07/16 at 09:00 Lisinopril (Prinivil) 5 mg DAILY PO Last administered on 12/22/16 08:09; Start 12/07/16 at 09:00 Magnesium Oxide (Magnesium Oxide) 400 mg TID PO Last administered on 12/22/16 19:31; Start 12/07/16 at 09:00 Metoprolol Tartrate (Lopressor) 12.5 mg BID PO Last administered on 12/22/16 19 :32; Start 12/07/16 at 09:00 Oxybutynin Chloride (Ditropan) 2.5 mg DAILY PO Last administered on 12/22/16 08 :08; Start 12/07/16 at 09:00 Polyethylene Glycol (miraLAX) 17 gm BID PO Last administered on 12/22/16 19:30 ; Start 12/07/16 at 09:00 Ropinirole HCl (Requip) 0.5 mg TID PO Last administered on 12/22/16 19:32; Start 12/07/16 at 09:00 Benztropine Mesylate (Cogentin) 2 mg BID PO Last administered on 12/22/16 19:31 ; Start 12/07/16 at 09:00 Calcium/Vitamin D (Oscal D 500mg/ 200uts) 1 tab DAILY PO Last administered on 08:09; Start 12/07/16 at 09:00 Artificial Tears (Artificial Tears) 1 drop DAILY OU Last administered on 08:12; Start 12/07/16 at 09:00 Non-Formulary Medication 1 each PRN QHS PRN OU DRY EYE; Start 12/07/16 at 06:00 ; Status UNV Docusate Sodium (Colace) 200 mg PRN QHS PRN PO CONSTIPATION; Start 12/07/16 at 06:15 Non-Formulary Medication 2,400 mg PRN DAILY PRN PO CONSTIPATION; Start at 06:00; Status UNV Pantoprazole Sodium (Protonix) 40 mg DAILYAC PO Last administered on 12/22/16 08:10; Start 12/07/16 at 07:30 Trazodone HCl (Desyrel) 100 mg 1X ONCE PO Last administered on 12/07/16 06:18 ; Start 12/07/16 at 06:30; Stop 12/07/16 at 06:31; Status DC Trazodone HCl (Desyrel) 100 mg PRN QHS PRN PO INSOMNIA; Start 12/07/16 at 06:00 Divalproex Sodium (Depakote Er) 500 mg QHS PO Last administered on 12/11/16 20 :48; Start 12/07/16 at 21:00; Stop 12/12/16 at 13:16; Status DC Trazodone HCl (Desyrel) 100 mg QHS PO Last administered on 12/22/16 19:31; Start 12/07/16 at 21:00 Divalproex Sodium (Depakote Er) 500 mg HS PO Last administered on 12/22/16 19: 31; Start 12/12/16 at 21:00 Divalproex Sodium (Depakote Er) 250 mg HS PO Last administered on 12/22/16 19: 31; Start 12/12/16 at 21:00 Quetiapine Fumarate (SEROquel) 50 mg HS PO Last administered on 12/13/16 21:42 ; Start 12/12/16 at 21:00; Stop 12/14/16 at 18:24; Status DC Aripiprazole (Abilify) 5 mg DAILY PO Last administered on 12/22/16 08:10; Start 12/15/16 at 09:00; Stop 12/22/16 at 18:22; Status DC Saliva Substitute (Biotene Dry Mouth) 1 dain PRN Q15MIN PRN PO DRY MOUTH Last administered on 12/17/16 13:39; Start 12/16/16 at 18:00 Aripiprazole (Abilify) 10 mg HS PO Last administered on 12/22/16 19:42; Start 12/22/16 at 21:00 Active Scripts Active Reported Omeprazole 40 Mg Capsule.dr 40 Mg PO DAILY Artificial Tears (Dextran 70/Hypromellose) 1 Each Droperette 1 Each OU DAILY Artificial Tears (Dextran 70/Hypromellose) 1 Each Droperette 1 Each OU PRN QHS PRN Arthritis Pain (Acetaminophen) 650 Mg Tablet.er 650 Mg PO DAILY Metoprolol Succinate ( Xl ) (Metoprolol Succinate) 25 Mg Tab.er.24h 12.5 Mg PO BID Metformin Hcl 1,000 Mg Tablet 1,000 Mg PO BID Lisinopril 5 Mg Tablet 5 Mg PO DAILY Ferrous Sulfate 325 Mg Tablet 325 Mg PO BID Geodon (Ziprasidone Hcl) 40 Mg Capsule 40 Mg PO BID Give with food Oxcarbazepine 300 Mg Tablet 300 Mg PO BID Magnesium Oxide 400 Mg Tablet 400 Mg PO TID Namenda (Memantine Hcl) 10 Mg Tablet 10 Mg PO BID Lipitor (Atorvastatin Calcium) 80 Mg Tablet 80 Mg PO QHS Ropinirole Hcl 0.5 Mg Tablet 0.5 Mg PO TID Polyethylene Glycol 3350 17 Gm Powd.pack 17 Gm PO BID Oxybutynin Chloride 5 Mg Tablet 2.5 Mg PO DAILY Milk Of Magnesia (Magnesium Hydroxide) 2,400 Mg/10 Ml Oral.susp 2,400 Mg PO PRN DAILY PRN Lamotrigine 200 Mg Tab.er.24 200 Mg PO HS Docusate Sodium 100 Mg Tablet 200 Mg PO PRN HS PRN Restasis (Cyclosporine) 1 Each Droperette 1 Drop OU BID Citalopram Hbr (Citalopram Hydrobromide) 20 Mg Tablet 20 Mg PO HS Calcitrate + Vit D Caplet (Calcium Citrate/Vitamin D3) 1 Each Tablet 1 Tab PO DAILY Benztropine Mesylate 2 Mg Tablet 2 Mg PO BID Acetaminophen 500 Mg Tablet 650 Mg PO PRN Q6HRS PRN MAXIMUM DOSE OF ACETAMINIOPHEN IS 4,000 MG IN 24 HOURS FROM ALL SOURCES FOR ADULTS. LAST DOSE GIVEN: NOT GIVEN THIS ADMISSION NEXT DOSE DUE: DATE: TODAY TIME: IF NEEDED Diagnosis: Problems: (1) Anxiety disorder (2) Impulse control disorder (3) Psychosis, atypical (4) Schizoaffective disorder, chronic condition with acute exacerbation (5) Healthcare-associated pneumonia DONNELL VELASQUEZ MD Dec 22, 2016 21:28
[2016-12-23 06:09] VITALS: BP 131/62
[2016-12-23] MEDS: FERROUS SULFATE 325 MG TABLET PO SCH ×2 (07:57→19:28)
[2016-12-23] MEDS: CYCLOSPORINE 0.05% OPTH DROPERETTE. OU SCH ×2 (07:57→19:33)
[2016-12-23] MEDS: POLYETHYLENE GLYCOL 3350 17 GM PACKET. PO SCH ×2 (07:57→19:32)
[2016-12-23] MEDS: BENZTROPINE MESYLATE 1 MG TABLET PO SCH ×2 (07:57→19:26)
[2016-12-23] MEDS: METFORMIN 500 MG TABLET. PO SCH ×2 (07:57→16:32)
[2016-12-23] MEDS: MEMANTINE 10 MG TABLET. PO SCH ×2 (07:58→19:32)
[2016-12-23] MEDS: OXYBUTYNIN CHLORIDE 5 MG TABLET PO SCH (07:58)
[2016-12-23] MEDS: MAGNESIUM OXIDE 400 MG TABLET PO SCH ×3 (07:58→19:31)
[2016-12-23] MEDS: rOPINIRole 0.5 MG TABLET. PO SCH ×3 (07:59→19:32)
[2016-12-23] MEDS: CALCIUM CARB/VIT D3 500/200 TABLET PO SCH (07:59)
[2016-12-23] MEDS: LISINOPRIL 5 MG TABLET. PO SCH (07:59)
[2016-12-23] MEDS: METOPROLOL TART IMMED RELEASE 25 MG TABLET PO SCH ×2 (08:00→19:30)
[2016-12-23] MEDS: POLYVINYL ALCOHOL 1.4% OPHTH SOLUTION 15ML BOTTLE. OU SCH (08:01)
[2016-12-23] MEDS: PANTOPRAZOLE 40 MG TABLET. PO SCH (08:02)
[2016-12-23] MEDS: ACETAMINOPHEN 650 MG TABLET.ER PO SCH (08:03)
[2016-12-23 10:07] LABS: BASO % 0 % (0-3); EOS # 0.1 x10^3/uL (0.0-0.7); EOS % 1 % (0-3); HEMATOCRIT 40.6 % (36.0-47.0); HEMOGLOBIN 11.8 g/dL (12.0-15.5); LYMPH # 1.9 x10^3/uL (1.0-4.8); LYMPH % 19 % (24-48); MEAN CORPUSCULAR HEMOGLOBIN 29 pg (25-35); MEAN CORPUSCULAR HGB CONC 29 g/dL (31-37); MEAN CORPUSCULAR VOLUME 99 fL (79-100); MONO # 0.9 x10^3/uL (0.0-1.1); MONO % 9 % (0-9); NEUT # 6.7 x10^3uL (1.8-7.7); NEUT % 70 % (31-73); PLATELET COUNT 214 x10^3/uL (140-400); RED BLOOD COUNT 4.11 x10^6/uL (3.50-5.40); RED CELL DISTRIBUTION WIDTH 17.4 % (11.5-14.5); WHITE BLOOD COUNT 9.6 x10^3/uL (4.0-11.0)
[2016-12-23 16:25] VITALS: BP 112/61
[2016-12-23] MEDS ORDERED: SALIVA STIMULANT AGENT MOUTHWASH 237ML BOTTLE. PO PRN (18:00)
[2016-12-23 19:04] LABS: ALBUMIN 3.1 g/dL (3.4-5.0); ALBUMIN/GLOBULIN RATIO 0.7 (1.0-1.7); CALCIUM 9.2 mg/dL (8.5-10.1); CREATININE 0.8 mg/dL (0.6-1.0); GFR 69.4; POTASSIUM 4.3 mmol/L (3.5-5.1); TOTAL BILIRUBIN 0.2 mg/dL (0.2-1.0); TOTAL PROTEIN 7.5 g/dL (6.4-8.2)
[2016-12-23] MEDS: ARIPIPRAZOLE 10 MG TABLET PO SCH (19:26)
[2016-12-23] MEDS: CITALOPRAM 20 MG TABLET. PO SCH (19:26)
[2016-12-23] MEDS: DIVALPROEX ER 500 MG TAB.ER.24H PO SCH (19:27)
[2016-12-23] MEDS: DIVALPROEX ER 250 MG TAB.ER.24H. PO SCH (19:27)
[2016-12-23] MEDS: traZODone 100 MG TABLET. PO SCH (19:28)
[2016-12-23] MEDS: ATORVASTATIN CALCIUM 20 MG TABLET PO SCH (19:29)
[2016-12-23] MEDS: MAGNESIUM HYDROXIDE 2,400 MG/30 ML ORAL.SUSP. PO PRN (20:03)
--- NOTE | 2016-12-23 21:20 | PDOC ---
Exam Adrian Demential Exam: Adrian Note: Please also refer to the separate dictated note~for this date of service dictated separately.~Patient seen individually. Discussed the patient with Nursing staff reviewed the chart.~Reviewed interim history and current functioning. Reviewed vital signs,~Labs/ Radiology~and current medications noted below. Continue current treatment with the changes noted in the dictated addendum note Assessment: Vital Signs: Vital Signs Date Time Temp Pulse Resp B/P Pulse Ox O2 Delivery O2 Flow Rate FiO2 12/23/16 19:30 78 112/61 12/23/16 16:25 98.5 16 98 12/20/16 06:07 Room Air I&O Intake and Output 12/23/16 07:00 Intake Total 600 ml Balance 600 ml Intake Oral 600 ml # Voids 1 Labs: Laboratory Tests Test 12/23/16 07:22 12/23/16 09:51 12/23/16 11:45 12/23/16 16:18 Glucose (Fingerstick) 91mg/dL (70-99) 118mg/dL (70-99) H 107mg/dL (70-99) H White Blood Count 9.6x10^3/uL (4.0-11.0) Red Blood Count 4.11x10^6/uL (3.50-5.40) Hemoglobin 11.8g/dL (12.0-15.5) L Hematocrit 40.6% (36.0-47.0) Mean Corpuscular Volume 99fL (79-100) # Mean Corpuscular Hemoglobin 29pg (25-35) Mean Corpuscular Hemoglobin Concent 29g/dL (31-37) L Red Cell Distribution Width 17.4% (11.5-14.5) H Platelet Count 214x10^3/uL (140-400) Neutrophils (%) (Auto) 70% (31-73) Lymphocytes (%) (Auto) 19% (24-48) L Monocytes (%) (Auto) 9% (0-9) Eosinophils (%) (Auto) 1% (0-3) Basophils (%) (Auto) 0% (0-3) Neutrophils # (Auto) 6.7x10^3uL (1.8-7.7) Lymphocytes # (Auto) 1.9x10^3/uL (1.0-4.8) Monocytes # (Auto) 0.9x10^3/uL (0.0-1.1) Eosinophils # (Auto) 0.1x10^3/uL (0.0-0.7) Basophils # (Auto) 0.0x10^3/uL (0.0-0.2) Test 12/23/16 18:25 12/23/16 19:06 Sodium Level 147mmol/L (136-145) H Potassium Level 4.3mmol/L (3.5-5.1) Chloride Level 108mmol/L (98-107) H Carbon Dioxide Level 30mmol/L (21-32) Anion Gap 9 (6-14) Blood Urea Nitrogen 35mg/dL (7-20) H Creatinine 0.8mg/dL (0.6-1.0) Estimated GFR (Cockcroft-Gault) 69.4 BUN/Creatinine Ratio 44 (6-20) H Glucose Level 100mg/dL (70-99) H Calcium Level 9.2mg/dL (8.5-10.1) Total Bilirubin 0.2mg/dL (0.2-1.0) Aspartate Amino Transferase (AST) 17U/L (15-37) Alanine Aminotransferase (ALT) 17U/L (14-59) Alkaline Phosphatase 138U/L (46-116) H Total Protein 7.5g/dL (6.4-8.2) Albumin 3.1g/dL (3.4-5.0) L Albumin/Globulin Ratio 0.7 (1.0-1.7) L Glucose (Fingerstick) 89mg/dL (70-99) Current Medications: Meds: Current Medications Acetaminophen (Tylenol) 650 mg PRN Q6HRS PRN PO PAIN / TEMP; Start 12/06/16 at 20:15; Status Cancel Multi-Ingredient Ointment (Analgesic [place]) 1 dain PRN QID PRN TP MUSCLE PAIN; Start 12/06/16 at 20:15 Al Hydroxide/Mg Hydroxide (Mylanta Plus Xs) 15 ml PRN AFTMEALHC PRN PO DYSPEPSIA; Start 12/06/16 at 20:15 Magnesium Hydroxide (Milk Of Magnesia) 2,400 mg PRN QHS PRN PO CONSTIPATION Last administered on 12/23/16t 20:03; Start 12/06/16 at 20:15 Citalopram Hydrobromide (Celexa) 20 mg HS PO Last administered on 12/23/16 19: 26; Start 12/06/16 at 21:00 Memantine (Namenda) 10 mg BID PO Last administered on 12/23/16 19:32; Start at 21:00 Oxcarbazepine (Trileptal) 300 mg BID PO Last administered on 12/13/16 08:33; Start 12/06/16 at 21:00; Stop 12/13/16 at 18:38; Status DC Ziprasidone (Geodon) 40 mg BIDWMEALS PO Last administered on 12/11/16 16:51; Start 12/06/16 at 21:00; Stop 12/12/16 at 05:19; Status DC Lamotrigine (LaMICtal) 200 mg QHS PO ; Start 12/06/16 at 21:30; Status Cancel Non-Formulary Medication 1 ea QHS PO ; Start 12/07/16 at 21:00; Status Cancel Lamotrigine (LaMICtal) 100 mg BID PO Last administered on 12/07/16 08:37; Start 12/06/16 at 22:15; Stop 12/07/16 at 18:21; Status DC Atorvastatin Calcium (Lipitor) 80 mg QHS PO Last administered on 12/23/16 19:29 ; Start 12/06/16 at 22:00 Metformin HCl (Glucophage) 1,000 mg BIDWMEALS PO Last administered on 12/23/16 16:32; Start 12/07/16 at 08:00 Hydroxyzine HCl (Atarax) 50 mg PRN Q2HR PRN PO PSYCHOSIS Last administered on 10:58; Start 12/06/16 at 22:00 Olanzapine (Zyprexa Zydis) 5 mg PRN Q2HR PRN PO PSYCHOSIS Last administered on 12/21/16 15:54; Start 12/06/16 at 22:00 Acetaminophen (Tylenol) 650 mg PRN Q6HRS PRN PO fever/pain; Start 12/07/16 at 06:00 Acetaminophen (Tylenol Arthritis) 650 mg DAILY PO Last administered on 08:34; Start 12/07/16 at 09:00; Stop 12/23/16 at 14:55; Status DC Cyclosporine (Restasis) 1 drop BID OU Last administered on 12/23/16 19:33; Start 12/07/16 at 09:00 Ferrous Sulfate (Feosol) 325 mg BID PO Last administered on 12/23/16 19:28; Start 12/07/16 at 09:00 Lisinopril (Prinivil) 5 mg DAILY PO Last administered on 12/23/16 07:59; Start 12/07/16 at 09:00 Magnesium Oxide (Magnesium Oxide) 400 mg TID PO Last administered on 12/23/16 19:31; Start 12/07/16 at 09:00 Metoprolol Tartrate (Lopressor) 12.5 mg BID PO Last administered on 12/23/16 19 :30; Start 12/07/16 at 09:00 Oxybutynin Chloride (Ditropan) 2.5 mg DAILY PO Last administered on 12/23/16 07 :58; Start 12/07/16 at 09:00 Polyethylene Glycol (miraLAX) 17 gm BID PO Last administered on 12/23/16 19:32 ; Start 12/07/16 at 09:00 Ropinirole HCl (Requip) 0.5 mg TID PO Last administered on 12/23/16 19:32; Start 12/07/16 at 09:00 Benztropine Mesylate (Cogentin) 2 mg BID PO Last administered on 12/23/16 19:26 ; Start 12/07/16 at 09:00 Calcium/Vitamin D (Oscal D 500mg/ 200uts) 1 tab DAILY PO Last administered on 07:59; Start 12/07/16 at 09:00 Artificial Tears (Artificial Tears) 1 drop DAILY OU Last administered on 08:01; Start 12/07/16 at 09:00 Non-Formulary Medication 1 each PRN QHS PRN OU DRY EYE; Start 12/07/16 at 06:00 ; Status UNV Docusate Sodium (Colace) 200 mg PRN QHS PRN PO CONSTIPATION; Start 12/07/16 at 06:15 Non-Formulary Medication 2,400 mg PRN DAILY PRN PO CONSTIPATION; Start at 06:00; Status UNV Pantoprazole Sodium (Protonix) 40 mg DAILYAC PO Last administered on 12/23/16 08:02; Start 12/07/16 at 07:30 Trazodone HCl (Desyrel) 100 mg 1X ONCE PO Last administered on 12/07/16 06:18 ; Start 12/07/16 at 06:30; Stop 12/07/16 at 06:31; Status DC Trazodone HCl (Desyrel) 100 mg PRN QHS PRN PO INSOMNIA; Start 12/07/16 at 06:00 Divalproex Sodium (Depakote Er) 500 mg QHS PO Last administered on 12/11/16 20 :48; Start 12/07/16 at 21:00; Stop 12/12/16 at 13:16; Status DC Trazodone HCl (Desyrel) 100 mg QHS PO Last administered on 12/23/16 19:28; Start 12/07/16 at 21:00 Divalproex Sodium (Depakote Er) 500 mg HS PO Last administered on 12/23/16 19: 27; Start 12/12/16 at 21:00 Divalproex Sodium (Depakote Er) 250 mg HS PO Last administered on 12/23/16 19: 27; Start 12/12/16 at 21:00 Quetiapine Fumarate (SEROquel) 50 mg HS PO Last administered on 12/13/16 21:42 ; Start 12/12/16 at 21:00; Stop 12/14/16 at 18:24; Status DC Aripiprazole (Abilify) 5 mg DAILY PO Last administered on 12/22/16 08:10; Start 12/15/16 at 09:00; Stop 12/22/16 at 18:22; Status DC Saliva Substitute (Biotene Dry Mouth) 1 dain PRN Q15MIN PRN PO DRY MOUTH Last administered on 12/17/16 13:39; Start 12/16/16 at 18:00 Aripiprazole (Abilify) 10 mg HS PO Last administered on 12/23/16 19:26; Start 12/22/16 at 21:00 Acetaminophen (Tylenol) 650 mg DAILY PO ; Start 12/24/16 at 09:00 Saliva Substitute (Biotene Dry Mouth) 1 dain PRN TID PRN PO DRY MOUTH; Start 12/23/16 at 18:00 Active Scripts Active Reported Omeprazole 40 Mg Capsule.dr 40 Mg PO DAILY Artificial Tears (Dextran 70/Hypromellose) 1 Each Droperette 1 Each OU DAILY Artificial Tears (Dextran 70/Hypromellose) 1 Each Droperette 1 Each OU PRN QHS PRN Arthritis Pain (Acetaminophen) 650 Mg Tablet.er 650 Mg PO DAILY Metoprolol Succinate ( Xl ) (Metoprolol Succinate) 25 Mg Tab.er.24h 12.5 Mg PO BID Metformin Hcl 1,000 Mg Tablet 1,000 Mg PO BID Lisinopril 5 Mg Tablet 5 Mg PO DAILY Ferrous Sulfate 325 Mg Tablet 325 Mg PO BID Geodon (Ziprasidone Hcl) 40 Mg Capsule 40 Mg PO BID Give with food Oxcarbazepine 300 Mg Tablet 300 Mg PO BID Magnesium Oxide 400 Mg Tablet 400 Mg PO TID Namenda (Memantine Hcl) 10 Mg Tablet 10 Mg PO BID Lipitor (Atorvastatin Calcium) 80 Mg Tablet 80 Mg PO QHS Ropinirole Hcl 0.5 Mg Tablet 0.5 Mg PO TID Polyethylene Glycol 3350 17 Gm Powd.pack 17 Gm PO BID Oxybutynin Chloride 5 Mg Tablet 2.5 Mg PO DAILY Milk Of Magnesia (Magnesium Hydroxide) 2,400 Mg/10 Ml Oral.susp 2,400 Mg PO PRN DAILY PRN Lamotrigine 200 Mg Tab.er.24 200 Mg PO HS Docusate Sodium 100 Mg Tablet 200 Mg PO PRN HS PRN Restasis (Cyclosporine) 1 Each Droperette 1 Drop OU BID Citalopram Hbr (Citalopram Hydrobromide) 20 Mg Tablet 20 Mg PO HS Calcitrate + Vit D Caplet (Calcium Citrate/Vitamin D3) 1 Each Tablet 1 Tab PO DAILY Benztropine Mesylate 2 Mg Tablet 2 Mg PO BID Acetaminophen 500 Mg Tablet 650 Mg PO PRN Q6HRS PRN MAXIMUM DOSE OF ACETAMINIOPHEN IS 4,000 MG IN 24 HOURS FROM ALL SOURCES FOR ADULTS. LAST DOSE GIVEN: NOT GIVEN THIS ADMISSION NEXT DOSE DUE: DATE: TODAY TIME: IF NEEDED Diagnosis: Problems: (1) Anxiety disorder (2) Impulse control disorder (3) Psychosis, atypical (4) Schizoaffective disorder, chronic condition with acute exacerbation (5) Healthcare-associated pneumonia DONNELL VELASQUEZ MD Dec 23, 2016 21:20
--- NOTE | 2016-12-24 03:08 | PN ---
DATE: 12/21/2016 PSYCHIATRIC PROGRESS NOTE This is a late entry of 12/21/2016 covers elements not covered in my initial note. SUBJECTIVE: The patient was staffed at a treatment team meeting with the entire team then seen individually. She remains withdrawn. Appetite is poor. At times she is eating 60% rest of the time much less. Overall, calmer. At the treatment team meeting discussed the diagnosis, past history, discharge aftercare plans. REVIEW OF SYSTEMS: Ambulation impaired in her wheelchair. She was ambulating when she was admitted and physical therapy is restarting with no CV, , Pulmonary, eye system symptoms on review, complains of some dryness of her mouth, refuses boost as I attempted to feed her. MENTAL STATUS EXAM: Reasonably oriented. Speech is coherent, has some latency, often responses monosyllabic. Abstraction fair, computation impaired, language function intact. Mood and affect somewhat withdrawn. LABORATORY DATA: Reviewed. IMPRESSION: Schizoaffective disorder, bipolar type, mixed with psychotic features, in partial remission. Rest diagnoses unchanged. PLAN: Continue current psychotropics mentioned in my initial note, encourage food compliance. Adjust further as clinically indicated. We may need to increase Abilify if psychotic symptoms resurface. DONNELL VELASQUEZ MD DR: JUSTIN/pattie JOB#: [id number] / [id number]
--- NOTE | 2016-12-24 03:19 | PN ---
DATE: 12/22/2016 This late entry 12/22/2016 covers elements not covered in my initial note. Overall, the patient has been increasingly agitated, noncompliant with medications, screaming during showers, Atarax seemed to help somewhat. She puts herself on the floor at times. No injuries noted. REVIEW OF SYSTEMS: Ambulation impaired, in her wheelchair; poor appetite. I tried to for supper. No CV, , pulmonary, eye system symptoms on review. MENTAL STATUS EXAM: Reasonably oriented. Speech, low in volume, often responses, monosyllabic. Abstraction fair, computation impaired, language function intact. Mood and affect somewhat depressed, at times labile, intermittently psychotic. LABORATORY DATA: Reviewed. IMPRESSION: Schizoaffective disorder, bipolar type, mixed with psychotic features, in partial remission. Rest diagnosis unchanged. PLAN: Continue Namenda 10 mg twice a day, Celexa 20 mg a day, Atarax p.r.n., Zyprexa p.r.n., increase Abilify from 5 mg a day to 10 mg a day. Continue Cogentin 2 mg twice a day, trazodone 100 mg at bedtime, may repeat x1 for insomnia, Depakote ER 750 at bedtime, level is therapeutic at 74, adjust further as clinically indicated. MAN Gracia VELASQUEZ MD DR: JUSTIN/pattie JOB#: [id number] / [id number]
[2016-12-24 05:52] VITALS: BP 148/73
[2016-12-24] MEDS: POLYETHYLENE GLYCOL 3350 17 GM PACKET. PO SCH ×2 (08:07→20:18)
[2016-12-24] MEDS: rOPINIRole 0.5 MG TABLET. PO SCH ×3 (08:07→20:18)
[2016-12-24] MEDS: CYCLOSPORINE 0.05% OPTH DROPERETTE. OU SCH ×2 (08:07→20:14)
[2016-12-24] MEDS: CALCIUM CARB/VIT D3 500/200 TABLET PO SCH (08:07)
[2016-12-24] MEDS: METFORMIN 500 MG TABLET. PO SCH ×2 (08:07→16:39)
[2016-12-24] MEDS: MAGNESIUM OXIDE 400 MG TABLET PO SCH ×3 (08:07→20:18)
[2016-12-24] MEDS: PANTOPRAZOLE 40 MG TABLET. PO SCH (08:08)
[2016-12-24] MEDS: LISINOPRIL 5 MG TABLET. PO SCH (08:08)
[2016-12-24] MEDS: METOPROLOL TART IMMED RELEASE 25 MG TABLET PO SCH ×2 (08:08→20:17)
[2016-12-24] MEDS: MEMANTINE 10 MG TABLET. PO SCH ×2 (08:08→20:18)
[2016-12-24] MEDS: OXYBUTYNIN CHLORIDE 5 MG TABLET PO SCH (08:08)
[2016-12-24] MEDS: FERROUS SULFATE 325 MG TABLET PO SCH ×2 (08:08→20:16)
[2016-12-24] MEDS: BENZTROPINE MESYLATE 1 MG TABLET PO SCH ×2 (08:08→20:15)
[2016-12-24] MEDS: POLYVINYL ALCOHOL 1.4% OPHTH SOLUTION 15ML BOTTLE. OU SCH (08:09)
[2016-12-24] MEDS: ACETAMINOPHEN 325 MG TABLET PO SCH (08:10)
[2016-12-24 15:50] VITALS: BP 102/61
[2016-12-24] MEDS: CITALOPRAM 20 MG TABLET. PO SCH (20:15)
[2016-12-24] MEDS: ARIPIPRAZOLE 10 MG TABLET PO SCH (20:15)
[2016-12-24] MEDS: ATORVASTATIN CALCIUM 20 MG TABLET PO SCH (20:16)
[2016-12-24] MEDS: DIVALPROEX ER 500 MG TAB.ER.24H PO SCH (20:16)
[2016-12-24] MEDS: DIVALPROEX ER 250 MG TAB.ER.24H. PO SCH (20:16)
[2016-12-24] MEDS: traZODone 100 MG TABLET. PO SCH (20:16)
--- NOTE | 2016-12-24 22:08 | PDOC ---
Exam Adrian Demential Exam: Adrian Note: Please also refer to the separate dictated note~for this date of service dictated separately.~Patient seen individually. Discussed the patient with Nursing staff reviewed the chart.~Reviewed interim history and current functioning. Reviewed vital signs,~Labs/ Radiology~and current medications noted below. Continue current treatment with the changes noted in the dictated addendum note Assessment: Vital Signs: Vital Signs Date Time Temp Pulse Resp B/P Pulse Ox O2 Delivery O2 Flow Rate FiO2 12/24/16 20:17 76 102/61 12/24/16 15:50 97.5 19 97 12/20/16 06:07 Room Air I&O Intake and Output 12/24/16 07:00 Intake Total 460 ml Balance 460 ml Intake Oral 460 ml Labs: Laboratory Tests Test 12/24/16 07:15 12/24/16 11:12 12/24/16 16:48 12/24/16 19:03 Glucose (Fingerstick) 84mg/dL (70-99) 107mg/dL (70-99) H 87mg/dL (70-99) 87mg/dL (70-99) Current Medications: Meds: Current Medications Acetaminophen (Tylenol) 650 mg PRN Q6HRS PRN PO PAIN / TEMP; Start 12/06/16 at 20:15; Status Cancel Multi-Ingredient Ointment (Analgesic [place]) 1 dain PRN QID PRN TP MUSCLE PAIN; Start 12/06/16 at 20:15 Al Hydroxide/Mg Hydroxide (Mylanta Plus Xs) 15 ml PRN AFTMEALHC PRN PO DYSPEPSIA; Start 12/06/16 at 20:15 Magnesium Hydroxide (Milk Of Magnesia) 2,400 mg PRN QHS PRN PO CONSTIPATION Last administered on 12/23/16 20:03; Start 12/06/16 at 20:15 Citalopram Hydrobromide (Celexa) 20 mg HS PO Last administered on 12/24/16 20: 15; Start 12/06/16 at 21:00 Memantine (Namenda) 10 mg BID PO Last administered on 12/24/16 20:18; Start at 21:00 Oxcarbazepine (Trileptal) 300 mg BID PO Last administered on 12/13/16 08:33; Start 12/06/16 at 21:00; Stop 12/13/16 at 18:38; Status DC Ziprasidone (Geodon) 40 mg BIDWMEALS PO Last administered on 12/11/16 16:51; Start 12/06/16 at 21:00; Stop 12/12/16 at 05:19; Status DC Lamotrigine (LaMICtal) 200 mg QHS PO ; Start 12/06/16 at 21:30; Status Cancel Non-Formulary Medication 1 ea QHS PO ; Start 12/07/16 at 21:00; Status Cancel Lamotrigine (LaMICtal) 100 mg BID PO Last administered on 12/07/16 08:37; Start 12/06/16 at 22:15; Stop 12/07/16 at 18:21; Status DC Atorvastatin Calcium (Lipitor) 80 mg QHS PO Last administered on 12/24/16 20:16 ; Start 12/06/16 at 22:00 Metformin HCl (Glucophage) 1,000 mg BIDWMEALS PO Last administered on 12/24/16 16:39; Start 12/07/16 at 08:00 Hydroxyzine HCl (Atarax) 50 mg PRN Q2HR PRN PO PSYCHOSIS Last administered on 10:58; Start 12/06/16 at 22:00 Olanzapine (Zyprexa Zydis) 5 mg PRN Q2HR PRN PO PSYCHOSIS Last administered on 12/21/16 15:54; Start 12/06/16 at 22:00 Acetaminophen (Tylenol) 650 mg PRN Q6HRS PRN PO fever/pain; Start 12/07/16 at 06:00 Acetaminophen (Tylenol Arthritis) 650 mg DAILY PO Last administered on 08:34; Start 12/07/16 at 09:00; Stop 12/23/16 at 14:55; Status DC Cyclosporine (Restasis) 1 drop BID OU Last administered on 12/24/16 20:14; Start 12/07/16 at 09:00 Ferrous Sulfate (Feosol) 325 mg BID PO Last administered on 12/24/16 20:16; Start 12/07/16 at 09:00 Lisinopril (Prinivil) 5 mg DAILY PO Last administered on 12/24/16 08:08; Start 12/07/16 at 09:00 Magnesium Oxide (Magnesium Oxide) 400 mg TID PO Last administered on 12/24/16 20:18; Start 12/07/16 at 09:00 Metoprolol Tartrate (Lopressor) 12.5 mg BID PO Last administered on 12/24/16 20 :17; Start 12/07/16 at 09:00 Oxybutynin Chloride (Ditropan) 2.5 mg DAILY PO Last administered on 12/24/16 08 :08; Start 12/07/16 at 09:00 Polyethylene Glycol (miraLAX) 17 gm BID PO Last administered on 12/24/16 20:18 ; Start 12/07/16 at 09:00 Ropinirole HCl (Requip) 0.5 mg TID PO Last administered on 12/24/16 20:18; Start 12/07/16 at 09:00 Benztropine Mesylate (Cogentin) 2 mg BID PO Last administered on 12/24/16 20:15 ; Start 12/07/16 at 09:00 Calcium/Vitamin D (Oscal D 500mg/ 200uts) 1 tab DAILY PO Last administered on 08:07; Start 12/07/16 at 09:00 Artificial Tears (Artificial Tears) 1 drop DAILY OU Last administered on 08:09; Start 12/07/16 at 09:00 Non-Formulary Medication 1 each PRN QHS PRN OU DRY EYE; Start 12/07/16 at 06:00 ; Status UNV Docusate Sodium (Colace) 200 mg PRN QHS PRN PO CONSTIPATION; Start 12/07/16 at 06:15 Non-Formulary Medication 2,400 mg PRN DAILY PRN PO CONSTIPATION; Start at 06:00; Status UNV Pantoprazole Sodium (Protonix) 40 mg DAILYAC PO Last administered on 12/24/16 08:08; Start 12/07/16 at 07:30 Trazodone HCl (Desyrel) 100 mg 1X ONCE PO Last administered on 12/07/16 06:18 ; Start 12/07/16 at 06:30; Stop 12/07/16 at 06:31; Status DC Trazodone HCl (Desyrel) 100 mg PRN QHS PRN PO INSOMNIA; Start 12/07/16 at 06:00 Divalproex Sodium (Depakote Er) 500 mg QHS PO Last administered on 12/11/16 20 :48; Start 12/07/16 at 21:00; Stop 12/12/16 at 13:16; Status DC Trazodone HCl (Desyrel) 100 mg QHS PO Last administered on 12/24/16 20:16; Start 12/07/16 at 21:00 Divalproex Sodium (Depakote Er) 500 mg HS PO Last administered on 12/24/16 20: 16; Start 12/12/16 at 21:00 Divalproex Sodium (Depakote Er) 250 mg HS PO Last administered on 12/24/16 20: 16; Start 12/12/16 at 21:00 Quetiapine Fumarate (SEROquel) 50 mg HS PO Last administered on 12/13/16 21:42 ; Start 12/12/16 at 21:00; Stop 12/14/16 at 18:24; Status DC Aripiprazole (Abilify) 5 mg DAILY PO Last administered on 12/22/16 08:10; Start 12/15/16 at 09:00; Stop 12/22/16 at 18:22; Status DC Saliva Substitute (Biotene Dry Mouth) 1 dain PRN Q15MIN PRN PO DRY MOUTH Last administered on 12/17/16 13:39; Start 12/16/16 at 18:00 Aripiprazole (Abilify) 10 mg HS PO Last administered on 12/24/16 20:15; Start 12/22/16 at 21:00 Acetaminophen (Tylenol) 650 mg DAILY PO Last administered on 12/24/16 08:10; Start 12/24/16 at 09:00 Saliva Substitute (Biotene Dry Mouth) 1 dain PRN TID PRN PO DRY MOUTH; Start 12/23/16 at 18:00 Active Scripts Active Reported Omeprazole 40 Mg Capsule.dr 40 Mg PO DAILY Artificial Tears (Dextran 70/Hypromellose) 1 Each Droperette 1 Each OU DAILY Artificial Tears (Dextran 70/Hypromellose) 1 Each Droperette 1 Each OU PRN QHS PRN Arthritis Pain (Acetaminophen) 650 Mg Tablet.er 650 Mg PO DAILY Metoprolol Succinate ( Xl ) (Metoprolol Succinate) 25 Mg Tab.er.24h 12.5 Mg PO BID Metformin Hcl 1,000 Mg Tablet 1,000 Mg PO BID Lisinopril 5 Mg Tablet 5 Mg PO DAILY Ferrous Sulfate 325 Mg Tablet 325 Mg PO BID Geodon (Ziprasidone Hcl) 40 Mg Capsule 40 Mg PO BID Give with food Oxcarbazepine 300 Mg Tablet 300 Mg PO BID Magnesium Oxide 400 Mg Tablet 400 Mg PO TID Namenda (Memantine Hcl) 10 Mg Tablet 10 Mg PO BID Lipitor (Atorvastatin Calcium) 80 Mg Tablet 80 Mg PO QHS Ropinirole Hcl 0.5 Mg Tablet 0.5 Mg PO TID Polyethylene Glycol 3350 17 Gm Powd.pack 17 Gm PO BID Oxybutynin Chloride 5 Mg Tablet 2.5 Mg PO DAILY Milk Of Magnesia (Magnesium Hydroxide) 2,400 Mg/10 Ml Oral.susp 2,400 Mg PO PRN DAILY PRN Lamotrigine 200 Mg Tab.er.24 200 Mg PO HS Docusate Sodium 100 Mg Tablet 200 Mg PO PRN HS PRN Restasis (Cyclosporine) 1 Each Droperette 1 Drop OU BID Citalopram Hbr (Citalopram Hydrobromide) 20 Mg Tablet 20 Mg PO HS Calcitrate + Vit D Caplet (Calcium Citrate/Vitamin D3) 1 Each Tablet 1 Tab PO DAILY Benztropine Mesylate 2 Mg Tablet 2 Mg PO BID Acetaminophen 500 Mg Tablet 650 Mg PO PRN Q6HRS PRN MAXIMUM DOSE OF ACETAMINIOPHEN IS 4,000 MG IN 24 HOURS FROM ALL SOURCES FOR ADULTS. LAST DOSE GIVEN: NOT GIVEN THIS ADMISSION NEXT DOSE DUE: DATE: TODAY TIME: IF NEEDED Diagnosis: Problems: (1) Anxiety disorder (2) Impulse control disorder (3) Psychosis, atypical (4) Schizoaffective disorder, chronic condition with acute exacerbation DONNELL VELASQUEZ MD Dec 24, 2016 22:08
[2016-12-25 06:07] VITALS: BP 144/70
[2016-12-25] MEDS: CYCLOSPORINE 0.05% OPTH DROPERETTE. OU SCH ×2 (07:50→20:19)
[2016-12-25] MEDS: BENZTROPINE MESYLATE 1 MG TABLET PO SCH ×2 (07:51→19:43)
[2016-12-25] MEDS: MAGNESIUM OXIDE 400 MG TABLET PO SCH ×3 (07:51→19:39)
[2016-12-25] MEDS: METFORMIN 500 MG TABLET. PO SCH ×2 (07:51→16:48)
[2016-12-25] MEDS: rOPINIRole 0.5 MG TABLET. PO SCH ×3 (07:51→19:43)
[2016-12-25] MEDS: FERROUS SULFATE 325 MG TABLET PO SCH ×2 (07:51→19:43)
[2016-12-25] MEDS: PANTOPRAZOLE 40 MG TABLET. PO SCH (07:51)
[2016-12-25] MEDS: CALCIUM CARB/VIT D3 500/200 TABLET PO SCH (07:51)
[2016-12-25] MEDS: MEMANTINE 10 MG TABLET. PO SCH ×2 (07:52→19:41)
[2016-12-25] MEDS: ACETAMINOPHEN 325 MG TABLET PO SCH (07:52)
[2016-12-25] MEDS: OXYBUTYNIN CHLORIDE 5 MG TABLET PO SCH (07:52)
[2016-12-25] MEDS: METOPROLOL TART IMMED RELEASE 25 MG TABLET PO SCH ×2 (07:53→19:41)
[2016-12-25] MEDS: POLYETHYLENE GLYCOL 3350 17 GM PACKET. PO SCH ×2 (07:53→19:36)
[2016-12-25] MEDS: LISINOPRIL 5 MG TABLET. PO SCH (07:53)
[2016-12-25] MEDS: POLYVINYL ALCOHOL 1.4% OPHTH SOLUTION 15ML BOTTLE. OU SCH (07:54)
[2016-12-25 09:52] LABS: ALBUMIN 3.3 g/dL (3.4-5.0); ALBUMIN/GLOBULIN RATIO 0.7 (1.0-1.7); CALCIUM 9.5 mg/dL (8.5-10.1); CREATININE 0.9 mg/dL (0.6-1.0); GFR 60.6; POTASSIUM 4.2 mmol/L (3.5-5.1); TOTAL BILIRUBIN 0.3 mg/dL (0.2-1.0)
[2016-12-25 16:02] VITALS: BP 120/62
[2016-12-25] MEDS: ATORVASTATIN CALCIUM 20 MG TABLET PO SCH (19:39)
[2016-12-25] MEDS: CITALOPRAM 20 MG TABLET. PO SCH (19:41)
[2016-12-25] MEDS: DIVALPROEX ER 500 MG TAB.ER.24H PO SCH (19:42)
[2016-12-25] MEDS: ARIPIPRAZOLE 10 MG TABLET PO SCH (19:42)
[2016-12-25] MEDS: traZODone 100 MG TABLET. PO SCH (19:42)
[2016-12-25] MEDS: DIVALPROEX ER 250 MG TAB.ER.24H. PO SCH (19:43)
[2016-12-25] MEDS: SALIVA STIMULANT AGENT MOUTHWASH 237ML BOTTLE. PO PRN (20:19)
--- NOTE | 2016-12-25 20:54 | PN ---
DATE: 12/23/2016 PSYCHIATRIC PROGRESS NOTE This is late entry of 12/23/2016, covers elements not covered in my initial note. SUBJECTIVE: The patient is still withdrawn, not eating much, complains of dry mouth. We will increase Biotene to 3 times a day. Check labs. She does not drink Boost because it is too sweet and we will have a dietary consult to seek alternatives. REVIEW OF SYSTEMS: Ambulation impaired, in a wheelchair, poor appetite. No CV, , eye, ENT system symptoms on review. MENTAL STATUS EXAMINATION: Oriented to herself and situation. Speech is coherent, low in rate and rhythm, low in volume. Abstraction fair, computation impaired, less psychotic. LABORATORY DATA: Reviewed. IMPRESSION: Unchanged from initial note. PLAN: Continue current psychotropics, encourage compliance, Abilify was increased to 10 mg a day. MAN Gracia VELASQUEZ MD DR: JUSTIN/pattie JOB#: [id number] / [id number]
--- NOTE | 2016-12-25 21:00 | PN ---
DATE: 12/24/2016 PSYCHIATRIC PROGRESS NOTE This is late entry of 12/24/2016, covers elements not covered in my initial note. SUBJECTIVE: The patient's oral intake remains poor, fluids are being pushed, ate some Jell-O for lunch, little else. Labs will be repeated on morning of 12/25/2016, will defer to Dr. Salazar. Labs on 12/23/2016 were unremarkable, BUN 35. REVIEW OF SYSTEMS: Poor appetite, impaired ambulation, in a wheelchair. No CV, , eye, ENT system symptoms on review. MENTAL STATUS EXAMINATION: Speech low in rate and rhythm, low in volume, less psychotic, abstraction fair, computation impaired, language function intact, attention span short. IMPRESSION: Unchanged from initial note. PLAN: Continue current psychotropics, encourage compliance. Valproic acid level 74, adjust as clinically indicated. MAN Gracia VELASQUEZ MD DR: JUSTIN/pattie JOB#: [id number] / [id number]
--- NOTE | 2016-12-25 21:09 | PDOC ---
Exam Adrian Demential Exam: Adrian Note: Please also refer to the separate dictated note~for this date of service dictated separately.~Patient seen individually. Discussed the patient with Nursing staff reviewed the chart.~Reviewed interim history and current functioning. Reviewed vital signs,~Labs/ Radiology~and current medications noted below. Continue current treatment with the changes noted in the dictated addendum note Assessment: Vital Signs: Vital Signs Date Time Temp Pulse Resp B/P Pulse Ox O2 Delivery O2 Flow Rate FiO2 12/25/16 19:41 76 120/62 12/25/16 16:02 97.6 16 97 Room Air I&O Intake and Output 12/25/16 07:00 Intake Total 720 ml Balance 720 ml Intake Oral 720 ml # Voids 3 # Bowel Movements 1 Labs: Laboratory Tests Test 12/25/16 07:17 12/25/16 09:30 12/25/16 11:39 12/25/16 16:56 Glucose (Fingerstick) 78mg/dL (70-99) 96mg/dL (70-99) 74mg/dL (70-99) Sodium Level 145mmol/L (136-145) Potassium Level 4.2mmol/L (3.5-5.1) Chloride Level 105mmol/L (98-107) Carbon Dioxide Level 32mmol/L (21-32) Anion Gap 8 (6-14) Blood Urea Nitrogen 32mg/dL (7-20) H Creatinine 0.9mg/dL (0.6-1.0) Estimated GFR (Cockcroft-Gault) 60.6 BUN/Creatinine Ratio 36 (6-20) H Glucose Level 104mg/dL (70-99) H Calcium Level 9.5mg/dL (8.5-10.1) Magnesium Level 2.2mg/dL (1.8-2.4) Total Bilirubin 0.3mg/dL (0.2-1.0) Aspartate Amino Transferase (AST) 17U/L (15-37) Alanine Aminotransferase (ALT) 17U/L (14-59) Alkaline Phosphatase 153U/L (46-116) H Total Protein 8.0g/dL (6.4-8.2) Albumin 3.3g/dL (3.4-5.0) L Albumin/Globulin Ratio 0.7 (1.0-1.7) L Test 12/25/16 18:57 Glucose (Fingerstick) 90mg/dL (70-99) Current Medications: Meds: Current Medications Acetaminophen (Tylenol) 650 mg PRN Q6HRS PRN PO PAIN / TEMP; Start 12/06/16 at 20:15; Status Cancel Multi-Ingredient Ointment (Analgesic [place]) 1 dain PRN QID PRN TP MUSCLE PAIN; Start 12/06/16 at 20:15 Al Hydroxide/Mg Hydroxide (Mylanta Plus Xs) 15 ml PRN AFTMEALHC PRN PO DYSPEPSIA; Start 12/06/16 at 20:15 Magnesium Hydroxide (Milk Of Magnesia) 2,400 mg PRN QHS PRN PO CONSTIPATION Last administered on 12/23/16 20:03; Start 12/06/16 at 20:15 Citalopram Hydrobromide (Celexa) 20 mg HS PO Last administered on 12/25/16 19: 41; Start 12/06/16 at 21:00 Memantine (Namenda) 10 mg BID PO Last administered on 12/25/16 19:41; Start at 21:00 Oxcarbazepine (Trileptal) 300 mg BID PO Last administered on 12/13/16 08:33; Start 12/06/16 at 21:00; Stop 12/13/16 at 18:38; Status DC Ziprasidone (Geodon) 40 mg BIDWMEALS PO Last administered on 12/11/16 16:51; Start 12/06/16 at 21:00; Stop 12/12/16 at 05:19; Status DC Lamotrigine (LaMICtal) 200 mg QHS PO ; Start 12/06/16 at 21:30; Status Cancel Non-Formulary Medication 1 ea QHS PO ; Start 12/07/16 at 21:00; Status Cancel Lamotrigine (LaMICtal) 100 mg BID PO Last administered on 12/07/16 08:37; Start 12/06/16 at 22:15; Stop 12/07/16 at 18:21; Status DC Atorvastatin Calcium (Lipitor) 80 mg QHS PO Last administered on 12/25/16 19:39 ; Start 12/06/16 at 22:00 Metformin HCl (Glucophage) 1,000 mg BIDWMEALS PO Last administered on 12/25/16 16:48; Start 12/07/16 at 08:00 Hydroxyzine HCl (Atarax) 50 mg PRN Q2HR PRN PO PSYCHOSIS Last administered on 10:58; Start 12/06/16 at 22:00 Olanzapine (Zyprexa Zydis) 5 mg PRN Q2HR PRN PO PSYCHOSIS Last administered on 12/21/16 15:54; Start 12/06/16 at 22:00 Acetaminophen (Tylenol) 650 mg PRN Q6HRS PRN PO fever/pain; Start 12/07/16 at 06:00 Acetaminophen (Tylenol Arthritis) 650 mg DAILY PO Last administered on 08:34; Start 12/07/16 at 09:00; Stop 12/23/16 at 14:55; Status DC Cyclosporine (Restasis) 1 drop BID OU Last administered on 12/25/16 20:19; Start 12/07/16 at 09:00 Ferrous Sulfate (Feosol) 325 mg BID PO Last administered on 12/25/16 19:43; Start 12/07/16 at 09:00 Lisinopril (Prinivil) 5 mg DAILY PO Last administered on 12/25/16 07:53; Start 12/07/16 at 09:00 Magnesium Oxide (Magnesium Oxide) 400 mg TID PO Last administered on 12/25/16 19:39; Start 12/07/16 at 09:00 Metoprolol Tartrate (Lopressor) 12.5 mg BID PO Last administered on 12/25/16 19 :41; Start 12/07/16 at 09:00 Oxybutynin Chloride (Ditropan) 2.5 mg DAILY PO Last administered on 12/25/16 07 :52; Start 12/07/16 at 09:00 Polyethylene Glycol (miraLAX) 17 gm BID PO Last administered on 12/25/16 19:36 ; Start 12/07/16 at 09:00 Ropinirole HCl (Requip) 0.5 mg TID PO Last administered on 12/25/16 19:43; Start 12/07/16 at 09:00 Benztropine Mesylate (Cogentin) 2 mg BID PO Last administered on 12/25/16 19:43 ; Start 12/07/16 at 09:00 Calcium/Vitamin D (Oscal D 500mg/ 200uts) 1 tab DAILY PO Last administered on 07:51; Start 12/07/16 at 09:00 Artificial Tears (Artificial Tears) 1 drop DAILY OU Last administered on 07:54; Start 12/07/16 at 09:00 Non-Formulary Medication 1 each PRN QHS PRN OU DRY EYE; Start 12/07/16 at 06:00 ; Status UNV Docusate Sodium (Colace) 200 mg PRN QHS PRN PO CONSTIPATION; Start 12/07/16 at 06:15 Non-Formulary Medication 2,400 mg PRN DAILY PRN PO CONSTIPATION; Start at 06:00; Status UNV Pantoprazole Sodium (Protonix) 40 mg DAILYAC PO Last administered on 12/25/16 07:51; Start 12/07/16 at 07:30 Trazodone HCl (Desyrel) 100 mg 1X ONCE PO Last administered on 12/07/16 06:18 ; Start 12/07/16 at 06:30; Stop 12/07/16 at 06:31; Status DC Trazodone HCl (Desyrel) 100 mg PRN QHS PRN PO INSOMNIA; Start 12/07/16 at 06:00 Divalproex Sodium (Depakote Er) 500 mg QHS PO Last administered on 12/11/16 20 :48; Start 12/07/16 at 21:00; Stop 12/12/16 at 13:16; Status DC Trazodone HCl (Desyrel) 100 mg QHS PO Last administered on 12/25/16 19:42; Start 12/07/16 at 21:00 Divalproex Sodium (Depakote Er) 500 mg HS PO Last administered on 12/25/16 19: 42; Start 12/12/16 at 21:00 Divalproex Sodium (Depakote Er) 250 mg HS PO Last administered on 12/25/16 19: 43; Start 12/12/16 at 21:00 Quetiapine Fumarate (SEROquel) 50 mg HS PO Last administered on 12/13/16 21:42 ; Start 12/12/16 at 21:00; Stop 12/14/16 at 18:24; Status DC Aripiprazole (Abilify) 5 mg DAILY PO Last administered on 12/22/16 08:10; Start 12/15/16 at 09:00; Stop 12/22/16 at 18:22; Status DC Saliva Substitute (Biotene Dry Mouth) 1 dain PRN Q15MIN PRN PO DRY MOUTH Last administered on 12/25/16 20:19; Start 12/16/16 at 18:00 Aripiprazole (Abilify) 10 mg HS PO Last administered on 12/25/16 19:42; Start 12/22/16 at 21:00 Acetaminophen (Tylenol) 650 mg DAILY PO Last administered on 12/25/16 07:52; Start 12/24/16 at 09:00 Saliva Substitute (Biotene Dry Mouth) 1 dain PRN TID PRN PO DRY MOUTH; Start 12/23/16 at 18:00 Active Scripts Active Reported Omeprazole 40 Mg Capsule.dr 40 Mg PO DAILY Artificial Tears (Dextran 70/Hypromellose) 1 Each Droperette 1 Each OU DAILY Artificial Tears (Dextran 70/Hypromellose) 1 Each Droperette 1 Each OU PRN QHS PRN Arthritis Pain (Acetaminophen) 650 Mg Tablet.er 650 Mg PO DAILY Metoprolol Succinate ( Xl ) (Metoprolol Succinate) 25 Mg Tab.er.24h 12.5 Mg PO BID Metformin Hcl 1,000 Mg Tablet 1,000 Mg PO BID Lisinopril 5 Mg Tablet 5 Mg PO DAILY Ferrous Sulfate 325 Mg Tablet 325 Mg PO BID Geodon (Ziprasidone Hcl) 40 Mg Capsule 40 Mg PO BID Give with food Oxcarbazepine 300 Mg Tablet 300 Mg PO BID Magnesium Oxide 400 Mg Tablet 400 Mg PO TID Namenda (Memantine Hcl) 10 Mg Tablet 10 Mg PO BID Lipitor (Atorvastatin Calcium) 80 Mg Tablet 80 Mg PO QHS Ropinirole Hcl 0.5 Mg Tablet 0.5 Mg PO TID Polyethylene Glycol 3350 17 Gm Powd.pack 17 Gm PO BID Oxybutynin Chloride 5 Mg Tablet 2.5 Mg PO DAILY Milk Of Magnesia (Magnesium Hydroxide) 2,400 Mg/10 Ml Oral.susp 2,400 Mg PO PRN DAILY PRN Lamotrigine 200 Mg Tab.er.24 200 Mg PO HS Docusate Sodium 100 Mg Tablet 200 Mg PO PRN HS PRN Restasis (Cyclosporine) 1 Each Droperette 1 Drop OU BID Citalopram Hbr (Citalopram Hydrobromide) 20 Mg Tablet 20 Mg PO HS Calcitrate + Vit D Caplet (Calcium Citrate/Vitamin D3) 1 Each Tablet 1 Tab PO DAILY Benztropine Mesylate 2 Mg Tablet 2 Mg PO BID Acetaminophen 500 Mg Tablet 650 Mg PO PRN Q6HRS PRN MAXIMUM DOSE OF ACETAMINIOPHEN IS 4,000 MG IN 24 HOURS FROM ALL SOURCES FOR ADULTS. LAST DOSE GIVEN: NOT GIVEN THIS ADMISSION NEXT DOSE DUE: DATE: TODAY TIME: IF NEEDED Diagnosis: Problems: (1) Impulse control disorder (2) Anxiety disorder (3) Psychosis, atypical (4) Schizoaffective disorder, chronic condition with acute exacerbation (5) Healthcare-associated pneumonia DONNELL VELASQUEZ MD Dec 25, 2016 21:09
[2016-12-26 06:04] VITALS: BP 152/78
[2016-12-26] MEDS: METOPROLOL TART IMMED RELEASE 25 MG TABLET PO SCH ×2 (08:18→20:07)
[2016-12-26] MEDS: PANTOPRAZOLE 40 MG TABLET. PO SCH (08:18)
[2016-12-26] MEDS: METFORMIN 500 MG TABLET. PO SCH ×2 (08:18→17:00)
[2016-12-26] MEDS: ACETAMINOPHEN 325 MG TABLET PO SCH (08:19)
[2016-12-26] MEDS: CALCIUM CARB/VIT D3 500/200 TABLET PO SCH (08:19)
[2016-12-26] MEDS: LISINOPRIL 5 MG TABLET. PO SCH (08:19)
[2016-12-26] MEDS: FERROUS SULFATE 325 MG TABLET PO SCH ×2 (08:19→20:06)
[2016-12-26] MEDS: OXYBUTYNIN CHLORIDE 5 MG TABLET PO SCH (08:19)
[2016-12-26] MEDS: BENZTROPINE MESYLATE 1 MG TABLET PO SCH ×2 (08:20→20:05)
[2016-12-26] MEDS: POLYETHYLENE GLYCOL 3350 17 GM PACKET. PO SCH ×2 (08:20→20:05)
[2016-12-26] MEDS: MAGNESIUM OXIDE 400 MG TABLET PO SCH ×3 (08:20→20:07)
[2016-12-26] MEDS: MEMANTINE 10 MG TABLET. PO SCH ×2 (08:20→20:06)
[2016-12-26] MEDS: CYCLOSPORINE 0.05% OPTH DROPERETTE. OU SCH ×3 (08:20→21:00)
[2016-12-26] MEDS: rOPINIRole 0.5 MG TABLET. PO SCH ×3 (08:20→20:05)
[2016-12-26] MEDS: POLYVINYL ALCOHOL 1.4% OPHTH SOLUTION 15ML BOTTLE. OU SCH (08:55)
[2016-12-26] MEDS ORDERED: ARIP10TA13 PO (13:55)
[2016-12-26] MEDS ORDERED: DIVA500T4 PO ×2 (14:06)
[2016-12-26] MEDS ORDERED: HYDR50TA PO (14:08)
[2016-12-26] MEDS ORDERED: MAG30ORA2 PO (14:09)
[2016-12-26] MEDS ORDERED: OLAN5TAB5 PO (14:10)
[2016-12-26] MEDS ORDERED: METH29OI TP (14:10)
[2016-12-26] MEDS ORDERED: POLY15DR20 OP (14:12)
[2016-12-26] MEDS ORDERED: SALI44.32 PO ×2 (14:14→15:47)
[2016-12-26 14:19] VITALS: BP 124/74
[2016-12-26] MEDS ORDERED: ACET325T9 PO (15:34)
[2016-12-26 15:35] VITALS: BP 119/74
[2016-12-26] MEDS ORDERED: TRAZ100T12 PO (15:47)
[2016-12-26] MEDS: ATORVASTATIN CALCIUM 20 MG TABLET PO SCH (20:05)
[2016-12-26] MEDS: CITALOPRAM 20 MG TABLET. PO SCH (20:06)
[2016-12-26] MEDS: DIVALPROEX ER 500 MG TAB.ER.24H PO SCH (20:07)
[2016-12-26] MEDS: traZODone 100 MG TABLET. PO SCH (20:07)
[2016-12-26] MEDS: DIVALPROEX ER 250 MG TAB.ER.24H. PO SCH (20:07)
[2016-12-26] MEDS: ARIPIPRAZOLE 10 MG TABLET PO SCH (20:09)
[2016-12-26] MEDS ORDERED: CYPROHEPTADINE 4 MG TABLET. PO SCH (21:00)
--- NOTE | 2016-12-26 21:06 | PDOC ---
Exam Adrian Demential Exam: Adrian Note: Please also refer to the separate dictated note~for this date of service dictated separately.~Patient seen individually. Discussed the patient with Nursing staff reviewed the chart.~Reviewed interim history and current functioning. Reviewed vital signs,~Labs/ Radiology~and current medications noted below. Continue current treatment with the changes noted in the dictated addendum note Assessment: Vital Signs: Vital Signs Date Time Temp Pulse Resp B/P Pulse Ox O2 Delivery O2 Flow Rate FiO2 12/26/16 20:07 98 119/74 12/26/16 15:35 97.7 20 96 Room Air I&O Intake and Output 12/26/16 07:00 Intake Total 600 ml Balance 600 ml Intake Oral 600 ml # Voids 2 Labs: Laboratory Tests Test 12/26/16 07:12 12/26/16 11:01 12/26/16 16:33 12/26/16 19:15 Glucose (Fingerstick) 103mg/dL (70-99) H 100mg/dL (70-99) H 87mg/dL (70-99) 119mg/dL (70-99) H Current Medications: Meds: Current Medications Acetaminophen (Tylenol) 650 mg PRN Q6HRS PRN PO PAIN / TEMP; Start 12/06/16 at 20:15; Status Cancel Multi-Ingredient Ointment (Analgesic [place]) 1 juan r PRN QID PRN TP MUSCLE PAIN; Start 12/06/16 at 20:15 Al Hydroxide/Mg Hydroxide (Mylanta Plus Xs) 15 ml PRN AFTMEALHC PRN PO DYSPEPSIA; Start 12/06/16 at 20:15 Magnesium Hydroxide (Milk Of Magnesia) 2,400 mg PRN QHS PRN PO CONSTIPATION Last administered on 12/23/16 20:03; Start 12/06/16 at 20:15 Citalopram Hydrobromide (Celexa) 20 mg HS PO Last administered on 12/26/16 20: 06; Start 12/06/16 at 21:00 Memantine (Namenda) 10 mg BID PO Last administered on 12/26/16 20:06; Start at 21:00 Oxcarbazepine (Trileptal) 300 mg BID PO Last administered on 12/13/16 08:33; Start 12/06/16 at 21:00; Stop 12/13/16 at 18:38; Status DC Ziprasidone (Geodon) 40 mg BIDWMEALS PO Last administered on 12/11/16 16:51; Start 12/06/16 at 21:00; Stop 12/12/16 at 05:19; Status DC Lamotrigine (LaMICtal) 200 mg QHS PO ; Start 12/06/16 at 21:30; Status Cancel Non-Formulary Medication 1 ea QHS PO ; Start 12/07/16 at 21:00; Status Cancel Lamotrigine (LaMICtal) 100 mg BID PO Last administered on 12/07/16 08:37; Start 12/06/16 at 22:15; Stop 12/07/16 at 18:21; Status DC Atorvastatin Calcium (Lipitor) 80 mg QHS PO Last administered on 12/26/16 20: 05; Start 12/06/16 at 22:00 Metformin HCl (Glucophage) 1,000 mg BIDWMEALS PO Last administered on 08:18; Start 12/07/16 at 08:00 Hydroxyzine HCl (Atarax) 50 mg PRN Q2HR PRN PO PSYCHOSIS Last administered on 10:58; Start 12/06/16 at 22:00 Olanzapine (Zyprexa Zydis) 5 mg PRN Q2HR PRN PO PSYCHOSIS Last administered on 12/21/16 15:54; Start 12/06/16 at 22:00 Acetaminophen (Tylenol) 650 mg PRN Q6HRS PRN PO fever/pain; Start 12/07/16 at 06:00 Acetaminophen (Tylenol Arthritis) 650 mg DAILY PO Last administered on 08:34; Start 12/07/16 at 09:00; Stop 12/23/16 at 14:55; Status DC Cyclosporine (Restasis) 1 drop BID OU Last administered on 12/26/16 20:05; Start 12/07/16 at 09:00 Ferrous Sulfate (Feosol) 325 mg BID PO Last administered on 12/26/16 20:06; Start 12/07/16 at 09:00 Lisinopril (Prinivil) 5 mg DAILY PO Last administered on 12/26/16 08:19; Start 12/07/16 at 09:00 Magnesium Oxide (Magnesium Oxide) 400 mg TID PO Last administered on 12/26/16 20:07; Start 12/07/16 at 09:00 Metoprolol Tartrate (Lopressor) 12.5 mg BID PO Last administered on 12/26/16 20:07; Start 12/07/16 at 09:00 Oxybutynin Chloride (Ditropan) 2.5 mg DAILY PO Last administered on 12/26/16 08:19; Start 12/07/16 at 09:00 Polyethylene Glycol (miraLAX) 17 gm BID PO Last administered on 12/26/16 20:05 ; Start 12/07/16 at 09:00 Ropinirole HCl (Requip) 0.5 mg TID PO Last administered on 12/26/16 20:05; Start 12/07/16 at 09:00 Benztropine Mesylate (Cogentin) 2 mg BID PO Last administered on 12/26/16 20: 05; Start 12/07/16 at 09:00 Calcium/Vitamin D (Oscal D 500mg/ 200uts) 1 tab DAILY PO Last administered on 08:19; Start 12/07/16 at 09:00 Artificial Tears (Artificial Tears) 1 drop DAILY OU Last administered on 08:55; Start 12/07/16 at 09:00 Non-Formulary Medication 1 each PRN QHS PRN OU DRY EYE; Start 12/07/16 at 06:00 ; Status UNV Docusate Sodium (Colace) 200 mg PRN QHS PRN PO CONSTIPATION; Start 12/07/16 at 06:15 Non-Formulary Medication 2,400 mg PRN DAILY PRN PO CONSTIPATION; Start at 06:00; Status UNV Pantoprazole Sodium (Protonix) 40 mg DAILYAC PO Last administered on 12/26/16 08:18; Start 12/07/16 at 07:30 Trazodone HCl (Desyrel) 100 mg 1X ONCE PO Last administered on 12/07/16 06:18 ; Start 12/07/16 at 06:30; Stop 12/07/16 at 06:31; Status DC Trazodone HCl (Desyrel) 100 mg PRN QHS PRN PO INSOMNIA; Start 12/07/16 at 06:00 Divalproex Sodium (Depakote Er) 500 mg QHS PO Last administered on 12/11/16 20 :48; Start 12/07/16 at 21:00; Stop 12/12/16 at 13:16; Status DC Trazodone HCl (Desyrel) 100 mg QHS PO Last administered on 12/26/16 20:07; Start 12/07/16 at 21:00 Divalproex Sodium (Depakote Er) 500 mg HS PO Last administered on 12/26/16 20: 07; Start 12/12/16 at 21:00 Divalproex Sodium (Depakote Er) 250 mg HS PO Last administered on 12/26/16 20: 07; Start 12/12/16 at 21:00 Quetiapine Fumarate (SEROquel) 50 mg HS PO Last administered on 12/13/16 21:42 ; Start 12/12/16 at 21:00; Stop 12/14/16 at 18:24; Status DC Aripiprazole (Abilify) 5 mg DAILY PO Last administered on 12/22/16 08:10; Start 12/15/16 at 09:00; Stop 12/22/16 at 18:22; Status DC Saliva Substitute (Biotene Dry Mouth) 1 juan r PRN Q15MIN PRN PO DRY MOUTH Last administered on 12/25/16 20:19; Start 12/16/16 at 18:00 Aripiprazole (Abilify) 10 mg HS PO Last administered on 12/26/16 20:09; Start 12/22/16 at 21:00 Acetaminophen (Tylenol) 650 mg DAILY PO Last administered on 12/26/16 08:19; Start 12/24/16 at 09:00 Saliva Substitute (Biotene Dry Mouth) 1 juan r PRN TID PRN PO DRY MOUTH; Start 12/23/16 at 18:00 Cyproheptadine HCl (Periactin) 2 mg HS PO Last administered on 12/26/16 20:14 ; Start 12/26/16 at 21:00 Active Scripts Active Reported Trazodone Hcl 100 Mg Tablet 1 Tab PO PRN QHS PRN Biotene Oralbalance (Saliva Stimulant Agents Comb.2) 44.3 Ml Liquid 1 Applic PO PRN TID PRN Tylenol (Acetaminophen) 325 Mg Tablet 650 Mg PO DAILY Biotene Oralbalance (Saliva Stimulant Agents Comb.2) 44.3 Ml Liquid 1 Juan R PO PRN Q15MIN PRN Polyvinyl Alcohol 15 Ml Drops 1 Drop OP DAILY Zyprexa Zydis (Olanzapine) 5 Mg Tab.rapdis 5 Mg PO PRN Q2HR PRN Analgesic [place] (Methyl Salicylate/Menthol) 29 Gm Oint...g. 1 Juan R TP PRN QID PRN Mag-Al Plus Xs Suspension (Mag Hydrox/Al Hydrox/Simeth) 30 Ml Oral.susp 15 Ml PO PRN AFTMEALHC PRN Hydroxyzine Hcl 50 Mg Tablet 50 Mg PO PRN Q2HR PRN Depakote Er (Divalproex Sodium) 500 Mg Tab.er.24h 3 Tab PO QHS Depakote Er (Divalproex Sodium) 500 Mg Tab.er.24h 1 Tab PO HS Abilify (Aripiprazole) 10 Mg Tablet 1 Tab PO HS Omeprazole 40 Mg Capsule.dr 40 Mg PO DAILY Artificial Tears (Dextran 70/Hypromellose) 1 Each Droperette 1 Each OU DAILY Artificial Tears (Dextran 70/Hypromellose) 1 Each Droperette 1 Each OU PRN QHS PRN Arthritis Pain (Acetaminophen) 650 Mg Tablet.er 650 Mg PO DAILY Metoprolol Succinate ( Xl ) (Metoprolol Succinate) 25 Mg Tab.er.24h 12.5 Mg PO BID Metformin Hcl 1,000 Mg Tablet 1,000 Mg PO BID Lisinopril 5 Mg Tablet 5 Mg PO DAILY Ferrous Sulfate 325 Mg Tablet 325 Mg PO BID Geodon (Ziprasidone Hcl) 40 Mg Capsule 40 Mg PO BID Give with food Oxcarbazepine 300 Mg Tablet 300 Mg PO BID Magnesium Oxide 400 Mg Tablet 400 Mg PO TID Namenda (Memantine Hcl) 10 Mg Tablet 10 Mg PO BID Lipitor (Atorvastatin Calcium) 80 Mg Tablet 80 Mg PO QHS Ropinirole Hcl 0.5 Mg Tablet 0.5 Mg PO TID Polyethylene Glycol 3350 17 Gm Powd.pack 17 Gm PO BID Oxybutynin Chloride 5 Mg Tablet 2.5 Mg PO DAILY Milk Of Magnesia (Magnesium Hydroxide) 2,400 Mg/10 Ml Oral.susp 2,400 Mg PO PRN DAILY PRN Lamotrigine 200 Mg Tab.er.24 200 Mg PO HS Docusate Sodium 100 Mg Tablet 200 Mg PO PRN HS PRN Restasis (Cyclosporine) 1 Each Droperette 1 Drop OU BID Citalopram Hbr (Citalopram Hydrobromide) 20 Mg Tablet 20 Mg PO HS Calcitrate + Vit D Caplet (Calcium Citrate/Vitamin D3) 1 Each Tablet 1 Tab PO DAILY Benztropine Mesylate 2 Mg Tablet 2 Mg PO BID Acetaminophen 500 Mg Tablet 650 Mg PO PRN Q6HRS PRN MAXIMUM DOSE OF ACETAMINIOPHEN IS 4,000 MG IN 24 HOURS FROM ALL SOURCES FOR ADULTS. LAST DOSE GIVEN: NOT GIVEN THIS ADMISSION NEXT DOSE DUE: DATE: TODAY TIME: IF NEEDED Diagnosis: Problems: (1) Anxiety disorder (2) Impulse control disorder (3) Psychosis, atypical (4) Schizoaffective disorder, chronic condition with acute exacerbation (5) Healthcare-associated pneumonia DONNELL VELASQUEZ MD Dec 26, 2016 21:06
[2016-12-26 21:46] VITALS: BP 125/51
--- NOTE | 2016-12-27 01:07 | PN ---
DATE: 12/25/2016 PSYCHIATRIC PROGRESS NOTE This is a late entry of 12/25/2016 covers elements not covered in my initial note. SUBJECTIVE: The patient has been somewhat irritable, had half a sandwich for dinner, BUN is better from 35 to 32. Sodium and chloride are unremarkable. Appetite is little better. REVIEW OF SYSTEMS: Ambulation impaired in a wheelchair. No CV, , pulmonary, eye, ENT system symptoms on review. MENTAL STATUS EXAM: Oriented to herself and situation. Speech low in rate and rhythm, low in volume. Abstraction fair, computation impaired, language function intact. Attention span short. No suicidal or homicidal ideation. LABORATORY DATA: Reviewed. IMPRESSION: Unchanged from initial note. PLAN: Continue current psychotropics. Adjust as clinically indicated. MAN Gracia VELASQUEZ MD DR: JUSTIN/pattie JOB#: [id number] / [id number]
[2016-12-27 06:23] VITALS: BP 122/67
[2016-12-27] MEDS: PANTOPRAZOLE 40 MG TABLET. PO SCH (07:58)
[2016-12-27] MEDS: METFORMIN 500 MG TABLET. PO SCH ×2 (08:00→17:00)
[2016-12-27] MEDS: MAGNESIUM OXIDE 400 MG TABLET PO SCH ×3 (09:00→14:57)
[2016-12-27] MEDS: MEMANTINE 10 MG TABLET. PO SCH (09:00)
[2016-12-27] MEDS: OXYBUTYNIN CHLORIDE 5 MG TABLET PO SCH (09:00)
[2016-12-27] MEDS: POLYETHYLENE GLYCOL 3350 17 GM PACKET. PO SCH (09:00)
[2016-12-27] MEDS: rOPINIRole 0.5 MG TABLET. PO SCH ×3 (09:00→14:57)
[2016-12-27] MEDS: LISINOPRIL 5 MG TABLET. PO SCH (09:00)
[2016-12-27] MEDS: METOPROLOL TART IMMED RELEASE 25 MG TABLET PO SCH (09:00)
[2016-12-27] MEDS: BENZTROPINE MESYLATE 1 MG TABLET PO SCH (09:00)
[2016-12-27] MEDS: ACETAMINOPHEN 325 MG TABLET PO SCH (09:00)
[2016-12-27] MEDS: CYCLOSPORINE 0.05% OPTH DROPERETTE. OU SCH (09:00)
[2016-12-27] MEDS: FERROUS SULFATE 325 MG TABLET PO SCH (09:00)
[2016-12-27] MEDS: CALCIUM CARB/VIT D3 500/200 TABLET PO SCH (09:00)
[2016-12-27] MEDS: POLYVINYL ALCOHOL 1.4% OPHTH SOLUTION 15ML BOTTLE. OU SCH (09:00)
--- NOTE | 2016-12-27 11:19 | RAD ---
KUB, 12/27/2016: History: Abdominal pain There are surgical clips in the right upper quadrant. There is a mass effect in the pelvis which may be due to a distended urinary bladder. There are mildly prominent gas-filled large bowel loops in the sigmoid and hepatic flexure regions. There is only small amount of gas in other scattered bowel loops without bowel distention. There are scattered vascular calcifications. Mild degenerative change is evident in the spine. IMPRESSION: 1. Mildly increased gas in portions of the colon suggesting an atonic colon. 2. Midline pelvic density which may be due to distended urinary bladder, although some other type of pelvic mass such as an enlarged uterus cannot excluded.
[2016-12-27 12:26] LABS: BASO # 0.1 x10^3/uL (0.0-0.2); BASO % 1 % (0-3); EOS % 0 % (0-3); HEMATOCRIT 36.9 % (36.0-47.0); HEMOGLOBIN 11.7 g/dL (12.0-15.5); LYMPH # 1.4 x10^3/uL (1.0-4.8); LYMPH % 9 % (24-48); MEAN CORPUSCULAR HEMOGLOBIN 29 pg (25-35); MEAN CORPUSCULAR HGB CONC 32 g/dL (31-37); MEAN CORPUSCULAR VOLUME 90 fL (79-100); MONO % 13 % (0-9); NEUT # 11.4 x10^3uL (1.8-7.7); NEUT % 77 % (31-73); PLATELET COUNT 446 x10^3/uL (140-400); RED CELL DISTRIBUTION WIDTH 17.4 % (11.5-14.5); WHITE BLOOD COUNT 14.9 x10^3/uL (4.0-11.0)
[2016-12-27 12:29] LABS: ALBUMIN 3.2 g/dL (3.4-5.0); ALBUMIN/GLOBULIN RATIO 0.7 (1.0-1.7); CALCIUM 9.4 mg/dL (8.5-10.1); CREATININE 1.2 mg/dL (0.6-1.0); GFR 43.4; POTASSIUM 4.5 mmol/L (3.5-5.1); TOTAL BILIRUBIN 0.5 mg/dL (0.2-1.0); TOTAL PROTEIN 7.8 g/dL (6.4-8.2)
[2016-12-27 12:55] LABS: % BANDS 18 % (0-9); % EOS 2 % (0-5); % LYMPHS 6 % (24-48); % METAS 1 % (0-0); % MONOS 7 % (0-10); % SEGS 66 % (35-66)
[2016-12-27 12:58] LABS: ANISOCYTOSIS SLIGHT; PLATELET CLUMP PRESENT; PLT ESTIMATE INCREASED (ADEQUATE)
[2016-12-27 13:05] LABS: BACTERIA,URINE FEW /HPF (0-FEW); BILIRUBIN,URINE NEG (NEG); CLARITY,URINE HAZY; COLOR,URINE AMBER; GLUCOSE,URINE NEG (NEG); NITRITE,URINE NEG (NEG); UROBILINOGEN,URINE 0.2 mg/dL (0.2 mg/dL)
[2016-12-27 13:06] LABS: HYALINE CASTS, URINE OCC /HPF; SQUAMOUS EPITHELIAL CELL,UR OCC /LPF
--- NOTE | 2016-12-27 14:42 | PN ---
DATE: 12/27/2016 SUBJECTIVE: The patient was seen today as nursing staffs were concerned that her abdomen is distended and she has vomited. She has been eating or drinking. Apparently, she lost about 20 pounds since her last admission here and she was apparently oriented x 3 that has also changed. PHYSICAL EXAMINATION: GENERAL: When I examined her today, she looked pale, cachectic, but no jaundice, cyanosis or thyromegaly. No jugular venous distention. No limb edema. VITAL SIGNS: Her heart rate was 84, blood pressure 122/67, temperature was 97.5, respiratory rate was 16 and oxygen saturation was 95% on room air. HEAD, EYES, EARS, NOSE AND THROAT: Normocephalic, atraumatic. NECK: Supple. HEART: Showed normal first and second heart sounds with no gallop, rub or murmur. CHEST: Clear to auscultation. No crepitation or rhonchi. ABDOMEN: Distended, soft, nontender. No guarding or rigidity. No organomegaly. Hernial orifices intact. Bowel sounds normal. NEUROLOGIC: She was demented, disoriented; however, other cranial nerves intact. She moves extremities without difficulty. PLAN: My plan is to arrange for her to send labs stat including CBC, CMP, LDH and lactic acid. We will scan her bladder to make sure that she is not retaining her urine and if her kidney function is normal and no urine retention, we would arrange for a CT scan of the abdomen and pelvis with IV contrast and decide on further management accordingly. LOIDA WOODS MD DR: JOSÉ/pattie JOB#: [id number] / [id number]
--- NOTE | 2016-12-27 15:24 | RAD ---
CT of the chest, abdomen and pelvis without contrast, 12/27/2016: History: Abdominal distention No oral or IV contrast was administered as requested. There is mild calcific plaquing of the thoracic aorta without evidence of aneurysm. Minimal coronary artery calcifications are noted. A few small mediastinal lymph nodes are present without evidence of pathologic enlargement. The evaluation of the lung parenchyma is partially compromised by patient respiratory motion artifact. There is an irregular parenchymal opacity centered in the anterior aspect of the right middle lobe. It abuts the pleura. There are streaky elongated components extending posteriorly in the right middle lobe as well as into the inferior aspect of the right upper lobe adjacent to the minor fissure. The central soft tissue component measures approximately 3 cm in greatest diameter. This appearance could be due to scarring or a neoplasm. No other pulmonary mass or significant consolidation is seen. There is no evidence of pleural fluid. Surgical clips are present in both axillary and breast regions. The gallbladder appears to be surgically absent. The unopacified liver shows no abnormality. The pancreas is atrophic with fatty change. The spleen is small. A 3.3 cm cystic area centrally in the right kidney most likely represents a parapelvic renal cyst rather than hydronephrosis. The left kidney is unremarkable. The colon is distended with semisolid stool and a small amount of gas. This process extends from the cecum down through the rectum the small bowel loops are not dilated. No free fluid or free air is evident in the abdomen or pelvis. Moderate multilevel degenerative changes are present in the spine. IMPRESSION: 1. Generalized distention of the colon with semisolid stool. 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 An obstructive process at the anal level is less likely. 2. Irregular right middle lobe pleural-parenchymal opacity suggesting confluent scarring versus a pulmonary neoplasm. PQRS Compliance Statement: One or more of the following individualized dose reduction techniques were utilized for this examination: 1. Automated exposure control 2. Adjustment of the mA and/or kV according to patient size 3. Use of iterative reconstruction technique
[2016-12-27 15:47] VITALS: BP 108/58
--- NOTE | 2016-12-28 04:49 | PN ---
DATE: 12/26/2016 PSYCHIATRIC PROGRESS NOTE This is a late entry of 12/26/2016. Covers elements not covered in my initial note. SUBJECTIVE: The patient continues to have poor appetite and we will start Periactin 2 mg at bedtime. She remains withdrawn, not overtly aggressive. REVIEW OF SYSTEMS: Ambulation impaired, in her wheelchair. Poor appetite. No CV, , pulmonary, eye system symptoms on review. MENTAL STATUS EXAM: Oriented to herself and situation. Speech low in rate and rhythm, low in volume, often responses monosyllabic. Abstraction fair, computation impaired, language function intact. Mood and affect somewhat withdrawn. LABORATORY DATA: Reviewed. IMPRESSION: Unchanged from initial note. PLAN: Continue current psychotropics. Add the Periactin to stimulate appetite. Adjust further as clinically indicated. MAN Gracia VELASQUEZ MD DR: JUSTIN/pattie JOB#: [id number] / [id number]
--- NOTE | 2016-12-28 18:56 | DS ---
DATE OF DISCHARGE: 12/27/2016 DISCHARGE SUMMARY/PSYCHIATRIC PROGRESS NOTE This is late entry of 12/27/2016. REASON FOR ADMISSION: Please refer to the admission history for details. Briefly, the patient is a 76-year-old female who was admitted from [facility] Emergency Room where she presented from [facility] on account of increased agitation, delusions, being aggressive towards staff, grandiose. This was within the context of her diagnosis of schizoaffective disorder, bipolar type with psychotic features. She was deemed a potential danger unmanageable at the facility thus resulting in this referral. SIGNIFICANT FINDINGS AND CLINICAL COURSE: Following admission, the patient was seen daily individually by myself from a psychiatric standpoint, followed medically per Dr. Salazar/Dr Pacheco. The patient was extremely psychotic, agitated, yelling, screaming, initially even during my first visit back with her. Adjustments were made in her psychotropics and from a psychiatric standpoint, she seemed to be doing better on a combination of Namenda 10 b.i.d., Celexa 20 mg a day, Atarax and Zyprexa p.r.n., Depakote ER 750 at bedtime with a therapeutic level of 74, trazodone 100 at bedtime, may repeat and Cogentin 2 mg b.i.d., Abilify 10 mg a day. She was also on Biotene mouthwash 3 times a day for dry mouth. At about this stage of her hospitalization she was having very poor appetite, was withdrawn. Labs showed that she was septic and dehydrated and was transferred to the Medical/Surgical floor for medical stabilization per Dr. Pacheco. Prior to discharge, on 12/27/2016, ambulation impaired. No CV, , eye, ENT or pulmonary system symptoms on review. She is quite withdrawn in her wheelchair. MENTAL STATUS EXAMINATION: Oriented to herself. Speech, low in rate and rhythm, low in volume. Abstraction fair, computation impaired, language function intact, attention span short. Mood and affect withdrawn, labile at times, still intermittently psychotic. LABORATORY DATA: Reviewed. FINAL DIAGNOSES: Schizoaffective disorder, bipolar type, mixed with psychotic features; anxiety disorder, unspecified; impulse control disorder, unspecified. Rest diagnoses as above including sepsis and dehydration. DISCHARGE MEDICATIONS: Please refer to the MRAD. DISPOSITION: Once the patient is medically stable we will consider whether she meets criteria to be back on our unit or she may return to the longterm if she is psychiatrically stable. DONNELL VELASQUEZ MD DR: Jamal JOB#: [id number] / [id number]
== END 2016-12-27 18:29 | disposition short-term general hospital (02) | DRG 885 ==
LOC: GEROPSY 19:30
PROVIDERS: ADMIT Psychiatry & Neurology Psychiatry; ATTEND Psychiatry & Neurology Psychiatry
DX: F25.0 Schizoaffective disorder, bipolar type (principal); E11.22 Type 2 diabetes mellitus with diabetic chronic kidney disease; E61.1 Iron deficiency; E78.5 Hyperlipidemia, unspecified; E86.0 Dehydration; F41.9 Anxiety disorder, unspecified; F63.9 Impulse disorder, unspecified; I12.9 Hypertensive chronic kidney disease with stage 1 through stage 4 chronic kidney disease, or unspecified chronic kidney disease; K21.9 Gastro-esophageal reflux disease without esophagitis; N18.9 Chronic kidney disease, unspecified; F03.90 Unspecified dementia, unspecified severity, without behavioral disturbance, psychotic disturbance, mood disturbance, and anxiety; F31.60 Bipolar disorder, current episode mixed, unspecified; Y95 Nosocomial condition; Z91.81 History of falling; Z91.14 Patient's other noncompliance with medication regimen; E83.42 Hypomagnesemia
CPT/HCPCS: 36415; 70450; 71250; 74000; 74176; 80053; 80061; 80164; 81001; 82306; 82607; 82947; 83036; 83540; 83550; 83605; 83615; 83735; 84436; 84443; 84480; 85007; 85027; 86592; 86593; 87086; 87186; 93005; 97110; 97116

== ENCOUNTER 2016-12-27 18:30 | Inpatient (IN) | payer MEDICARE, BC ==
[~2016-12-27] VITALS: Ht 157.5 cm; Wt 48.1 kg
[~2016-12-27 18:30] MED LIST changes: +ACET325T9 PO; +ACET650T89 PO; +ARIP10TA13 PO; +DEXT1DRO7 OU; +DIVA500T4 PO; +FERR-26 PO; +HYDR50TA PO; +METO25TA9 PO; +OLAN5TAB5 PO; +POLY15DR20 OP; +SALI44.32 PO; +TRAZ100T12 PO
[2016-12-27] MEDS ORDERED: BISACODYL 10 MG SUPP.RECT PR PRN (19:00)
[2016-12-27] MEDS ORDERED: PIP/TAZO PER PHARMACY MC PRN (19:00)
[2016-12-27] MEDS ORDERED: ONDANSETRON PF 4 MG/2 ML VIAL. IV PRN (19:30)
[2016-12-27] MEDS ORDERED: ACETAMINOPHEN 325 MG TABLET PO PRN (19:30)
[2016-12-27 19:31] VITALS: BP 123/53
[2016-12-27] MEDS: IV DEXTROSE 5 %-0.45 % NACL 1,000 ML IV SCH (21:21)
[2016-12-27] MEDS: PIPERACILLIN/TAZOBACTAM 3.375 GM in IV NORMAL SALINE 50ML 50 ML IV SCH (21:52)
[2016-12-27] MEDS ORDERED: IV NORMAL SALINE 250ML 250 ML ONE (21:52)
[2016-12-27 22:47] LABS: COLOR,URINE AMBER
[2016-12-27 22:48] LABS: BACTERIA,URINE FEW /HPF (0-FEW); BILIRUBIN,URINE NEG (NEG); CLARITY,URINE HAZY; GLUCOSE,URINE NEG (NEG); HYALINE CASTS, URINE MOD /HPF; NITRITE,URINE NEG (NEG); SQUAMOUS EPITHELIAL CELL,UR OCC /LPF; UROBILINOGEN,URINE 0.2 mg/dL (0.2 mg/dL)
[2016-12-28 01:13] VITALS: BP 128/69
[2016-12-28] MEDS: PIPERACILLIN/TAZOBACTAM 3.375 GM in IV NORMAL SALINE 50ML 50 ML IV SCH ×4 (03:55→21:28)
[2016-12-28] MEDS: IV DEXTROSE 5 %-0.45 % NACL 1,000 ML IV SCH (03:55)
[2016-12-28 05:11] VITALS: BP 127/64
[2016-12-28 06:51] LABS: ALBUMIN 2.6 g/dL (3.4-5.0); ALBUMIN/GLOBULIN RATIO 0.7 (1.0-1.7); CALCIUM 8.5 mg/dL (8.5-10.1); GFR 53.6; POTASSIUM 3.8 mmol/L (3.5-5.1); TOTAL BILIRUBIN 0.3 mg/dL (0.2-1.0); TOTAL PROTEIN 6.1 g/dL (6.4-8.2)
[2016-12-28 09:17] LABS: BASO % 0 % (0-3); EOS # 0.1 x10^3/uL (0.0-0.7); EOS % 1 % (0-3); HEMATOCRIT 30.3 % (36.0-47.0); HEMOGLOBIN 9.7 g/dL (12.0-15.5); LYMPH # 1.7 x10^3/uL (1.0-4.8); LYMPH % 19 % (24-48); MEAN CORPUSCULAR HEMOGLOBIN 29 pg (25-35); MEAN CORPUSCULAR HGB CONC 32 g/dL (31-37); MEAN CORPUSCULAR VOLUME 89 fL (79-100); MONO # 1.3 x10^3/uL (0.0-1.1); MONO % 14 % (0-9); NEUT # 5.9 x10^3uL (1.8-7.7); NEUT % 65 % (31-73); PLATELET COUNT 306 x10^3/uL (140-400); RED BLOOD COUNT 3.41 x10^6/uL (3.50-5.40); RED CELL DISTRIBUTION WIDTH 17.1 % (11.5-14.5); WHITE BLOOD COUNT 9.1 x10^3/uL (4.0-11.0)
[2016-12-28 11:13] VITALS: BP 120/52
[2016-12-28] MEDS ORDERED: ACETAMINOPHEN 325 MG TABLET PO PRN (14:45)
[2016-12-28] MEDS ORDERED: METHYL SALICYLATE/MENTHOL TOPICAL OINTMENT 29GM TUBE. TP PRN (14:45)
[2016-12-28] MEDS ORDERED: OLANZAPINE ZYDIS 5 MG TAB.RAPDIS PO PRN (14:45)
[2016-12-28] MEDS ORDERED: MAG HYDROX/AL HYDROX/SIMETH 30 ML ORAL.SUSP PO PRN (14:45)
[2016-12-28] MEDS ORDERED: SALIVA STIMULANT AGENTS COMB PO PRN (14:45)
[2016-12-28] MEDS ORDERED: HYDROXYZINE HCL 25 MG TABLET PO PRN (15:15)
[2016-12-28] MEDS ORDERED: DOCUSATE SODIUM 100 MG CAPSULE PO PRN (15:15)
[2016-12-28] MEDS ORDERED: SALIVA STIMULANT AGENT MOUTHWASH 237ML BOTTLE. PO PRN (15:30)
[2016-12-28] MEDS ORDERED: MAGNESIUM HYDROXIDE 2,400 MG/30 ML ORAL.SUSP. PO PRN (15:30)
[2016-12-28 15:45] VITALS: BP 146/68
[2016-12-28] MEDS: POTASSIUM CL 40MEQ IN D5W 1,000 ML IV SCH (15:52)
[2016-12-28] MEDS: FERROUS SULFATE 325 MG TABLET PO SCH (16:51)
[2016-12-28] MEDS: CALCIUM CARB/VIT D3 500/200 TABLET PO SCH (16:51)
[2016-12-28] MEDS: METFORMIN 500 MG TABLET. PO SCH (16:51)
--- NOTE | 2016-12-28 17:05 | HP ---
ADMIT DATE: 12/27/2016 HISTORY OF PRESENT ILLNESS: This is a 76-year-old female patient, who was transferred from [facility] on the account of altered mental status, recurrent bouts of nausea, vomiting, abdominal distention, and possible sepsis as well as colonic ileus. She was also noted to have urinary retention and we drained about 900 mL of urine. She was noted also to have marked leukocytosis as well as lactic acidosis and therefore, she was transferred to [address] [place] [address], where she was started on IV fluid, IV antibiotic in the form of Zosyn and has had an indwelling Cole catheter. She was also started on Dulcolax suppositories for her constipation. Her sodium was also extremely high and we did start her on D5 half normal saline. PAST MEDICAL HISTORY: Significant for type 2 diabetes, hypertension, recurrent urinary retention, probably due to neurogenic bladder; chronic kidney disease, gastroesophageal reflux disease and xerophthalmia. PAST PSYCHIATRIC HISTORY: Disease includes dementia with psychosis, schizoaffective disorder with bipolar features, depression and she has had also marked delirium. ALLERGIES: She is allergic to HALDOL, RISPERDAL and THIORIDAZINE. MEDICATIONS: She is on following medications: She is on Tylenol 650 mg every 4 hours as needed for pain or fever, aripiprazole 10 mg at bedtime, atorvastatin calcium 80 mg at bedtime, benztropine mesylate 2 mg twice a day, calcium citrate or vitamin D one tablet once a day, citalopram hydrobromide 20 mg at bedtime. She is on cyclosporine for Restasis 1 drop to both eyes twice a day, divalproex sodium 750 mg p.o. at bedtime, Colace 200 mg once a day, ferrous sulfate 325 mg twice a day, hydroxyzine pamoate 50 mg every 2 hours as needed for anxiety and agitation, lisinopril 5 mg once a day, Mylanta 15 mL every 4 hours, magnesium hydroxide for milk of magnesia 30 mL p.o. daily p.r.n. for constipation, magnesium oxide 400 mg 3 times a day, Namenda 10 mg b.i.d., metformin 1000 mg twice a day with meals. She is also on metoprolol succinate 25 mg once a day, olanzapine for Zyprexa Zydis 5 mg every 2 hours, omeprazole 40 mg once a day, oxybutynin chloride 2.5 mg once a day, polyethylene glycol 17 g twice a day, polyvinyl alcohol 1 drop to both eyes daily, Requip 0.5 mg 3 times a day, saliva stimulant agent for Biotene one application 1 every hour as needed, and trazodone 100 mg at bedtime. FAMILY HISTORY: Unremarkable. SOCIAL HISTORY: She is a resident at [facility]. She does not smoke, drink alcohol or use any recreational drugs. REVIEW OF SYSTEMS: Unobtainable. The patient was extremely confused yesterday. She is disoriented. Normally, she is alert and oriented x 3. She was even able to walk and yesterday was basically wheelchair bound. LABORATORY DATA: Her lab work while at [facility] showed that her white cell count was 14,900; hemoglobin 11.7, hematocrit 37, MCV 90 and platelet count of 446,000 with normal manual differential. Her chemistry showed a serum sodium of 146, potassium 4.5, chloride 106, bicarbonate 24, anion gap of 16, BUN of 53, creatinine 1.2. Estimated GFR was 43 mL per minute. Her glucose was 110. Her lactic acid was 3.9. Calcium was 9.4. Total bilirubin, AST, ALT, and alkaline phosphatase were normal. Her lactate dehydrogenase 170, total protein was 7.8, albumin 3.2. Urinalysis was unremarkable. IMAGING: We did a KUB first, which showed that she has mild increased gas in the portions of the colon suggesting an atonic colon, mild pelvic density, which may be due to distended urinary bladder, although some other type of pelvic mass such has an enlarged uterus cannot be excluded. So we did a CT scan of the chest, abdomen and pelvis that showed that there is generalized distention of the colon with semisolid stool. The finding most likely reflects an atonic colon and obstructive process at the anal level right mid lobe pleural parenchymal opacities suggesting confluence scarring versus pulmonary neoplasm. The gallbladder appears to be surgically absent. The unopacified liver shows no abnormality, the pancreas is atrophic with fatty changes, the spleen is small, the colon is distended with semisolid stool and a small amount of gas extends from the cecum down through the rectum. The small bowel loops are not dilated. No free fluid or free air is evident in the abdomen or pelvis. ASSESSMENT AND PLAN: Given that the patient has altered mental status, leukocytosis and lactic acidosis, the patient was transferred down to [address] [place] [address], started on IV fluid, IV Zosyn. She has had urinary retention, so we did place a Cole catheter and we drained about 900. She was started on IV Zosyn for possibility of healthcare-associated pneumonia and we will repeat all her lab work tomorrow and decide on further management accordingly. LOIDA WOODS MD DR: JOSÉ/pattie JOB#: [id number] / [id number]
[2016-12-28 20:04] VITALS: BP 134/79
--- NOTE | 2016-12-28 20:08 | PN ---
DATE: 12/28/2016 SUBJECTIVE: The patient is resting slightly propped up in her recliner in no apparent distress. She is definitely more awake, alert, continued to be slightly confused. OBJECTIVE: GENERAL: When I examined her, she looked well, slightly pale, but no jaundice, cyanosis or thyromegaly. No jugular venous distention. No limb edema. VITAL SIGNS: Her heart rate was 75, blood pressure 120/52, temperature was 97.3, respiratory rate was 20 and oxygen saturation was 99%. HEAD, EYES, EARS, NOSE AND THROAT: Showed normocephalic, atraumatic. NECK: Supple. HEART: Showed normal first and second heart sounds with no gallop, rub or murmur. CHEST: Clear to auscultation. No crepitation or rhonchi. ABDOMEN: Slightly distended, definitely much less than yesterday. No guarding or rigidity. No organomegaly. Hernial orifices intact. Bowel sounds normal. NEUROLOGIC: Although, she continued to be slightly confused, she is definitely more awake, alert and responsive. All her cranial nerves are intact. She moves extremities without difficulty. She apparently was able to walk with a walker. She did have an indwelling Cole catheter. LABORATORY DATA: Her lab work this morning showed a white cell count down to 9100 from 14,000, hemoglobin 9.7, hematocrit 30.3, MCV 89 and platelet count of 306,000 with normal manual differential. Her chemistry showed a serum sodium 149, potassium 3.9, chloride 111, bicarbonate 33, anion gap of 5, BUN is down to 50 and creatinine is down to 1. Estimated GFR was up to 54 mL per minute. Her glucose was 138. Calcium was 8.5. Total bilirubin, AST, ALT, alkaline phosphatase were normal. Lactate dehydrogenase was normal at 157. Total protein was 6.1. Albumin was 2.9. Her lactic acid is down from 3.9 to 1.2. Urinalysis was essentially unremarkable so far. The blood culture and urine culture are still pending at the time of this dictation. ASSESSMENT: Toxic metabolic encephalopathy, resolving; hypernatremia, slightly worse; sepsis, improving; her white cell count is down, her lactic acid is down, acute kidney injury also resolving. Her creatinine is down to 1 mg. BUN is also improving. PLAN: My plan is to discontinue her D5 half normal and put her on D5 only and repeat all her labs tomorrow. Continue with ENMANUEL Redd, await the results of the culture and sensitivity. LOIDA WOODS MD DR: JOSÉ/pattie JOB#: [id number] / [id number]
--- NOTE | 2016-12-28 20:53 | PDOC ---
Exam Adrian Demential Exam: Adrian Note: Please also refer to the separate dictated note~for this date of service dictated separately.~Patient seen individually. Discussed the patient with Nursing staff reviewed the chart.~Reviewed interim history and current functioning. Reviewed vital signs,~Labs/ Radiology~and current medications noted below. Continue current treatment with the changes noted in the dictated addendum note Assessment: Vital Signs: Vital Signs Date Time Temp Pulse Resp B/P Pulse Ox O2 Delivery O2 Flow Rate FiO2 12/28/16 20:04 97.4 72 18 134/79 98 Room Air I&O Intake and Output 12/28/16 07:00 Intake Total 920 ml Output Total 850 ml Balance 70 ml IV Total 920 ml Output Urine Total 850 ml Labs: Laboratory Tests Test 12/27/16 21:48 12/28/16 06:12 12/28/16 07:20 12/28/16 08:54 Urine Collection Type Unknown Urine Color Chasity Urine Clarity Hazy Urine pH 7.0 Urine Specific [place] 1.020 Urine Protein 30 mg/dl (NEG-TRACE) Urine Glucose (UA) Negmg/dL (NEG) Urine Ketones (Stick) 40mg/dL (NEG) Urine Blood Neg (NEG) Urine Nitrite Neg (NEG) Urine Bilirubin Neg (NEG) Urine Urobilinogen Dipstick 0.2mg/dL (0.2 mg/dL) Urine Leukocyte Esterase Trace (NEG) Urine RBC 1-2/HPF (0-2) Urine WBC 5-10/HPF (0-4) Urine Squamous Epithelial Cells Occ/LPF Urine Bacteria Few/HPF (0-FEW) Urine Hyaline Casts Mod/HPF Urine Mucus Mod/LPF Sodium Level 149mmol/L (136-145) H Potassium Level 3.8mmol/L (3.5-5.1) Chloride Level 111mmol/L (98-107) H Carbon Dioxide Level 33mmol/L (21-32) H Anion Gap 5 (6-14) L Blood Urea Nitrogen 50mg/dL (7-20) H Creatinine 1.0mg/dL (0.6-1.0) Estimated GFR (Cockcroft-Gault) 53.6 BUN/Creatinine Ratio 50 (6-20) H Glucose Level 138mg/dL (70-99) H Calcium Level 8.5mg/dL (8.5-10.1) Total Bilirubin 0.3mg/dL (0.2-1.0) Aspartate Amino Transferase (AST) 15U/L (15-37) Alanine Aminotransferase (ALT) 14U/L (14-59) Alkaline Phosphatase 117U/L (46-116) H Lactate Dehydrogenase 157U/L (81-234) Total Protein 6.1g/dL (6.4-8.2) L Albumin 2.6g/dL (3.4-5.0) L Albumin/Globulin Ratio 0.7 (1.0-1.7) L Glucose (Fingerstick) 122mg/dL (70-99) H White Blood Count 9.1x10^3/uL (4.0-11.0) Red Blood Count 3.41x10^6/uL (3.50-5.40) L Hemoglobin 9.7g/dL (12.0-15.5) L Hematocrit 30.3% (36.0-47.0) L Mean Corpuscular Volume 89fL (79-100) Mean Corpuscular Hemoglobin 29pg (25-35) Mean Corpuscular Hemoglobin Concent 32g/dL (31-37) Red Cell Distribution Width 17.1% (11.5-14.5) H Platelet Count 306x10^3/uL (140-400) Neutrophils (%) (Auto) 65% (31-73) Lymphocytes (%) (Auto) 19% (24-48) L Monocytes (%) (Auto) 14% (0-9) H Eosinophils (%) (Auto) 1% (0-3) Basophils (%) (Auto) 0% (0-3) Neutrophils # (Auto) 5.9x10^3uL (1.8-7.7) Lymphocytes # (Auto) 1.7x10^3/uL (1.0-4.8) Monocytes # (Auto) 1.3x10^3/uL (0.0-1.1) H Eosinophils # (Auto) 0.1x10^3/uL (0.0-0.7) Basophils # (Auto) 0.0x10^3/uL (0.0-0.2) Lactic Acid Level 1.2mmol/L (0.4-2.0) Test 12/28/16 11:43 12/28/16 16:16 Glucose (Fingerstick) 146mg/dL (70-99) H 123mg/dL (70-99) H Current Medications: Meds: Current Medications Dextrose/Sodium Chloride (Iv D5% - 1/2 NS) 1,000 ml @ 100 mls/hr Q10H IV Last administered on 12/28/16 03:55; Start 12/27/16 at 19:00; Stop 12/28/16 at 14:16 ; Status DC Piperacillin Sod/ Tazobactam Sod (Zosyn Per Pharmacy) 1 each PRN DAILY PRN MC SEE COMMENTS Last administered on 12/27/16 20:39; Start 12/27/16 at 19:00 Bisacodyl (Dulcolax Supp) 10 mg PRN DAILY PRN NE CONSTIPATION Last administered on 12/27/16 21:50; Start 12/27/16 at 19:00 Ondansetron HCl (Zofran) 4 mg PRN Q6HRS PRN IV NAUSEA/VOMITING; Start 12/27/16 at 19:30 Acetaminophen 650 mg 650 mg PRN Q4HRS PRN PO PAIN / TEMP Last administered on 10:02; Start 12/27/16 at 19:30; Stop 12/28/16 at 14:44; Status DC Piperacillin Sod/ Tazobactam Sod 3.375 gm/Sodium Chloride 50 ml @ 100 mls/hr Q6H IV Last administered on 12/28/16 15:51; Start 12/27/16 at 22:00 Sodium Chloride 250 ml @ As Directed STK-MED ONCE .ROUTE Last administered on 12/27/16 21:55; Start 12/27/16 at 21:52; Stop 12/27/16 at 21:53; Status DC Potassium Chloride/Dextrose (KCl 40 Meq In D5W Solution) 1,000 ml @ 75 mls/hr [id number] IV Last administered on 12/28/16 15:52; Start 12/28/16 at 14:00 Acetaminophen (Tylenol) 650 mg PRN Q6HRS PRN PO fever/pain; Start 12/28/16 at 14:45 Acetaminophen (Tylenol) 650 mg DAILY PO ; Start 12/29/16 at 09:00 Aripiprazole (Abilify) 10 mg HS PO ; Start 12/28/16 at 21:00 Citalopram Hydrobromide (Celexa) 20 mg HS PO ; Start 12/28/16 at 21:00 Cyclosporine (Restasis) 1 drop BID OU ; Start 12/28/16 at 21:00 Divalproex Sodium (Depakote Er) 500 mg QHS PO ; Start 12/28/16 at 21:00 Ferrous Sulfate (Feosol) 325 mg BIDWMEALS PO Last administered on 12/28/16t 16: 51; Start 12/28/16 at 17:00 Lisinopril (Prinivil) 5 mg DAILY PO ; Start 12/29/16 at 09:00 Al Hydroxide/Mg Hydroxide (Mylanta Plus Xs) 15 ml PRN AFTMEALHC PRN PO DYSPEPSIA; Start 12/28/16 at 14:45 Magnesium Oxide (Magnesium Oxide) 400 mg TID PO ; Start 12/28/16 at 21:00 Memantine (Namenda) 10 mg BID PO ; Start 12/28/16 at 21:00 Multi-Ingredient Ointment (Analgesic [place]) 1 juan r PRN QID PRN TP MUSCLE PAIN; Start 12/28/16 at 14:45 Metoprolol Succinate (Toprol Xl) 12.5 mg BID PO ; Start 12/28/16 at 21:00 Olanzapine (Zyprexa Zydis) 5 mg PRN Q2HR PRN PO ANXIETY / AGITATION; Start 09/03 at 14:45 Oxybutynin Chloride (Ditropan) 2.5 mg DAILY PO ; Start 12/29/16 at 09:00 Polyethylene Glycol (miraLAX) 17 gm BID PO ; Start 12/28/16 at 21:00 Artificial Tears (Artificial Tears) 1 drop DAILY OU ; Start 12/29/16 at 09:00 Ropinirole HCl (Requip) 0.5 mg TID PO ; Start 12/28/16 at 21:00 Trazodone HCl (Desyrel) 100 mg QHS PO ; Start 12/28/16 at 21:00 Atorvastatin Calcium (Lipitor) 80 mg QHS PO ; Start 12/28/16 at 21:00 Benztropine Mesylate (Cogentin) 2 mg BID PO ; Start 12/28/16 at 21:00 Calcium/Vitamin D (Oscal D 500mg/ 200uts) 1 tab BIDWMEALS PO Last administered on 12/28/16 16:51; Start 12/28/16 at 17:00 Docusate Sodium (Colace) 200 mg PRN QHS PRN PO CONSTIPATION; Start 12/28/16 at 15:15 Hydroxyzine HCl (Atarax) 50 mg PRN Q2HR PRN PO ANXIETY / AGITATION; Start 12/28 at 15:15 Magnesium Hydroxide (Milk Of Magnesia) 2,400 mg PRN QHS PRN PO CONSTIPATION; Start 12/28/16 at 15:30 Metformin HCl (Glucophage) 1,000 mg BIDWMEALS PO Last administered on 16:51; Start 12/28/16 at 17:00 Pantoprazole Sodium (Protonix) 40 mg DAILY PO ; Start 12/29/16 at 09:00 Saliva Substitute (Biotene Dry Mouth) 1 juan r PRN TID PRN PO DRY MOUTH; Start 09/03 at 15:30 Non-Formulary Medication 1 applic PRN TID PRN PO DRY MOUTH; Start 12/28/16 at 14:45; Status UNV Active Scripts Active Reported Trazodone Hcl 100 Mg Tablet 1 Tab PO QHS Biotene Oralbalance (Saliva Stimulant Agents Comb.2) 44.3 Ml Liquid 1 Applic PO PRN TID PRN Tylenol (Acetaminophen) 325 Mg Tablet 650 Mg PO DAILY Biotene Oralbalance (Saliva Stimulant Agents Comb.2) 44.3 Ml Liquid 1 Juan R PO PRN Q15MIN PRN Polyvinyl Alcohol 15 Ml Drops 1 Drop OP DAILY Zyprexa Zydis (Olanzapine) 5 Mg Tab.rapdis 5 Mg PO PRN Q2HR PRN Analgesic [place] (Methyl Salicylate/Menthol) 29 Gm Oint...g. 1 Juan R TP PRN QID PRN Mag-Al Plus Xs Suspension (Mag Hydrox/Al Hydrox/Simeth) 30 Ml Oral.susp 15 Ml PO PRN AFTMEALHC PRN Hydroxyzine Hcl 50 Mg Tablet 50 Mg PO PRN Q2HR PRN Depakote Er (Divalproex Sodium) 500 Mg Tab.er.24h 750 Tab PO QHS Abilify (Aripiprazole) 10 Mg Tablet 1 Tab PO HS Omeprazole 40 Mg Capsule.dr 40 Mg PO DAILY Metoprolol Succinate ( Xl ) (Metoprolol Succinate) 25 Mg Tab.er.24h 12.5 Mg PO BID Metformin Hcl 1,000 Mg Tablet 1,000 Mg PO BIDWMEALS Lisinopril 5 Mg Tablet 5 Mg PO DAILY Ferrous Sulfate 325 Mg Tablet 325 Mg PO BID Magnesium Oxide 400 Mg Tablet 400 Mg PO TID Namenda (Memantine Hcl) 10 Mg Tablet 10 Mg PO BID Lipitor (Atorvastatin Calcium) 80 Mg Tablet 80 Mg PO QHS Ropinirole Hcl 0.5 Mg Tablet 0.5 Mg PO TID Polyethylene Glycol 3350 17 Gm Powd.pack 17 Gm PO BID Oxybutynin Chloride 5 Mg Tablet 2.5 Mg PO DAILY Milk Of Magnesia (Magnesium Hydroxide) 2,400 Mg/10 Ml Oral.susp 2,400 Mg PO PRN QHS PRN Docusate Sodium 100 Mg Tablet 200 Mg PO PRN HS PRN Restasis (Cyclosporine) 1 Each Droperette 1 Drop OU BID Citalopram Hbr (Citalopram Hydrobromide) 20 Mg Tablet 20 Mg PO HS Calcitrate + Vit D Caplet (Calcium Citrate/Vitamin D3) 1 Each Tablet 1 Tab PO DAILY Benztropine Mesylate 2 Mg Tablet 2 Mg PO BID Acetaminophen 500 Mg Tablet 650 Mg PO PRN Q6HRS PRN MAXIMUM DOSE OF ACETAMINIOPHEN IS 4,000 MG IN 24 HOURS FROM ALL SOURCES FOR ADULTS. LAST DOSE GIVEN: NOT GIVEN THIS ADMISSION NEXT DOSE DUE: DATE: TODAY TIME: IF NEEDED Diagnosis: Problems: (1) Anxiety disorder (2) Impulse control disorder (3) Psychosis, atypical (4) Healthcare-associated pneumonia DONNELL VELASQUEZ MD Dec 28, 2016 20:53
[2016-12-28] MEDS ORDERED: ATORVASTATIN CALCIUM 20 MG TABLET PO SCH (21:00)
[2016-12-28] MEDS ORDERED: DIVALPROEX ER 500 MG TAB.ER.24H PO SCH (21:00)
[2016-12-28] MEDS ORDERED: CITALOPRAM 20 MG TABLET. PO SCH (21:00)
[2016-12-28] MEDS ORDERED: ARIPIPRAZOLE 10 MG TABLET PO SCH (21:00)
[2016-12-28] MEDS: POLYETHYLENE GLYCOL 3350 17 GM PACKET. PO SCH (21:00)
[2016-12-28] MEDS ORDERED: traZODone 100 MG TABLET. PO SCH (21:00)
[2016-12-28] MEDS: CYCLOSPORINE 0.05% OPTH DROPERETTE. OU SCH (21:19)
[2016-12-28] MEDS: BENZTROPINE MESYLATE 1 MG TABLET PO SCH (21:19)
[2016-12-28] MEDS: rOPINIRole 0.5 MG TABLET. PO SCH (21:20)
[2016-12-28] MEDS: MEMANTINE 10 MG TABLET. PO SCH (21:20)
[2016-12-28] MEDS: MAGNESIUM OXIDE 400 MG TABLET PO SCH (21:20)
[2016-12-28] MEDS: METOPROLOL SUCC 24HR ER 25 MG TAB.ER.24H. PO SCH (21:28)
[2016-12-29] MEDS: POTASSIUM CL 40MEQ IN D5W 1,000 ML IV SCH (03:21)
[2016-12-29] MEDS: PIPERACILLIN/TAZOBACTAM 3.375 GM in IV NORMAL SALINE 50ML 50 ML IV SCH ×2 (03:22→09:24)
[2016-12-29 05:45] VITALS: BP 125/61
[2016-12-29 06:55] LABS: HEMATOCRIT 29.8 % (36.0-47.0); HEMOGLOBIN 9.8 g/dL (12.0-15.5); RED BLOOD COUNT 3.33 x10^6/uL (3.50-5.40); RED CELL DISTRIBUTION WIDTH 17.1 % (11.5-14.5); WHITE BLOOD COUNT 9.7 x10^3/uL (4.0-11.0)
[2016-12-29 07:08] LABS: CALCIUM 8.3 mg/dL (8.5-10.1); CREATININE 0.8 mg/dL (0.6-1.0); GFR 69.4; POTASSIUM 4.1 mmol/L (3.5-5.1)
[2016-12-29] MEDS ORDERED: ACETAMINOPHEN 325 MG TABLET PO SCH (09:00)
[2016-12-29] MEDS ORDERED: PANTOPRAZOLE 40 MG TABLET. PO SCH (09:00)
[2016-12-29] MEDS ORDERED: LISINOPRIL 5 MG TABLET. PO SCH (09:00)
[2016-12-29] MEDS ORDERED: OXYBUTYNIN CHLORIDE 5 MG TABLET PO SCH (09:00)
[2016-12-29] MEDS ORDERED: POLYVINYL ALCOHOL 1.4% OPHTH SOLUTION 15ML BOTTLE. OU SCH (09:00)
[2016-12-29] MEDS: CYCLOSPORINE 0.05% OPTH DROPERETTE. OU SCH (09:14)
[2016-12-29] MEDS: POLYETHYLENE GLYCOL 3350 17 GM PACKET. PO SCH (09:14)
[2016-12-29] MEDS: METFORMIN 500 MG TABLET. PO SCH (09:15)
[2016-12-29] MEDS: FERROUS SULFATE 325 MG TABLET PO SCH (09:16)
[2016-12-29] MEDS: MAGNESIUM OXIDE 400 MG TABLET PO SCH ×2 (09:16→13:49)
[2016-12-29] MEDS: CALCIUM CARB/VIT D3 500/200 TABLET PO SCH (09:16)
[2016-12-29] MEDS: BENZTROPINE MESYLATE 1 MG TABLET PO SCH (09:18)
[2016-12-29] MEDS: MEMANTINE 10 MG TABLET. PO SCH (09:20)
[2016-12-29] MEDS: rOPINIRole 0.5 MG TABLET. PO SCH ×2 (09:20→13:49)
[2016-12-29] MEDS: METOPROLOL SUCC 24HR ER 25 MG TAB.ER.24H. PO SCH (09:22)
[2016-12-29 14:12] VITALS: BP 107/69
[2016-12-29] MEDS ORDERED: AMOXICILLIN/K CLAV 500/125MG TABLET. PO SCH (21:00)
--- NOTE | 2016-12-30 01:51 | PN ---
DATE: 12/28/2016 PSYCHIATRIC CONSULTATION/PSYCHIATRIC PROGRESS NOTE This note covers elements not covered in my initial note. This is a note that covers initial consultation requested by Dr. Pacheco after the patient was transferred to [address] [place] [address] [facility] after she developed lethargy, garbled speech, confusion along with dehydration and sepsis. The patient was being stabilized on the [facility] for her schizoaffective disorder with psychotic features, having being referred from the custodial. From a psychiatric standpoint, she was doing better, but then became medically compromised resulting in this transfer down. Discussed with nursing staff, reviewed current and past records. From a psychiatric standpoint, the patient has been fairly stable, not overtly psychotic or agitated. She is quite verbal open as I met with her, readily recognized me. REVIEW OF SYSTEMS: Ambulation impaired. No CV, , pulmonary, eye, ENT system symptoms on review. MENTAL STATUS EXAM: Oriented to herself and situation. Speech is still low in rate and rhythm, low in volume. Abstraction fair, computation impaired. No clear psychotic symptoms. No suicidal or homicidal ideation. Attention span short. Language function intact. LABORATORY DATA: Reviewed. IMPRESSION: Schizoaffective disorder, bipolar type, with psychotic features, in partial remission. Rest medical diagnosis as noted above. PLAN: From a psychiatric standpoint, continue psychotropics mentioned in my initial note. May adjust further as clinically indicated. MAN Gracia VELASQUEZ MD DR: JUSTIN/pattie JOB#: [id number] / [id number]
== END 2016-12-29 15:40 | DRG 871 ==
LOC: 1 SOUTH 18:30
PROVIDERS: ADMIT Internal Medicine; ATTEND Internal Medicine
DX: A41.9 Sepsis, unspecified organism (principal); G92 Toxic encephalopathy; E87.0 Hyperosmolality and hypernatremia; E87.2 Acidosis; N17.9 Acute kidney failure, unspecified; E11.22 Type 2 diabetes mellitus with diabetic chronic kidney disease; F41.9 Anxiety disorder, unspecified; F63.9 Impulse disorder, unspecified; I12.9 Hypertensive chronic kidney disease with stage 1 through stage 4 chronic kidney disease, or unspecified chronic kidney disease; K21.9 Gastro-esophageal reflux disease without esophagitis; K59.00 Constipation, unspecified; N18.9 Chronic kidney disease, unspecified; Y95 Nosocomial condition; F25.0 Schizoaffective disorder, bipolar type; F03.90 Unspecified dementia, unspecified severity, without behavioral disturbance, psychotic disturbance, mood disturbance, and anxiety; F32.9 Major depressive disorder, single episode, unspecified; Z88.8 Allergy status to other drugs, medicaments and biological substances
CPT/HCPCS: 36415; 80048; 80053; 81001; 82947; 83605; 83615; 85027; 87040; 87086; 87641; J2543; J7050; 97110; 97116; 97530